=== PATIENT | female | born 1975 | race Caucasian/White ===

== ENCOUNTER 2017-08-09 08:04 | Emergency (ER) | payer BC ==
[~2017-08-09] VITALS: Ht 170.2 cm; Wt 88.3 kg
[~2017-08-09 08:04] MED LIST: CYCL-36 PO; IBUP800 PO; POTA10TA48 PO; PRED50 PO
[2017-08-09 08:05] VITALS: BP 120/60; PULSE 100; RESP 16; TEMP 101.3; O2SAT 95
[2017-08-09] MEDS ORDERED: ACETAMINOPHEN 325 MG TAB PO ONE (08:30)
[2017-08-09] MEDS ORDERED: ZOFR4TAB3 SL (08:34)
--- NOTE | 2017-08-09 08:35 | PD ---
HPI Chief Complaint: Cold / Flu Symptoms Time Seen by Provider: 08:20 Travel History International Travel<30 days: No Contact w/Intl Traveler<30days: No Traveled to known affect area: No History of Present Illness HPI This 42-year-old female has been sick for over a week. She had a upper respiratory symptoms for about a week with sore throat congestion. 2 days ago she started having fever headache. She had some vomiting at that time which has resolved. This continues to have fever sore throat. She has had a mild cough. She has generally healthy. She is not on any medication. 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 She is having diffuse myalgias PFSH Past Medical History Autoimmune Disease: No Cancer: No Cardiovascular Problems: No Diabetes: No Diminished Hearing: No Endocrine: No Gastrointestinal Disorders: Yes (CROHN'S) GERD: Yes Genitourinary: No Hiatal Hernia: No Immune Disorder: No Musculoskeletal: No Neurologic: No Psychiatric: No Reproductive: No Respiratory: No Immunizations Current: Yes Thyroid Disease: No Ulcer: No Tetanus Vaccination: Unknown Influenza Vaccination: No ?: Not LMP: 1 WEEK AGO Past Surgical History Abdominal Surgery: Yes (CHOLEYSYSTECTOMY, APPENDECTOMY,) Appendectomy: Yes Cardiac Surgery: No Cholecystectomy: Yes Ear Surgery: No Endocrine Surgery: No Eye Surgery: No Gynecologic Surgery: No Oral Surgery: No Thoracic Surgery: No Other Surgery: Yes (BOWEL RESECTION FROM CHRON'S) Social History Alcohol Use: No Tobacco Use: Yes (07/25 PPD) Substance Use: No Allergies-Medications (Allergen,Severity, Reaction): Coded Allergies: No Known Allergies (Unverified Adverse Reaction, Unknown, 08/09/17) Reported Meds & Prescriptions Reported Meds & Active Scripts Active No Active Prescriptions or Reported Medications Review of Systems General / Constitutional: Positive: Fever, Chills Eyes: Positive: Photophobia, No: Diploplia HENT: Positive: Headaches, Sore Throat Cardiovascular: No: Chest Pain or Discomfort Respiratory: Positive: Cough, No: Shortness of Breath, Wheezing Gastrointestinal: Positive: Nausea, Vomiting Genitourinary: No: Urgency, Frequency Musculoskeletal: Positive: Myalgias Endocrine: No: Heat Intolerance, Cold Intolerance Hematologic/Lymphatic: No: Easy Bruising Physical Exam Narrative GENERAL: Well-developed female. Temperature 101.3 SKIN: Focused skin assessment warm/dry. HEAD: Atraumatic. Normocephalic. EYES: Pupils equal and round. No scleral icterus. No injection or drainage. ENT: No nasal bleeding or discharge. Mucous membranes pink and moist. Posterior pharynx erythematous without exudate NECK: Trachea midline. No JVD. Some shotty anterior cervical adenopathy CARDIOVASCULAR: Regular rate and rhythm. No murmur appreciated. RESPIRATORY: No accessory muscle use. Clear to auscultation. Breath sounds equal bilaterally. GASTROINTESTINAL: Abdomen soft, non-tender, nondistended. Hepatic and splenic margins not palpable. MUSCULOSKELETAL: No obvious deformities. No clubbing. No cyanosis. No edema. NEUROLOGICAL: Awake and alert. No obvious cranial nerve deficits. Motor grossly within normal limits. Normal speech. PSYCHIATRIC: Appropriate mood and affect; insight and judgment normal. Data Data Last Documented VS Vital Signs Date Time Temp Pulse Resp B/P (MAP) Pulse Ox O2 Delivery O2 Flow Rate FiO2 08/09/17 08:25 Room Air 08/09/17 08:05 101.3 100 16 120/60 (80) 95 Orders Orders Acetaminophen (Tylenol) (08/09/17 08:30) MDM Medical Decision Making Medical Screen Exam Complete: Yes Emergency Medical Condition: Yes Medical Record Reviewed: Yes Differential Diagnosis Differential includes viral syndrome, influenza, Narrative Course Symptoms are most consistent with influenza. She is not a candidate for Tamiflu as she has been sick for over 2 day days. I will recommend rest, Tylenol or Advil for fever Diagnosis Primary Impression: Influenza Departure Forms: Tests/Procedures, Work Release Enter return to work date: Aug 13, 2017 Scripts Ondansetron Odt (Zofran Odt) 4 Mg Tab 4 MG SL Q6HR Y for Nausea/Vomiting, #10 TAB 0 Refills Prov: Gil Wu MD 08/09/17 Disposition: DISCHARGE HOME Condition: Stable Gil Wu MD Aug 09, 2017 08:35
== END 2017-08-09 08:56 | disposition home or self-care (01) ==
LOC: PHED 08:04
DX: J11.1 Influenza due to unidentified influenza virus with other respiratory manifestations (principal); R50.9 Fever, unspecified; R07.0 Pain in throat; R05 Cough; M79.1 Myalgia; F17.200 Nicotine dependence, unspecified, uncomplicated; Z87.19 Personal history of other diseases of the digestive system
CPT/HCPCS: 99283

== ENCOUNTER 2017-12-19 22:08 | Inpatient (IN) | payer BC ==
[~2017-12-19] VITALS: Ht 170.2 cm; Wt 86.2 kg
[~2017-12-19 22:08] MED LIST changes: -CYCL-36 PO; -IBUP800 PO; -POTA10TA48 PO; -PRED50 PO; +ZOFR4TAB3 SL
[2017-12-19 22:12] VITALS: BP 121/74; PULSE 95; RESP 16; TEMP 98.3; O2SAT 96
[2017-12-19] MEDS ORDERED: SODIUM CHLOR 0.9% 1000 ML INJ 1,000 ML IV SCH (22:22)
[2017-12-19] MEDS ORDERED: SODIUM CHLORIDE 0.9% FLUSH 10 ML FLUSH IV FLUSH PRN (22:30)
[2017-12-19] MEDS ORDERED: MORPHINE SULFATE 4 MG/ML INJ IV ONE (22:45)
[2017-12-19] MEDS ORDERED: methylPREDNISolone SOD SUCC 125 MG/2 ML VIAL IV PUSH ONE (22:45)
--- NOTE | 2017-12-19 22:49 | PD ---
HPI . Abdominal pain Chief Complaint: GI Complaint Time Seen by Provider: 22:19 Travel History International Travel<30 days: No Contact w/Intl Traveler<30days: No Traveled to known affect area: No History of Present Illness HPI This patient presents with a 10 day history of right-sided abdominal pain. She believes that she is having an exacerbation of her Crohn's disease. Her symptoms have been persistent and getting progressively worse. Pain is currently rated 6/10. She really does not have much in the way of associated symptoms. She always has loose stools. She has had no fever, vomiting or urinary tract symptoms. She is currently taking no medications for her Crohn's disease. She states that she is not able to afford them. She has had a previous resection of both her small and large bowel as well as a cholecystectomy and appendectomy. She has had at least 2 previous small bowel obstructions. PFSH Past Medical History Autoimmune Disease: No Cancer: No Cardiovascular Problems: No Diabetes: No Diminished Hearing: No Endocrine: No Gastrointestinal Disorders: Yes (CROHN'S) GERD: Yes Genitourinary: No Hiatal Hernia: No Immune Disorder: No Implanted Vascular Access Dvce: No Musculoskeletal: No Neurologic: No Psychiatric: No Reproductive: No Respiratory: No Immunizations Current: Yes Thyroid Disease: No Ulcer: No Tetanus Vaccination: > 5 Years Influenza Vaccination: No ?: Not LMP: 12/05/17 Past Surgical History Abdominal Surgery: Yes (CHOLEYSYSTECTOMY, APPENDECTOMY,) Appendectomy: Yes Cardiac Surgery: No Cholecystectomy: Yes Ear Surgery: No Endocrine Surgery: No Eye Surgery: No Gynecologic Surgery: No Neurologic Surgery: No Oral Surgery: No Thoracic Surgery: No Other Surgery: Yes (BOWEL RESECTION FROM CHRON'S) Social History Alcohol Use: No Tobacco Use: Yes (07/25 PPD) Substance Use: Yes (Marijuana OCC) Allergies-Medications (Allergen,Severity, Reaction): Coded Allergies: No Known Allergies (Unverified Adverse Reaction, Unknown, 12/19/17) Reported Meds & Prescriptions Reported Meds & Active Scripts Active Zofran Odt (Ondansetron Odt) 4 Mg Tab 4 Mg SL Q6HR PRN Review of Systems Except as stated in HPI: all other systems reviewed are Neg General / Constitutional: No: Fever, Chills Gastrointestinal: Positive: Diarrhea, Abdominal Pain, No: Nausea, Vomiting Genitourinary: No: Urgency, Frequency, Dysuria Physical Exam Narrative GENERAL: Awake and alert and in no acute distress. SKIN: warm/dry. HEAD: Normocephalic. Atraumatic. EYES: Pupils equal and round. No scleral icterus. No injection or drainage. ENT: No nasal bleeding or discharge. Mucous membranes pink and moist. NECK: Trachea midline. Full range of motion without pain.. CARDIOVASCULAR: Regular rate and rhythm. Heart sounds normal. RESPIRATORY: No accessory muscle use. Clear to auscultation. Breath sounds equal bilaterally. GASTROINTESTINAL: Abdomen soft. Diffuse tenderness on the right side. Bowel sounds present. Nondistended. MUSCULOSKELETAL: No obvious deformities. NEUROLOGICAL: Awake and alert. No obvious cranial nerve deficits. Motor grossly within normal limits. Normal speech. PSYCHIATRIC: Appropriate mood and affect; insight and judgment normal. Data Data Last Documented VS Vital Signs Date Time Temp Pulse Resp B/P (MAP) Pulse Ox O2 Delivery O2 Flow Rate FiO2 12/19/17 22:30 16 12/19/17 22:12 98.3 95 121/74 (90) 96 Orders Orders Complete Blood Count With Diff (12/19/17 22:22) Comprehensive Metabolic Panel (12/19/17 22:22) Lipase (12/19/17 22:22) Lactic Acid (12/19/17 22:22) Iv Access Insert/Monitor (12/19/17 22:22) Sodium Chlor 0.9% 1000 Ml Inj (Ns 1000 M (12/19/17 22:22) Sodium Chloride 0.9% Flush (Ns Flush) (12/19/17 22:30) Ed Urine Pregnancytest Poc (12/19/17 22:22) Ct Abd/Pel W Iv Contrast(Rout) (12/19/17 22:28) Morphine Inj (Morphine Inj) (12/19/17 22:45) Methylprednisolone So Succ Inj (Solumedr (12/19/17 22:45) Magnesium (Mg) (12/19/17 22:40) Potassium Chloride (Kcl) (12/19/17 23:15) Iohexol 350 Inj (Omnipaque 350 Inj) (12/19/17 23:39) Piperacil-Tazo 4.5 Gm Premix (Zosyn 4.5 (12/20/17 00:15) Consult General Surgery (12/20/17 ) Admit To Inpatient (12/20/17 ) Vital Signs (Adult) Q4H (12/20/17 00:30) Activity Oob With Assistance (12/20/17 00:30) [facility] / Telemetry .CONTINUOUS (12/20/17 00:30) Diet Npo (12/20/17 Breakfast) D5-1/2 Ns + Kcl 20 Meq Inj (D5-1/2 Ns + (12/20/17 00:30) Sodium Chloride 0.9% Flush (Ns Flush) (12/20/17 00:30) Sodium Chloride 0.9% Flush (Ns Flush) (12/20/17 09:00) Basic Metabolic Panel (Bmp) (12/20/17 06:00) Complete Blood Count With Diff (12/20/17 06:00) Scd Bilateral/Knee High HILDA.BID (12/20/17 00:30) Angel Bilateral/Knee High HILDA.QSHIFT (12/20/17 00:30) Naloxone Inj (Narcan Inj) (12/20/17 00:30) Inpatient Certification (12/20/17 ) Piperacil-Tazo 3.375 Gm Premix (Zosyn 3. (12/20/17 06:00) Prochlorperazine Inj (Compazine Inj) (12/20/17 00:45) Morphine Inj (Morphine Inj) (12/20/17 00:30) Admit Order (Ed Use Only) (12/20/17 ) Vital Signs (Adult) Q4H (12/20/17 00:44) Activity Oob With Assistance (12/20/17 00:44) Notify Dr: Other (12/20/17 00:44) Labs Laboratory Tests Test 12/19/17 22:40 White Blood Count 15.2 TH/MM3 Red Blood Count 4.08 MIL/MM3 Hemoglobin 10.9 GM/DL Hematocrit 32.7 % Mean Corpuscular Volume 80.2 FL Mean Corpuscular Hemoglobin 26.9 PG Mean Corpuscular Hemoglobin Concent 33.5 % Red Cell Distribution Width 13.4 % Platelet Count 474 TH/MM3 Mean Platelet Volume 7.9 FL Neutrophils (%) (Auto) 69.2 % Lymphocytes (%) (Auto) 20.6 % Monocytes (%) (Auto) 4.8 % Eosinophils (%) (Auto) 0.7 % Basophils (%) (Auto) 4.7 % Neutrophils # (Auto) 10.6 TH/MM3 Lymphocytes # (Auto) 3.1 TH/MM3 Monocytes # (Auto) 0.7 TH/MM3 Eosinophils # (Auto) 0.1 TH/MM3 Basophils # (Auto) 0.7 TH/MM3 CBC Comment DIFF FINAL Differential Comment Blood Urea Nitrogen 5 MG/DL Creatinine 0.93 MG/DL Random Glucose 105 MG/DL Total Protein 7.6 GM/DL Albumin 3.0 GM/DL Calcium Level 8.8 MG/DL Magnesium Level 1.8 MG/DL Alkaline Phosphatase 99 U/L Aspartate Amino Transf (AST/SGOT) 17 U/L Alanine Aminotransferase (ALT/SGPT) 27 U/L Total Bilirubin 0.3 MG/DL Sodium Level 140 MEQ/L Potassium Level 2.8 MEQ/L Chloride Level 105 MEQ/L Carbon Dioxide Level 30.4 MEQ/L Anion Gap 5 MEQ/L Estimat Glomerular Filtration Rate 66 ML/MIN Lactic Acid Level 1.1 mmol/L Lipase 98 U/L [facility] Medical Decision Making Medical Screen Exam Complete: Yes Emergency Medical Condition: Yes Medical Record Reviewed: Yes (The patient was admitted here in 2016 with an exacerbation of her Crohn's disease. She was treated with Solu-Medrol followed by prednisone, Flagyl and Protonix. No operative procedure was required at that time. Her CT scan did show an SBO.) Differential Diagnosis Differential diagnosis of abdominal pain includes but is not limited to gastritis, pancreatitis, hepatitis, gastroenteritis, constipation, urinary retention, peptic ulcer disease, diverticulitis or appendicitis Narrative Course This patient presents with right-sided abdominal pain for the last week and a half. She has a history of Crohn's disease. She has had a previous cholecystectomy and appendectomy. She has also had previous partial resection of her small and large bowels. An IV has been started. She will be given IV morphine for pain. Solu-Medrol has been ordered for presumed inflammation. Routine abdominal pain labs are pending along with a lactic acid level. CT of the abdomen and pelvis have also been ordered. I have queried [facility]. She has not had any recent scheduled prescriptions filled in [place]. CBC & BMP Diagram 12/19/17 22:40 Total Protein 7.6, Albumin 3.0 L, Calcium Level 8.8, Magnesium Level 1.8, Alkaline Phosphatase 99, Aspartate Amino Transf (AST/SGOT) 17, Alanine Aminotransferase (ALT/SGPT) 27, Total Bilirubin 0.3 LA 1.1 Potassium has been replaced orally. Last Impressions Abdomen/Pelvis CT 12/19/179 Signed Impressions: CONCLUSION: Focal abscess is almost 3.1 cm in size adjacent to loops of bowel r ight lower quadrant with haziness of the adjacent mesenteric fat not present on the prior exam from 2016 and appears to be outside of the loops of bowel. I have ordered Zosyn. I will consult the hospitalist for admission with surgical consultation. IR may also be able to assist with the abscess. Diagnosis Primary Impression: Abdominal pain Qualified Codes: R10.11 - Right upper quadrant pain Additional Impressions: Hypokalemia Leukocytosis Qualified Codes: D72.829 - Elevated white blood cell count, unspecified Intra-abdominal abscess Admitting Information Admitting Physician Requests: Admit Condition: Stable Krystle Urbnia MD December 19, 2017 22:49
[2017-12-19 22:54] LABS: AUTOMATED NEUTROPHIL # 10.6 TH/MM3 (1.8-7.7); BASOPHIL # 0.7 TH/MM3 (0-0.2); BASOPHIL % 4.7 % (0.0-2.0); EOSINOPHIL # 0.1 TH/MM3 (0-0.4); EOSINOPHIL % 0.7 % (0.0-4.0); HEMATOCRIT 32.7 % (35.0-46.0); HEMOGLOBIN 10.9 GM/DL (11.6-15.3); LYMPH % 20.6 % (9.0-44.0); LYMPHOCYTE # 3.1 TH/MM3 (1.0-4.8); MEAN CELL VOLUME 80.2 FL (80.0-100.0); MEAN CORPUSCULAR HEMOGLOBIN 26.9 PG (27.0-34.0); MEAN CORPUSCULAR HGB CONC 33.5 % (32.0-36.0); MEAN PLATELET VOLUME 7.9 FL (7.0-11.0); MONO % 4.8 % (0.0-8.0); MONOCYTE # 0.7 TH/MM3 (0-0.9); NEUT % 69.2 % (16.0-70.0); PLATELET COUNT 474 TH/MM3 (150-450); RED BLOOD COUNT 4.08 MIL/MM3 (4.00-5.30); RED CELL DISTRIBUTION WIDTH 13.4 % (11.6-17.2); WHITE BLOOD COUNT 15.2 TH/MM3 (4.0-11.0)
[2017-12-19 23:06] LABS: ALKALINE PHOSPHATASE 99 U/L (45-117); ALT (GPT) 27 U/L (10-53); AST (GOT) 17 U/L (15-37); BICARBONATE 30.4 MEQ/L (21.0-32.0); BLOOD UREA NITROGEN 5 MG/DL (7-18); CALCIUM 8.8 MG/DL (8.5-10.1); CHLORIDE 105 MEQ/L (98-107); CREATININE 0.93 MG/DL (0.50-1.00); GLOMERULAR FILTRATION RATE 66 ML/MIN (>89); GLUCOSE,RANDOM 105 MG/DL (74-106); MAGNESIUM 1.8 MG/DL (1.5-2.5); SODIUM (NA) 140 MEQ/L (136-145); TOTAL BILIRUBIN ADULT 0.3 MG/DL (0.2-1.0); TOTAL PROTEIN 7.6 GM/DL (6.4-8.2)
[2017-12-19] MEDS ORDERED: POTASSIUM CHLORIDE 20 MEQ CONTROLLED RELEASE TAB PO ONE (23:15)
[2017-12-19] MEDS ORDERED: IOHEXOL 350 MG/ML 10 ML VIAL (for RAD DIAG) IVCONTRAST ONE (23:39)
--- NOTE | 2017-12-20 00:09 | RADRPT ---
EXAM DATE: 12/19/2017 11:50 PM EDT AGE/SEX: 42 years / Female INDICATIONS: Right abdominal pain. CLINICAL DATA: This is the patient's initial encounter. Patient reports that signs and symptoms have been present for 1 day and indicates a pain score of 6/10. MEDICAL/SURGICAL HISTORY: Crohn's disease. Colon resection. Cholecystectomy. Appendectomy. ORAL CONTRAST: No oral contrast ingested. RADIATION DOSE: 17.41 CTDI (mGy) COMPARISON: [facility], CT ABDOMEN & PELVIS W CONTRAST, 08/07/2015. . TECHNIQUE: Multiple contiguous axial images were obtained through the abdomen and pelvis following b olus infusion of 95 ml Omnipaque 350 (iohexol) nonionic water-soluble contrast as a single exam dos e. No oral contrast ingested. Using automated exposure control and adjustment of the mA and/or kV ac cording to patient size, the radiation dose was kept as low as reasonably achievable to obtain optima l diagnostic quality images. FINDINGS: Abdomen CT: The liver, spleen, pancreas, kidneys, adrenals are unremarkable. There is no evidence for any appreci able pathological adenopathy, free fluid. There is slight dependent atelectasis in both lung bases. There are postsurgical changes in the right lower quadrant from prior colon resection and appendectom y with haziness of the mesenteric fat plane at this site and there are a few loops of small bowel sli ghtly dilated maximum diameter of almost 3.6 cm. The rest of the small bowel loops and colon appear d ecompressed. Adjacent to these loops of bowel are slightly prominent there is fluid and gas collectio n appears to be outside of the loops of bowel measures almost 3.1 cm in size highly suspicious for an abscess outside of the loops of bowel. Pelvic CT: There is no evidence for mass, abscess formation, or any significant adenopathy within the pelvis. T here are multiple tiny bone islands within the pelvic bones including bilateral proximal femurs, righ t ischium, bilateral pubic rami and iliac bones. Approximate 2.8 cm cyst is present in the right ovar y. CONCLUSION: Focal abscess is almost 3.1 cm in size adjacent to loops of bowel right lower quadrant wi th haziness of the adjacent mesenteric fat not present on the prior exam from 2015 and appears to be outside of the loops of bowel. Electronically signed by: iNa Jhaveri MD 12/20/2017 12:08 AM EDT
[2017-12-20] MEDS ORDERED: PIPERACIL-TAZO 4.5 GM PREMIX 100 ML IV ONE (00:15)
[2017-12-20] MEDS ORDERED: SODIUM CHLORIDE 0.9% FLUSH 10 ML FLUSH IV FLUSH PRN (00:30)
[2017-12-20] MEDS ORDERED: NALOXONE HCL 0.4 MG/ML AMP IV PUSH PRN (00:30)
[2017-12-20] MEDS ORDERED: PROCHLORPERAZINE INJ 10 MG/2 ML VIAL IM PRN (00:45)
[2017-12-20] MEDS: MORPHINE SULFATE 4 MG/ML INJ IV PUSH PRN ×5 (00:58→23:54)
[2017-12-20] MEDS: D5-1/2 NS + KCL 20 MEQ INJ 1,000 ML IV SCH ×3 (00:58→19:13)
[2017-12-20 01:00] VITALS: BP 126/78; PULSE 80; RESP 16; O2SAT 98
[2017-12-20 01:48] VITALS: BP 122/77; PULSE 81; RESP 20; TEMP 97.8; O2SAT 95
[2017-12-20] MEDS: PIPERACIL-TAZO 3.375 GM PREMIX 50 ML IV SCH ×3 (05:00→23:47)
[2017-12-20 06:39] LABS: AUTOMATED NEUTROPHIL # 14.4 TH/MM3 (1.8-7.7); BASOPHIL % 0.2 % (0.0-2.0); EOSINOPHIL # 0.1 TH/MM3 (0-0.4); EOSINOPHIL % 0.6 % (0.0-4.0); HEMATOCRIT 32.2 % (35.0-46.0); HEMOGLOBIN 10.8 GM/DL (11.6-15.3); LYMPH % 5.5 % (9.0-44.0); LYMPHOCYTE # 0.8 TH/MM3 (1.0-4.8); MEAN CELL VOLUME 80.8 FL (80.0-100.0); MEAN CORPUSCULAR HGB CONC 33.4 % (32.0-36.0); MEAN PLATELET VOLUME 8.4 FL (7.0-11.0); MONO % 0.6 % (0.0-8.0); MONOCYTE # 0.1 TH/MM3 (0-0.9); NEUT % 93.1 % (16.0-70.0); PLATELET COUNT 419 TH/MM3 (150-450); RED BLOOD COUNT 3.98 MIL/MM3 (4.00-5.30); RED CELL DISTRIBUTION WIDTH 13.3 % (11.6-17.2); WHITE BLOOD COUNT 15.4 TH/MM3 (4.0-11.0)
[2017-12-20 07:04] LABS: BICARBONATE 24.4 MEQ/L (21.0-32.0); CALCIUM 8.1 MG/DL (8.5-10.1); CREATININE 0.78 MG/DL (0.50-1.00)
[2017-12-20 07:50] VITALS: BP 99/58; PULSE 66; RESP 20; TEMP 96; O2SAT 96
[2017-12-20] MEDS: metroNIDAZOLE 500 MG INJ 100 ML IV SCH ×2 (08:06→16:03)
[2017-12-20] MEDS: SODIUM CHLORIDE 0.9% FLUSH 10 ML FLUSH IV FLUSH SCH ×2 (08:08→21:00)
--- NOTE | 2017-12-20 10:41 | HHI.HP ---
[facility] No Primary Care Physician Admission Diagnosis intra-abdominal abscess, Crohn's Diagnoses: (1) Abdominal pain (2) Intra-abdominal abscess (3) Hypokalemia (4) Exacerbation of Crohn's disease Chief Complaint: Abdominal pain Travel History International Travel<30 Days: No Contact w/Intl Traveler <30 Da: No Traveled to Known Affected Are: No History of Present Illness Written by Lanie Laughlin, acting as scribe for Dr. Obando on 12/20/17 at 10:41. This is a pleasant 42-year-old female patient with a known medical history of Crohn's disease and GERD and history of bowel resection who presented to the ED with complaints of abdominal pain. Patient states her symptoms started 7 days ago shortly after taking the first couple doses of a Z-Troy prescribed for an URI. Patient complaints of mid-epigastric abdominal pain that has progressively gotten worse over the past week. The abdominal pain is characteristically "pressure-like" and sharp in nature, worsens with movement and any activity, is intermittent and radiates to her right upper and lower quadrant as well as down to her groin area. She states that the IV morphine has been effective for her pain since presentation. The patient rated her pain a 6 out of 10 at its worst on pain scale. Denies any associated nausea, vomiting. She does have a history of Crohn's disease, states she has diarrhea and loose stools frequently. Also admits to black stools and recently more fatigued than normal. Denies any history of anemia. Denies any recent fever, chills, dysuria. She does state that her upper respiratory complaints have since improved after the Z -troy. Follows with a PCP at [facility]. Does not have a aging box hand. Patient recently just obtained health insurance after lack of insurance for many years. Patient denies taking her Crohn's medications due to inability to afford them. Now that she has insurance she is following with her PCP. Last colonoscopy was 7 years ago and unaware of findings. Review of Systems Constitutional: COMPLAINS OF: Fatigue, DENIES: Diaphoretic episodes, Fever, Chills Eyes: DENIES: Diplopia Respiratory: DENIES: Cough, Sputum production, Shortness of breath Cardiovascular: DENIES: Chest pain, Palpitations Gastrointestinal: COMPLAINS OF: Abdominal pain, Black stools, Diarrhea, DENIES : Bloody stools, Constipation, Nausea, Vomiting Musculoskeletal: DENIES: Joint pain Hematologic/lymphatic: DENIES: Bruising Immunologic/allergic: DENIES: Eczema Neurologic: DENIES: Abnormal gait Psychiatric: DENIES: Anxiety Except as stated in HPI: all other systems reviewed are Neg Past Family Social History Past Medical History Crohn's disease GERD Tobacco abuse Past Surgical History History of bowel resection secondary to Crohn's, 11 years ago. Cholecystectomy Appendectomy Port placement for long-term antibiotics, history of blood clot. Has since been removed. Reported Medications Denies any medications. Allergies: Coded Allergies: No Known Allergies (Unverified Adverse Reaction, Unknown, 12/19/17) Active Ordered Medications Current Medications Medications (Trade) Dose Ordered Sig/Kindra Route Start Time Stop Time Status Last Admin Potassium Chloride/Dextrose/ Sod Cl 1,000 ml @ 100 mls/hr Q10H IV 12/20/17 00:30 12/20/17 00:58 (NS Flush) 2 ml UNSCH PRN IV FLUSH 12/20/17 00:30 (NS Flush) 2 ml BID IV FLUSH 12/20/17 09:00 12/20/17 08:08 (Narcan Inj) 0.4 mg UNSCH PRN IV PUSH 12/20/17 00:30 (Morphine Inj) 2 mg Q4H PRN IV PUSH 12/20/17 00:30 12/20/17 09:54 Piperacillin Sod/ Tazobactam Sod 50 ml @ 100 mls/hr Q6H IV 12/20/17 06:00 12/20/17 05:00 (Compazine Inj) 5 mg Q4H PRN IM 12/20/17 00:45 Metronidazole 100 ml @ 100 mls/hr Q8H IV 12/20/17 08:00 12/20/17 08:06 Family History Paternal medical history significant for diabetes. Mother had a history of IBS. Social History Patient admits to smoking half pack per day of cigarettes since her teen years. Admits to occasional marijuana use. Denies any alcohol use. Physical Exam Vital Signs Vital Signs Date Time Temp Pulse Resp B/P (MAP) Pulse Ox O2 Delivery O2 Flow Rate FiO2 12/20/17 07:50 96.0 66 20 99/58 (72) 96 12/20/17 05:02 18 12/20/17 01:48 97.8 81 20 122/77 (92) 95 12/20/17 01:24 12/20/17 01:00 80 16 126/78 (94) 98 Room Air 12/19/17 22:30 16 12/19/17 22:12 98.3 95 16 121/74 (90) 96 Physical Exam GENERAL: Well-developed, well-nourished patient in NAD. SKIN: Warm and dry. No rash. HEAD: Normocephalic. Atraumatic. EYES: Pupils equal and round. No scleral icterus. No injection or drainage. ENT: No nasal bleeding or discharge. Mucous membranes pink and moist. NECK: Supple. Trachea midline. CARDIOVASCULAR: Regular rate and rhythm. S1, S2 noted. No murmur appreciated. RESPIRATORY: No accessory muscle use. Clear to auscultation. Breath sounds equal bilaterally. GASTROINTESTINAL: Abdomen soft, non-tender, nondistended. Normoactive bowel sounds x4. MUSCULOSKELETAL: No obvious deformities. Extremities without clubbing, cyanosis , or edema. NEUROLOGICAL: Awake and alert. No obvious cranial nerve deficits. Motor grossly within normal limits. 5/5 muscle strength in bilateral upper and lower extremities. Normal speech. PSYCHIATRIC: Appropriate mood and affect; insight and judgment normal. Laboratory Laboratory Tests Test 12/19/17 22:40 12/20/17 05:40 White Blood Count 15.2 15.4 Red Blood Count 4.08 3.98 Hemoglobin 10.9 10.8 Hematocrit 32.7 32.2 Mean Corpuscular Volume 80.2 80.8 Mean Corpuscular Hemoglobin 26.9 27.0 Mean Corpuscular Hemoglobin Concent 33.5 33.4 Red Cell Distribution Width 13.4 13.3 Platelet Count 474 419 Mean Platelet Volume 7.9 8.4 Neutrophils (%) (Auto) 69.2 93.1 Lymphocytes (%) (Auto) 20.6 5.5 Monocytes (%) (Auto) 4.8 0.6 Eosinophils (%) (Auto) 0.7 0.6 Basophils (%) (Auto) 4.7 0.2 Neutrophils # (Auto) 10.6 14.4 Lymphocytes # (Auto) 3.1 0.8 Monocytes # (Auto) 0.7 0.1 Eosinophils # (Auto) 0.1 0.1 Basophils # (Auto) 0.7 0.0 CBC Comment DIFF FINAL DIFF FINAL Differential Comment Blood Urea Nitrogen 5 5 Creatinine 0.93 0.78 Random Glucose 105 150 Total Protein 7.6 Albumin 3.0 Calcium Level 8.8 8.1 Magnesium Level 1.8 Alkaline Phosphatase 99 Aspartate Amino Transf (AST/SGOT) 17 Alanine Aminotransferase (ALT/SGPT) 27 Total Bilirubin 0.3 Sodium Level 140 140 Potassium Level 2.8 3.6 Chloride Level 105 107 Carbon Dioxide Level 30.4 24.4 Anion Gap 5 9 Estimat Glomerular Filtration Rate 66 81 Lactic Acid Level 1.1 Lipase 98 Result Diagram: 12/20/17 0540 12/20/17 0540 Imaging Last Impressions Abdomen/Pelvis CT 12/19/17 3560 Signed Impressions: CONCLUSION: Focal abscess is almost 3.1 cm in size adjacent to loops of bowel r ight lower quadrant with haziness of the adjacent mesenteric fat not present on the prior exam from 2015 and appears to be outside of the loops of bowel. Septic Shock Reassessment Septic shock perfusion: reassessment completed Caprini VTE Risk Assessment Caprini VTE Risk Assessment: No/Low Risk (score <= 1) Caprini Risk Assessment Model Point Value = 1 Point Value = 2 Point Value = 3 Point Value = 5 Age 41-60 Minor surgery BMI > 25 kg/m2 Swollen legs Varicose veins or History of unexplained or recurrent spontaneous Oral contraceptives or hormone replacement Sepsis (< 1 month) Serious lung disease, including pneumonia (< 1 month) Abnormal pulmonary function Acute myocardial infarction Congestive heart failure (< 1 month) History of inflammatory bowel disease Medical patient at bed rest Age 61-74 Arthroscopic surgery Major open surgery (> 45 min) Laparoscopic surgery (> 45 min) Malignancy Confined to bed (> 72 hours) Immobilizing plaster cast Central venous access Age >= 75 History of VTE Family history of VTE Factor V Leiden Prothrombin [id number] Lupus anticoagulant Anticardiolipin antibodies Elevated serum homocysteine Heparin-induced thrombocytopenia Other congenital or acquired thrombophilia Stroke (< 1 month) Elective arthroplasty Hip, pelvis, or leg fracture Acute spinal cord injury (< 1 month) Prophylaxis Regimen Total Risk Factor Score Risk Level Prophylaxis Regimen 0-1 Low Early ambulation 2 Moderate Order ONE of the following: *Sequential Compression Device (SCD) *Heparin 5000 units SQ BID 3-4 Higher Order ONE of the following medications: *Heparin 5000 units SQ TID *Enoxaparin/Lovenox 40 mg SQ daily (WT < 150 kg, CrCl > 30 mL/min) *Enoxaparin/Lovenox 30 mg SQ daily (WT < 150 kg, CrCl > 10-29 mL/min) *Enoxaparin/Lovenox 30 mg SQ BID (WT < 150 kg, CrCl > 30 mL/min) AND/OR *Sequential Compression Device (SCD) 5 or more Highest Order ONE of the following medications: *Heparin 5000 units SQ TID (Preferred with Epidurals) *Enoxaparin/Lovenox 40 mg SQ daily (WT < 150 kg, CrCl > 30 mL/min) *Enoxaparin/Lovenox 30 mg SQ daily (WT < 150 kg, CrCl > 10-29 mL/min) *Enoxaparin/Lovenox 30 mg SQ BID (WT < 150 kg, CrCl > 30 mL/min) AND *Sequential Compression Device (SCD) Assessment and Plan Assessment and Plan This is a pleasant 42-year-old female patient with a known medical history of Crohn's disease and GERD and history of bowel resection who presented to the ED with complaints of abdominal pain. Abdominal focal abscess with associated abdominal pain History of Crohn's disease, untreated History of GERD - CT abdomen showing focal mass 3.1 cm in the right upper quadrant adjacent to loops of bowel. - Consult placed to colorectal surgeon as well as gastroenterology, input and recommendations pending. Colorectal surgeon will be ground control approach technician tomorrow, consult will be placed then. - Will transfer to [facility] for possible percutaneous drainage by IR vs need for surgical intervention. - Patient with leukocytosis, white blood cell 15.4 with mild left band shift. Placed on IV Zosyn and IV Flagyl. Will continue. Continue to monitor CBC. Patient has been afebrile. - Was given IV Solu-Medrol in ED. Will place on scheduled steroids for now. Await GI further recs. - Was also given 1 L NS bolus in ED. Ensure hydration, continue IV fluids. Ice chips for now. Await colorectal surgical consult input. - Control pain, morphine IV available as needed. - Compazine available for nausea as needed. - Supportive care. Normochromic normocytic anemia - Hemoglobin 10.8/hematocrit 32.2 on presentation. No signs of active bleeding. Denies any history of anemia. - Patient complains of black stools. Will obtain Hemoccult. - Iron studies ordered, pending. - Follow CBC. Hypokalemia: Potassium 2.8 on presentation. Patient was given replacement. Potassium has resolved to 3.6. Magnesium normal. Continue to follow BMP. DVT prophylaxis: SCDs. Ambulation. This note was transcribed by oli Laughlin. I, Dr. Erick Obando personally performed the history, physical exam, and medical decision making; and confirmed the accuracy of the information in the transcribed note. Authenticated by Dr. Erick Obando on 12/20/17 at 10:41. Code Status Full code Discussed Condition With Patient Physician Certification 2 Midnight Certification Type: Admission for Inpatient Services Order for Inpatient Services The services are ordered in accordance with Medicare regulations or non- Medicare payer requirements, as applicable. In the case of services not specified as inpatient-only, they are appropriately provided as inpatient services in accordance with the 2-midnight benchmark. Estimated LOS (days): 3 3 days is the estimated time the patient will need to remain in the hospital, assuming treatment plan goals are met and no additional complications. Post-Hospital Plan: Home Problem Qualifiers (1) Abdominal pain: Qualified Codes: R10.11 - Right upper quadrant pain Lanie Laughlin December 20, 2017 10:41 Erick Obando MD December 20, 2017 10:42
[2017-12-20 11:50] VITALS: BP 104/61; PULSE 69; RESP 20; TEMP 98.7; O2SAT 97
[2017-12-20] MEDS: predniSONE 20 MG TAB PO SCH (13:20)
[2017-12-20 13:53] LABS: % SATURATION IRON PROFILE 5.5 % (20-50); IRON (FE) 20 MCG/DL (50-170); TOTAL IRON BINDING CAPACITY 365 MCG/DL (250-450)
--- NOTE | 2017-12-20 14:03 | PD.CONS ---
HPI History of Present Illness This is a 42 year old obese female was admitted to the hospital on 12/20/2017 with symptoms of right upper quadrant and right lower quadrant abdominal pain. Onset of patient's symptoms has been approximately 1 week and progressively got worse. Patient has a significant history of Crohn's disease for approximately 14 years and while she had insurance was on Humira in fairly well-controlled but lost insurance and has had no treatment over the past 3 years except for Flagyl, Cipro, prednisone. Patient states she has anywhere from 4-10+ loose dark diarrheal stools which sometimes have a bile color and consistency. She does not note any obvious rectal blood. Patient does have associated nausea and some vomiting with her Crohn's abdominal pain but denies any dysphasia or any heartburn. Patient denies any constipation but does note a change in her abdominal pain and number of diarrhea stools which in the past have meant a possible stricture. Currently she has had some pressure-like abdominal pain which is sharp that waxes and wanes. Patient denies any family history of colon cancer, she denies any alcohol intake but does have tobacco dependence approximately half a pack a day for 20 years. Patient does note a previous small bowel colon resection approximately 11 years ago and did fairly well with her symptoms up until she was off Humira. CT scan shows focal abscess approximately 3.1 cm in size adjacent to loops of bowel. Adjacent mesenteric fat not present on the prior exam and appears to be outside of the loops of bowel. PFSH Past Medical History Crohn's disease GERD Tobacco abuse Chronic abdominal pain with diarrhea Past Surgical History Per the record and patient history of bowel resection secondary to Crohn's, 11 years ago. Cholecystectomy Appendectomy Port placement for long-term antibiotics, history of blood clot. Has since been removed. Coded Allergies: No Known Allergies (Unverified Adverse Reaction, Unknown, 12/19/17) Medications Last Impressions Abdomen/Pelvis CT 12/19/17 0490 Signed Impressions: CONCLUSION: Focal abscess is almost 3.1 cm in size adjacent to loops of bowel r ight lower quadrant with haziness of the adjacent mesenteric fat not present on the prior exam from 2015 and appears to be outside of the loops of bowel. Family History Paternal medical history significant for diabetes. Mother had a history of IBS. Social History Patient admits to smoking half pack per day of cigarettes since her teen years. Admits to occasional marijuana use. Denies any alcohol use. Review of Systems Gastrointestinal: COMPLAINS OF: Abdominal pain, Black stools, Diarrhea, Nausea , Vomiting GI Exam Vitals I&O Vital Signs Date Time Temp Pulse Resp B/P (MAP) Pulse Ox O2 Delivery O2 Flow Rate FiO2 12/20/17 07:50 96.0 66 20 99/58 (72) 96 12/20/17 05:02 18 12/20/17 01:48 97.8 81 20 122/77 (92) 95 12/20/17 01:24 12/20/17 01:00 80 16 126/78 (94) 98 Room Air 12/19/17 22:30 16 12/19/17 22:12 98.3 95 16 121/74 (90) 96 I/O 12/19/17 12/19/17 12/19/17 12/20/17 12/20/17 12/20/17 07:00 15:00 23:00 07:00 15:00 23:00 Intake Total 1100 ml Balance 1100 ml Intake IV Total 1100 ml Imaging Last Impressions Abdomen/Pelvis CT 12/19/174 Signed Impressions: CONCLUSION: Focal abscess is almost 3.1 cm in size adjacent to loops of bowel r ight lower quadrant with haziness of the adjacent mesenteric fat not present on the prior exam from 2016 and appears to be outside of the loops of bowel. Laboratory Test 12/19/17 22:40 12/20/17 05:40 White Blood Count 15.2 TH/MM3 15.4 TH/MM3 Red Blood Count 4.08 MIL/MM3 3.98 MIL/MM3 Hemoglobin 10.9 GM/DL 10.8 GM/DL Hematocrit 32.7 % 32.2 % Mean Corpuscular Volume 80.2 FL 80.8 FL Mean Corpuscular Hemoglobin 26.9 PG 27.0 PG Mean Corpuscular Hemoglobin Concent 33.5 % 33.4 % Red Cell Distribution Width 13.4 % 13.3 % Platelet Count 474 TH/MM3 419 TH/MM3 Mean Platelet Volume 7.9 FL 8.4 FL Neutrophils (%) (Auto) 69.2 % 93.1 % Lymphocytes (%) (Auto) 20.6 % 5.5 % Monocytes (%) (Auto) 4.8 % 0.6 % Eosinophils (%) (Auto) 0.7 % 0.6 % Basophils (%) (Auto) 4.7 % 0.2 % Neutrophils # (Auto) 10.6 TH/MM3 14.4 TH/MM3 Lymphocytes # (Auto) 3.1 TH/MM3 0.8 TH/MM3 Monocytes # (Auto) 0.7 TH/MM3 0.1 TH/MM3 Eosinophils # (Auto) 0.1 TH/MM3 0.1 TH/MM3 Basophils # (Auto) 0.7 TH/MM3 0.0 TH/MM3 CBC Comment DIFF FINAL DIFF FINAL Differential Comment Blood Urea Nitrogen 5 MG/DL 5 MG/DL Creatinine 0.93 MG/DL 0.78 MG/DL Random Glucose 105 MG/DL 150 MG/DL Total Protein 7.6 GM/DL Albumin 3.0 GM/DL Calcium Level 8.8 MG/DL 8.1 MG/DL Magnesium Level 1.8 MG/DL Alkaline Phosphatase 99 U/L Aspartate Amino Transf (AST/SGOT) 17 U/L Alanine Aminotransferase (ALT/SGPT) 27 U/L Total Bilirubin 0.3 MG/DL Sodium Level 140 MEQ/L 140 MEQ/L Potassium Level 2.8 MEQ/L 3.6 MEQ/L Chloride Level 105 MEQ/L 107 MEQ/L Carbon Dioxide Level 30.4 MEQ/L 24.4 MEQ/L Anion Gap 5 MEQ/L 9 MEQ/L Estimat Glomerular Filtration Rate 66 ML/MIN 81 ML/MIN Lactic Acid Level 1.1 mmol/L Lipase 98 U/L Physical Examination HEENT: Obese, normocephalic, atraumatic, speech understandable, no obvious nasal discharge. NECK: Neck is supple, no JVD, no lymphadenopathy. CHEST: Chest is clear to auscultation and percussion., No shortness of breath at rest CARDIAC: Regular rate and rhythm ABDOMEN: Round, obese, soft, nondistended, tenderness in the right upper and right lower quadrant dull pain with sharp pains off and on bowel sounds are present in all four quadrants. EXTREMITIES: No clubbing, cyanosis, or edema. SKIN: Pale; no rash; no jaundice. HORSE SHOW MANAGER: No focal deficits; alert and oriented times three., Good historian Assessment and Plan Plan 42-year-old obese female with a history of Crohn's disease for approximately 14 years comes into the hospital on 12/20/2017 with symptoms of right-sided abdominal pain with some nausea vomiting. Stools uncontrolled 10+ a day for the past week and symptoms continue to worsen. Patient has been on Humira in the past but lost her insurance approximately 3 years ago and generalized Crohn' s symptoms have worsened over that period of time she has been on Flagyl, Cipro , and prednisone at different intervals. She does note some nausea and vomiting associated with her Crohn's and abdominal pain. No family history of colon cancer. Positive for tobacco use and occasional marijuana but no alcohol. Currently patient is waiting on transfer to [facility], gastroenterology will continue to follow and we appreciate consult. Colorectal has been consulted and will see the patient at some point tomorrow for further recommendations. Plan Small bowel series with Gastrografin If needed consider IR consult for possible drainage of her abscess, but will wait on recommendations from colorectal Annettesyn IV Diet clear liquids for now, monitor symptoms of nausea and vomiting Prednisone Antiemetics Supportive care Further recommendations to follow Patient was seen per myself and Dr. Bailey, note was written on her behalf Porsha Clemens December 20, 2017 14:03
[2017-12-20 17:43] VITALS: BP 111/58; PULSE 77; RESP 18; TEMP 98.1; O2SAT 95
[2017-12-20 20:00] VITALS: BP 105/57; PULSE 68; RESP 16; TEMP 97.5; O2SAT 92
[2017-12-21] VITALS: BP 90/55; PULSE 76; RESP 18; TEMP 98.1; O2SAT 96
[2017-12-21] MEDS: metroNIDAZOLE 500 MG INJ 100 ML IV SCH ×3 (00:55→17:00)
[2017-12-21 04:00] VITALS: BP 98/56; PULSE 64; RESP 18; TEMP 98; O2SAT 96
[2017-12-21] MEDS: D5-1/2 NS + KCL 20 MEQ INJ 1,000 ML IV SCH ×2 (06:05→16:30)
[2017-12-21] MEDS: PIPERACIL-TAZO 3.375 GM PREMIX 50 ML IV SCH ×3 (06:05→18:15)
[2017-12-21] MEDS: SODIUM CHLORIDE 0.9% FLUSH 10 ML FLUSH IV FLUSH SCH ×2 (07:21→19:50)
[2017-12-21 08:00] VITALS: BP 98/56; PULSE 60; RESP 17; TEMP 97.6; O2SAT 96
[2017-12-21] MEDS: predniSONE 20 MG TAB PO SCH (08:55)
--- NOTE | 2017-12-21 08:57 | HHI.PR ---
Subjective Remarks Has pain her belly right upper quadrant. No nausea or vomiting. No diarrhea or constipation. Said however she is n.p.o. at this time. No fever or chills overnight Objective Vitals Vital Signs Date Time Temp Pulse Resp B/P (MAP) Pulse Ox O2 Delivery O2 Flow Rate FiO2 12/21/17 08:00 97.6 60 17 98/56 (70) 96 12/21/17 04:00 98.0 64 18 98/56 (70) 96 12/21/17 00:00 98.1 76 18 90/55 (67) 96 12/20/17 20:00 97.5 68 16 105/57 (73) 92 12/20/17 17:43 98.1 77 18 111/58 (75) 95 12/20/17 11:50 98.7 69 20 104/61 (75) 97 I/O 12/20/17 12/20/17 12/20/17 12/21/17 12/21/17 12/21/17 07:00 15:00 23:00 07:00 15:00 23:00 Intake Total 1100 ml 150 ml Balance 1100 ml 150 ml Intake IV Total 1100 ml 150 ml # Voids 1 # Bowel Movements 1 Result Diagram: 12/20/17 0540 12/20/17 0540 Imaging Last Impressions Abdomen/Pelvis CT 12/19/172227 Signed Impressions: CONCLUSION: Focal abscess is almost 3.1 cm in size adjacent to loops of bowel r ight lower quadrant with haziness of the adjacent mesenteric fat not present on the prior exam from 2016 and appears to be outside of the loops of bowel. Objective Remarks GENERAL: Well-developed, well-nourished patient in [facility]. CARDIOVASCULAR: Regular rate and rhythm. S1, S2 noted. No murmur appreciated. RESPIRATORY: No accessory muscle use. Clear to auscultation. Breath sounds equal bilaterally. GASTROINTESTINAL: Abdomen soft, non-tender, nondistended. Normoactive bowel sounds x4. MUSCULOSKELETAL: No obvious deformities. Extremities without clubbing, cyanosis , or edema. NEUROLOGICAL: Awake and alert. No obvious cranial nerve deficits. Motor grossly within normal limits. 5/5 muscle strength in bilateral upper and lower extremities. Normal speech. PSYCHIATRIC: Appropriate mood and affect; insight and judgment normal. A/P Problem List: (1) Abdominal pain ICD Code: R10.9 - Unspecified abdominal pain Status: Acute (2) Intra-abdominal abscess ICD Code: K65.1 - Peritoneal abscess Status: Acute (3) Hypokalemia ICD Code: E87.6 - Hypokalemia Status: Acute (4) Exacerbation of Crohn's disease ICD Code: K50.90 - Crohn's disease, unspecified, without complications Status: Acute Assessment and Plan Consult colorectal surgery this is a pleasant 42-year-old female patient with a known medical history of Crohn's disease and GERD and history of bowel resection who presented to the ED with complaints of abdominal pain. Abdominal focal abscess with associated abdominal pain History of Crohn's disease, untreated History of GERD CT abdomen showing focal mass 3.1 cm in the right upper quadrant adjacent to loops of bowel. Consult placed to colorectal surgeon as well as gastroenterology, input and recommendations pending. Colorectal surgeon will be playground monitor tomorrow, consult will be placed then. Will transfer to [facility] for possible percutaneous drainage by IR vs need for surgical intervention. Patient with leukocytosis, white blood cell 15.4 with mild left band shift. Placed on IV Zosyn and IV Flagyl. Will continue. Continue to monitor CBC. Patient has been afebrile. Was given IV Solu-Medrol in ED. Will place on scheduled steroids for now. Await GI further recs. Was also given 1 L NS bolus in ED. Ensure hydration, continue IV fluids. Ice chips for now. Await colorectal surgical consult input. Control pain, morphine IV available as needed. Compazine available for nausea as needed. Supportive care. GI consulted IR consulted for poss drainage of abscess Consult colorectal surgery Normochromic normocytic anemia Hemoglobin 10.8/hematocrit 32.2 on presentation. No signs of active bleeding. Denies any history of anemia. Patient complains of black stools. Will obtain Hemoccult. Iron studies ordered, pending. Follow CBC. Hypokalemia: Potassium 2.8 on presentation. Patient was given replacement. Potassium has resolved to 3.6. Magnesium normal. Continue to follow BMP. DVT prophylaxis: SCDs. Ambulation. Code Status Full code Discussed Condition With Patient, nurse Problem Qualifiers (1) Abdominal pain: Qualified Codes: R10.11 - Right upper quadrant pain Marisol Gabriel MD December 21, 2017 08:57
[2017-12-21] MEDS ORDERED: DIATRIZOATE MEGLUM/DIATRIZOATE SOD 120 ML BTL (for RAD DIAG) PO ONE ×2 (10:48→10:54)
--- NOTE | 2017-12-21 11:58 | RADRPT ---
EXAM DATE: 12/21/2017 10:42 AM EDT AGE/SEX: 42 years / Female INDICATIONS: Patient with Crohn's disease who presents with right lower quadrant pain. Right pelvic abscess seen on CT. Patient has a history of colonic and small bowel resection area. CLINICAL DATA: This is the patient's subsequent encounter. Patient reports that signs and symptoms h ave been present for 2 days and indicates a pain score of 5/10. MEDICAL/SURGICAL HISTORY: . Crohn's disease. Blood clot in chest many years ago. . Cholecystec aditi. Appendectomy. Colon resection and small bowel resection. COMPARISON: [facility], CT ABDOMEN & PELVIS W CONTRAST, 12/19/2017. . FLUORO TIME: 0.7 IMAGE COUNT: 17 CONTRAST: 2 cups of Gastroview. FINDINGS: The preliminary single wire saw operator films demonstrate surgical clips in the right upper quadrant consistent with pr ior cholecystectomy. There are anastomotic nadeem in the right lower abdomen. Gas and stool is noted segmentally: Area. The stomach is grossly unremarkable. The proximal small bowel is unremarkable. The patient is status post partial small bowel resection with anastomosis with the colon in the right lower quadrant. There is no evidence of obstruction contrast passes into the colon after approximately 15 minutes. No alexandr s extravasation is identified. CONCLUSION: Status post small bowel and colonic resection with no gross extravasation identified. If further eval uation is clinically indicated then a repeat pelvic CT with oral contrast would be the most sensitive detection method. Electronically signed by: Robin Gomez MD 12/21/2017 11:57 AM EDT
[2017-12-21 12:00] VITALS: BP 110/68; PULSE 61; RESP 17; TEMP 97.2; O2SAT 99
--- NOTE | 2017-12-21 13:19 | HHI.GIFU ---
Subjective Remarks This is a 42 yo F with PMH significant for Crohns disease, pt reports first diagnosed when she was approximately 25 years old. She was feeling ill for a long period of time, was admitted to the hospital and found to have a gangrenous gallbladder S/P cholecystectomy, continued to feel ill and underwent an appendectomy. Shortly after that patient was also found to have Crohns, states had a portion of her small intestine and colon resected when she was 27 years old. She states over the years she has been on a few different medications including Pentasa but found it difficult to comply with taking multiple pills a day. Her GI doctor started her on Humira approximately 7 years ago and she states good relief of symptoms but unfortunately lost her insurance after 7 months of treatment and was unable to continue. Her last colonoscopy was approximately 7 years ago and revealed inflammation at previous anastomosis site. She has recently not been on any medication for the Crohns, states she has been trying to manage her flares at home by not eating. Reports her last time taking steroids for a flare was approximately 3 years ago. Pt presented to the [facility] ER two days ago with complaints of right sided abdominal pain, states constant, described as sharp, worse with movement and walking. Reports pain began after she started a Z-pack for symptoms of an URI. Also complaining of diarrhea with fecal urgency. Has had fecal incontinence but none recently. Unsure of any blood in her stool because she states she does not check. Denies fever, chills. 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 Complaints of weight loss, unsure of how much, but states has been losing weight for quite some time and feels very fatigued. Unsure of family history significant for any GI issues. (Tania Layton) Objective Vitals I&O Vital Signs Date Time Temp Pulse Resp B/P (MAP) Pulse Ox O2 Delivery O2 Flow Rate FiO2 12/21/17 12:00 97.2 61 17 110/68 (82) 99 12/21/17 08:00 97.6 60 17 98/56 (70) 96 12/21/17 04:00 98.0 64 18 98/56 (70) 96 12/21/17 00:00 98.1 76 18 90/55 (67) 96 12/20/17 20:00 97.5 68 16 105/57 (73) 92 12/20/17 17:43 98.1 77 18 111/58 (75) 95 I/O 12/20/17 12/20/17 12/20/17 12/21/17 12/21/17 12/21/17 07:00 15:00 23:00 07:00 15:00 23:00 Intake Total 1100 ml 150 ml Balance 1100 ml 150 ml Intake IV Total 1100 ml 150 ml # Voids 1 # Bowel Movements 1 Imaging Last Impressions Small Bowel X-Ray 12/21/17 0000 Signed Impressions: CONCLUSION: Status post small bowel and colonic resection with no gross extravasation ident ified. If further evaluation is clinically indicated then a repeat pelvic CT wi th oral contrast would be the most sensitive detection method. Abdomen/Pelvis CT 12/19/178 Signed Impressions: CONCLUSION: Focal abscess is almost 3.1 cm in size adjacent to loops of bowel r ight lower quadrant with haziness of the adjacent mesenteric fat not present on the prior exam from 2015 and appears to be outside of the loops of bowel. Physical Exam HEENT: Normocephalic; atraumatic CHEST: Even/unlabored CARDIAC: RRR ABDOMEN: Soft, nondistended, right sided abdominal tenderness, bowel sounds active EXTREMITIES: No clubbing, cyanosis, or edema. SKIN: Normal; no rash; no jaundice. SITE PLANNER: Alert and oriented times three. (Tania Layton [facility]) Assessment and Plan Plan Assessment: - Crohns disease- Diagnosed at 25 years old, S/P partial small bowel and partial colon resection at 27 years old. Has been on multiple medications for Crohns over the years specifically mentioned Pentasa, found it difficult to comply with taking multiple pills a day. On Humira 6-7 years ago for 7 months with good relief of symptoms, unfortunately lost her insurance and was unable to continue treatment Last colonoscopy 7 years ago, states inflammation at the anastomosis site. CT abdomen and pelvis W IV contrast (12/19) Focal abscess is almost 3.1 cm in size adjacent to loops of bowel right lower quadrant with haziness of the adjacent mesenteric fat not present on the prior exam from 2015 and appears to be outside of the loops of bowel. Small bowel follow through --> Status post small bowel and colonic resection with no gross extravasation identified. If further evaluation is clinically indicated then a repeat pelvic CT with oral contrast would be the most sensitive detection method. - Diarrhea with fecal urgency and sometimes incontinence- states worse recently. Denies fever, chills. Unsure of any blood in her stool. 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 - Abdominal pain, right sided- began after taking a Z-pack for symptoms of a URI Plan: Colorectal consult C Diff stool Prednisone Flagyl and Zosyn Hep B and TB Further recommendations based on findings of above Pt has been seen and examined by myself and Dr. Concepcion and this note is written on his behalf (Tania Layton) Physician Comments Seen and examined with LEXY, agree with above. Does not want percutaneous drainage of abscess, wants it surgically removed. CRS consulted. Needs colonoscopy, timing to be determined. Discussed with Dr Moralez. Dr Mcgregor will follow. Santi wiggins (Maura Concepcion MD) Tania Layton December 21, 2017 13:19 Maura Concepcion MD December 21, 2017 14:03
[2017-12-21 16:00] VITALS: BP 117/57; PULSE 62; RESP 19; TEMP 98; O2SAT 97
--- NOTE | 2017-12-21 19:00 | MB ---
cc: Anju Martinez MD, Kathleen MD DATE: 12/21/2017 CHIEF COMPLAINT: Crohn's disease with possible intra-abdominal abscess. HISTORY OF PRESENT ILLNESS: The patient is a 42-year-old female who was diagnosed with Crohn's about 20 years ago or so. At that time, she had fairly severe disease and underwent a bowel resection with resection of the end of her small intestine and the beginning of her colon. She is not perfectly clear how much bowel they took out. She then had a fairly complicated postoperative course it sounds like with infections and the need for long-term antibiotics and then she had what looked like a clot at her port site, but eventually it got better and her care since then has not been good as she did not have insurance. She said it has been at least a 7-8 years since she has had any treatment for her Crohn's. She comes in today with problems with a couple week history of crampy abdominal pain, right greater than left, and continued diarrhea. She states that she has had diarrhea since she was diagnosed with Crohn's, approximately 8-10 loose stools daily with liquid stool, mucus and some dark stool but no definitive blood. She also feels that she has been more fatigued lately. She denies any fevers, chills, dysuria. She denies any nausea or vomiting. She did have a recent upper respiratory tract infection. PAST MEDICAL HISTORY: Crohn's disease, gastroesophageal reflux disease. The patient does report no history of diagnosed anal Crohn's or drainage in the anal area, but she does have an area that comes up every now and then drains and goes away. PAST SURGICAL HISTORY: 1. Bowel resection. 2. Cholecystectomy. 3. Appendectomy. 4. Port placement. ALLERGIES: NONE. MEDICATIONS: None on admission. REVIEW OF SYSTEMS: Negative for headache, chest pain, palpitations, difficulty breathing, shortness of breath, difficulty with mood or mentation, difficulty with ambulation. She is positive for fatigue and the above noted pertinent positives and negatives. PHYSICAL EXAMINATION: GENERAL: Reveals an alert female who appears comfortable. NEUROLOGIC: Grossly intact. SKIN: Warm and dry. CARDIOVASCULAR: Regular rate CHEST: Breathing is symmetric bilaterally, nonlabored. ABDOMEN: Soft, nondistended. She is mildly tender to deep palpation in the right mid abdomen just to the right of the umbilicus. There is no guarding or rebound. EXTREMITIES: Reveal no edema. RECTAL: External anal exam is essentially negative. LABORATORY DATA: Reveals a white count of 15.4, hemoglobin 10.8, platelets of 419. Chemistry from yesterday: Sodium of 140, potassium 3.6, chloride 107, bicarbonate is 24.4, BUN is 5, creatinine is 0.78 and glucose is 150. IMAGING STUDIES: CT scan reveals really no significant thickening of the bowel, although there is one small area of small bowel that is dilated and some possible haziness in the right lower quadrant. In addition, there is a 3.1 cm area of possible abscess collection. IMPRESSION AND PLAN: 1. History of Crohn's disease. 2. Possible intra-abdominal abscess. I will talk to the radiologist in the morning to see whether that can be drained. Obviously, we would like to avoid any further surgery in this patient who has already had a significant portion of her bowel removed to avoid short gut syndrome. I will leave management of her Crohn's disease up to the industrial eng. Thank you very much for your kind referral. MD JH Maurice/ , 06:29 PM , 06:59 PM
[2017-12-21 20:00] VITALS: BP 134/62; PULSE 60; RESP 16; TEMP 98.6; O2SAT 91
[2017-12-22] VITALS: BP 135/67; PULSE 62; RESP 16; TEMP 98.6; O2SAT 92
[2017-12-22] MEDS: PIPERACIL-TAZO 3.375 GM PREMIX 50 ML IV SCH ×3 (00:19→11:56)
[2017-12-22] MEDS: D5-1/2 NS + KCL 20 MEQ INJ 1,000 ML IV SCH ×2 (01:09→11:57)
[2017-12-22] MEDS: metroNIDAZOLE 500 MG INJ 100 ML IV SCH ×2 (01:09→07:54)
[2017-12-22 06:51] LABS: AUTOMATED NEUTROPHIL # 12.4 TH/MM3 (1.8-7.7); BASOPHIL # 0.1 TH/MM3 (0-0.2); BASOPHIL % 0.6 % (0.0-2.0); EOSINOPHIL % 0.3 % (0.0-4.0); HEMATOCRIT 28.5 % (35.0-46.0); HEMOGLOBIN 9.7 GM/DL (11.6-15.3); LYMPH % 15.9 % (9.0-44.0); LYMPHOCYTE # 2.6 TH/MM3 (1.0-4.8); MEAN CELL VOLUME 79.4 FL (80.0-100.0); MEAN CORPUSCULAR HEMOGLOBIN 27.1 PG (27.0-34.0); MEAN CORPUSCULAR HGB CONC 34.1 % (32.0-36.0); MEAN PLATELET VOLUME 8.1 FL (7.0-11.0); NEUT % 77.2 % (16.0-70.0); PLATELET COUNT 414 TH/MM3 (150-450); RED BLOOD COUNT 3.58 MIL/MM3 (4.00-5.30); RED CELL DISTRIBUTION WIDTH 14.6 % (11.6-17.2); WHITE BLOOD COUNT 16.1 TH/MM3 (4.0-11.0)
[2017-12-22] MEDS: SODIUM CHLORIDE 0.9% FLUSH 10 ML FLUSH IV FLUSH SCH (07:02)
[2017-12-22 07:36] LABS: BICARBONATE 25.9 MEQ/L (21.0-32.0); CALCIUM 7.5 MG/DL (8.5-10.1); CREATININE 0.86 MG/DL (0.50-1.00); MAGNESIUM 1.7 MG/DL (1.5-2.5)
[2017-12-22] MEDS: predniSONE 20 MG TAB PO SCH (07:53)
--- NOTE | 2017-12-22 07:53 | HHI.PR ---
Subjective Remarks Plan for evaluation by IR and colorectal surgeon for possible drainage of abscess. Patient has no pain at this time. No nausea vomiting. No diarrhea or constipation. No fever or chills. Feels improved.. Potassium is low replaced by IV as patient is nothing by mouth at this time. Objective Vitals Vital Signs Date Time Temp Pulse Resp B/P (MAP) Pulse Ox O2 Delivery O2 Flow Rate FiO2 12/22/17 00:00 98.6 62 16 135/67 (89) 92 12/21/17 20:00 98.6 60 16 134/62 (86) 91 12/21/17 16:00 98.0 62 19 117/57 (77) 97 12/21/17 12:00 97.2 61 17 110/68 (82) 99 12/21/17 08:00 97.6 60 17 98/56 (70) 96 I/O 12/21/17 12/21/17 12/21/17 12/22/17 12/22/17 12/22/17 07:00 15:00 23:00 07:00 15:00 23:00 Intake Total 150 ml 425 ml 1150 ml Balance 150 ml 425 ml 1150 ml Intake Oral 425 ml 0 ml IV Total 150 ml 1150 ml # Voids 1 4 3 # Bowel Movements 1 0 0 Result Diagram: 12/22/17 0553 12/20/17 0540 Imaging Last Impressions Small Bowel X-Ray 12/21/17 0000 Signed Impressions: CONCLUSION: Status post small bowel and colonic resection with no gross extravasation ident ified. If further evaluation is clinically indicated then a repeat pelvic CT wi th oral contrast would be the most sensitive detection method. Abdomen/Pelvis CT 12/19/17 2228 Signed Impressions: CONCLUSION: Focal abscess is almost 3.1 cm in size adjacent to loops of bowel r ight lower quadrant with haziness of the adjacent mesenteric fat not present on the prior exam from 2016 and appears to be outside of the loops of bowel. Objective Remarks GENERAL: Well-developed, well-nourished patient in NAD. CARDIOVASCULAR: Regular rate and rhythm. S1, S2 noted. No murmur appreciated. RESPIRATORY: No accessory muscle use. Clear to auscultation. Breath sounds equal bilaterally. GASTROINTESTINAL: Abdomen soft, non-tender, nondistended. Normoactive bowel sounds x4. MUSCULOSKELETAL: No obvious deformities. Extremities without clubbing, cyanosis , or edema. NEUROLOGICAL: Awake and alert. No obvious cranial nerve deficits. Motor grossly within normal limits. 5/5 muscle strength in bilateral upper and lower extremities. Normal speech. PSYCHIATRIC: Appropriate mood and affect; insight and judgment normal. A/P Problem List: (1) Abdominal pain ICD Code: R10.9 - Unspecified abdominal pain Status: Acute (2) Intra-abdominal abscess ICD Code: K65.1 - Peritoneal abscess Status: Acute (3) Hypokalemia ICD Code: E87.6 - Hypokalemia Status: Acute (4) Exacerbation of Crohn's disease ICD Code: K50.90 - Crohn's disease, unspecified, without complications Status: Acute Assessment and Plan This is a pleasant 42-year-old female patient with a known medical history of Crohn's disease and GERD and history of bowel resection who presented to the ED with complaints of abdominal pain. Abdominal pain with poss focal abscess with associated abdominal pain History of Crohn's disease, untreated History of GERD CT abdomen showing focal mass 3.1 cm in the right upper quadrant adjacent to loops of bowel. Consult placed to colorectal surgeon as well as gastroenterology, input and recommendations pending. Colorectal surgeon will be assistant manager airside operations tomorrow, consult will be placed then. Will transfer to [facility] for possible percutaneous drainage by IR vs need for surgical intervention. Patient with leukocytosis, white blood cell 15.4 with mild left band shift. Placed on IV Zosyn and IV Flagyl. Will continue. Continue to monitor CBC. Patient has been afebrile. Was given IV Solu-Medrol in ED. Will place on scheduled steroids for now. Await GI further recs. Was also given 1 L NS bolus in ED. Ensure hydration, continue IV fluids. Ice chips for now. Await colorectal surgical consult input. Control pain, morphine IV available as needed. Compazine available for nausea as needed. Supportive care. GI consulted IR consulted for poss drainage of abscess. Plan for CT guided abscess drain however per IR and also per CRS patient withposs small abscess no amenable for drainage or surgery. change abx to PO at DC to follow up as OP Consult colorectal surgery. Seen by Dr Martinez . Will try to avoid surgery to prevent short gut sdr. Normochromic normocytic anemia Hemoglobin 10.8/hematocrit 32.2 on presentation. No signs of active bleeding. Denies any history of anemia. Patient complains of black stools. Will obtain Hemoccult. Iron studies ordered, pending. Follow CBC. Hypokalemia: KCL replacement. Magnesium normal. DVT prophylaxis: SCDs. Ambulation. Code Status Full code Discussed Condition With Patient, nurse Cleared for DC . no need for surgery or IR drainage. to follow up as OP with PCP and consultants. Problem Qualifiers (1) Abdominal pain: Qualified Codes: R10.11 - Right upper quadrant pain Marisol Gabriel MD Dec 22, 2017 07:53
[2017-12-22 08:00] VITALS: BP 87/52; PULSE 64; RESP 16; TEMP 98.3; O2SAT 96
[2017-12-22] MEDS: POTASSIUM BICARBONATE 25 MEQ EFFERVESCENT TAB PO ONE ×2 (08:45→10:43)
[2017-12-22] MEDS ORDERED: NYSTATIN 100,000 UNIT/GM CREAM 15 GM TOPICAL SCH (09:00)
--- NOTE | 2017-12-22 09:33 | HHI.GIFU ---
Subjective Remarks Pt resting in bed, in no apparent distress NPO for drainage of abscess today Pt reports some continued right sided abdominal pain Denies BM today (Tania Layton) Objective Vitals I&O Vital Signs Date Time Temp Pulse Resp B/P (MAP) Pulse Ox O2 Delivery O2 Flow Rate FiO2 12/22/17 00:00 98.6 62 16 135/67 (89) 92 12/21/17 20:00 98.6 60 16 134/62 (86) 91 12/21/17 16:00 98.0 62 19 117/57 (77) 97 12/21/17 12:00 97.2 61 17 110/68 (82) 99 I/O 12/21/17 12/21/17 12/21/17 12/22/17 12/22/17 12/22/17 07:00 15:00 23:00 07:00 15:00 23:00 Intake Total 150 ml 425 ml 1150 ml Balance 150 ml 425 ml 1150 ml Intake Oral 425 ml 0 ml IV Total 150 ml 1150 ml # Voids 1 4 3 # Bowel Movements 1 0 0 Laboratory Laboratory Tests Test 12/21/17 15:42 12/22/17 05:53 Hepatitis A IgM Antibody NONREACTIVE Hepatitis B Surface Antigen NONREACTIVE Hepatitis B Core IgM Antibody NONREACTIVE Hepatitis C IgG Antibody NONREACTIVE White Blood Count 16.1 Red Blood Count 3.58 Hemoglobin 9.7 Hematocrit 28.5 Mean Corpuscular Volume 79.4 Mean Corpuscular Hemoglobin 27.1 Mean Corpuscular Hemoglobin Concent 34.1 Red Cell Distribution Width 14.6 Platelet Count 414 Mean Platelet Volume 8.1 Neutrophils (%) (Auto) 77.2 Lymphocytes (%) (Auto) 15.9 Monocytes (%) (Auto) 6.0 Eosinophils (%) (Auto) 0.3 Basophils (%) (Auto) 0.6 Neutrophils # (Auto) 12.4 Lymphocytes # (Auto) 2.6 Monocytes # (Auto) 1.0 Eosinophils # (Auto) 0.0 Basophils # (Auto) 0.1 CBC Comment DIFF FINAL Differential Comment Blood Urea Nitrogen 8 Creatinine 0.86 Random Glucose 113 Calcium Level 7.5 Magnesium Level 1.7 Sodium Level 144 Potassium Level 2.9 Chloride Level 108 Carbon Dioxide Level 25.9 Anion Gap 10 Estimat Glomerular Filtration Rate 72 Imaging Last Impressions Small Bowel X-Ray 12/21/17 0000 Signed Impressions: CONCLUSION: Status post small bowel and colonic resection with no gross extravasation ident ified. If further evaluation is clinically indicated then a repeat pelvic CT wi th oral contrast would be the most sensitive detection method. Abdomen/Pelvis CT 12/19/17 2228 Signed Impressions: CONCLUSION: Focal abscess is almost 3.1 cm in size adjacent to loops of bowel r ight lower quadrant with haziness of the adjacent mesenteric fat not present on the prior exam from 2015 and appears to be outside of the loops of bowel. Physical Exam HEENT: Normocephalic; atraumatic CHEST: Even/unlabored CARDIAC: RRR ABDOMEN: Soft, nondistended, right sided abdominal tenderness, bowel sounds active EXTREMITIES: No clubbing, cyanosis, or edema. SKIN: Normal; no rash; no jaundice. BIOGEOGRAPHER: Alert and oriented times three. (Tania Layton) Assessment and Plan Plan Assessment: - Crohns disease- Diagnosed at 25 years old, S/P partial small bowel and partial colon resection at 27 years old. Has been on multiple medications for Crohns over the years specifically mentioned Pentasa, found it difficult to comply with taking multiple pills a day. On Humira 6-7 years ago for 7 months with good relief of symptoms, unfortunately lost her insurance and was unable to continue treatment Last colonoscopy 7 years ago, states inflammation at the anastomosis site. CT abdomen and pelvis W IV contrast (12/19) Focal abscess is almost 3.1 cm in size adjacent to loops of bowel right lower quadrant with haziness of the adjacent mesenteric fat not present on the prior exam from 2015 and appears to be outside of the loops of bowel. Small bowel follow through --> Status post small bowel and colonic resection with no gross extravasation identified. If further evaluation is clinically indicated then a repeat pelvic CT with oral contrast would be the most sensitive detection method. - Diarrhea with fecal urgency and sometimes incontinence- states worse recently. Denies fever, chills. Unsure of any blood in her stool. 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 - Abdominal pain, right sided- began after taking a Z-pack for symptoms of a URI (12/22) Pt seen by colorectal surgery who has her NPO for CT assisted drainage of abscess today. Per CRS notes, surgery not recommended due to possibility of short gut syndrome with further bowel resection. Hep B and TB pending so that patient can be started on biologics outpatient. Previously on Humira, ? antibodies. C Diff pending. Plan: CT guided abscess drainage C Diff stool pending Prednisone Flagyl and Zosyn Hep B and TB Further recommendations based on findings of above Pt has been seen and examined by myself and Dr. Mcgregor and this note is written on his behalf (Tania Layton) Physician Comments Seen with Taras, plan as above. Will need to restart biological agents as out patient after completion of antibiotics. Will check Adalimumab antibodies if available. Further recommendations to follow. (Elvia Mcgregor MD) Tania Layton Dec 22, 2017 09:33 Elvia Mcgregor MD Dec 22, 2017 10:48
--- NOTE | 2017-12-22 10:16 | RADRPT ---
EXAM DATE: 12/22/2017 9:30 AM EDT AGE/SEX: 42 years / Female INDICATIONS: Evaluate for possible abscess drainage. COMPARISON: [facility], CT ABDOMEN & PELVIS W CONTRAST, 12/19/2017. . FINDINGS: Patient has history of Crohn's disease. Minimal inflammatory changes are seen in the right lower quadrant with a very small fluid collection adjacent to the bowel. This is likely evaluation of the patient's Crohn's disease. This time and would not recommend an attempted percutaneous aspiration or drainage. This would have s ignificant risk of fistulization if Crohn's disease is active. Recommendation is to perform MR enterography of the radiology evaluation of extensive Crohn's disease . Thank you for this consultation. Electronically signed by: Raymond Huddleston MD 12/22/2017 10:14 AM EDT
[2017-12-22] MEDS: POTASSIUM CHLOR 20 MEQ PREMIX 100 ML IV SCH ×2 (11:56→13:42)
[2017-12-22] MEDS ORDERED: METR-1 PO (14:57)
[2017-12-22] MEDS ORDERED: MICO2CRE43 VAGINAL (14:57)
[2017-12-22] MEDS ORDERED: PRED20 PO (14:57)
[2017-12-22] MEDS ORDERED: LEVA750T9 PO (14:57)
--- NOTE | 2017-12-22 14:58 | HHI.DS ---
Discharge Summary Admission Date December 20, 2017 at 00:46 Discharge Date: Dec 22, 2017 Admitting Diagnosis intra-abdominal abscess, Crohn's (1) Abdominal pain ICD Code: R10.9 - Unspecified abdominal pain Status: Acute (2) Intra-abdominal abscess ICD Code: K65.1 - Peritoneal abscess Status: Acute (3) Hypokalemia ICD Code: E87.6 - Hypokalemia Status: Acute (4) Exacerbation of Crohn's disease ICD Code: K50.90 - Crohn's disease, unspecified, without complications Status: Acute Procedures none Brief History - From Admission Written by Lanie Laughlin, acting as scribe for Dr. Obando on 12/20/17 at 10:41. This is a pleasant 42-year-old female patient with a known medical history of Crohn's disease and GERD and history of bowel resection who presented to the ED with complaints of abdominal pain. Patient states her symptoms started 7 days ago shortly after taking the first couple doses of a Z-Troy prescribed for an URI. Patient complaints of mid-epigastric abdominal pain that has progressively gotten worse over the past week. The abdominal pain is characteristically "pressure-like" and sharp in nature, worsens with movement and any activity, is intermittent and radiates to her right upper and lower quadrant as well as down to her groin area. She states that the IV morphine has been effective for her pain since presentation. The patient rated her pain a 6 out of 10 at its worst on pain scale. Denies any associated nausea, vomiting. She does have a history of Crohn's disease, states she has diarrhea and loose stools frequently. Also admits to black stools and recently more fatigued than normal. Denies any history of anemia. Denies any recent fever, chills, dysuria. She does state that her upper respiratory complaints have since improved after the Z -troy. Follows with a PCP at [facility]. Does not have a school services officer. Patient recently just obtained health insurance after lack of insurance for many years. Patient denies taking her Crohn's medications due to inability to afford them. Now that she has insurance she is following with her PCP. Last colonoscopy was 7 years ago and unaware of findings. CBC/BMP: 12/22/17 0553 12/22/17 0553 Significant Findings Laboratory Tests Test 12/19/17 22:40 12/20/17 05:40 12/21/17 15:42 12/22/17 05:53 White Blood Count 15.2 TH/MM3 (4.0-11.0) 15.4 TH/MM3 (4.0-11.0) 16.1 TH/MM3 (4.0-11.0) Hemoglobin 10.9 GM/DL (11.6-15.3) 10.8 GM/DL (11.6-15.3) 9.7 GM/DL (11.6-15.3) Hematocrit 32.7 % (35.0-46.0) 32.2 % (35.0-46.0) 28.5 % (35.0-46.0) Mean Corpuscular Hemoglobin 26.9 PG (27.0-34.0) Platelet Count 474 TH/MM3 (150-450) Basophils (%) (Auto) 4.7 % (0.0-2.0) Neutrophils # (Auto) 10.6 TH/MM3 (1.8-7.7) 14.4 TH/MM3 (1.8-7.7) 12.4 TH/MM3 (1.8-7.7) Basophils # (Auto) 0.7 TH/MM3 (0-0.2) Blood Urea Nitrogen 5 MG/DL (7-18) 5 MG/DL (7-18) Albumin 3.0 GM/DL (3.4-5.0) Potassium Level 2.8 MEQ/L (3.5-5.1) 2.9 MEQ/L (3.5-5.1) Estimat Glomerular Filtration Rate 66 ML/MIN (>89) 81 ML/MIN (>89) 72 ML/MIN (>89) Red Blood Count 3.98 MIL/MM3 (4.00-5.30) 3.58 MIL/MM3 (4.00-5.30) Neutrophils (%) (Auto) 93.1 % (16.0-70.0) 77.2 % (16.0-70.0) Lymphocytes (%) (Auto) 5.5 % (9.0-44.0) Lymphocytes # (Auto) 0.8 TH/MM3 (1.0-4.8) Random Glucose 150 MG/DL (74-106) 113 MG/DL (74-106) Calcium Level 8.1 MG/DL (8.5-10.1) 7.5 MG/DL (8.5-10.1) Iron Level 20 MCG/DL (50-170) Percent Iron Saturation 5.5 % (20-50) Mean Corpuscular Volume 79.4 FL (80.0-100.0) Monocytes # (Auto) 1.0 TH/MM3 (0-0.9) Chloride Level 108 MEQ/L (98-107) Imaging Last Impressions Small Bowel X-Ray 12/21/17 0000 Signed Impressions: CONCLUSION: Status post small bowel and colonic resection with no gross extravasation ident ified. If further evaluation is clinically indicated then a repeat pelvic CT wi th oral contrast would be the most sensitive detection method. Abdomen/Pelvis CT 12/19/17 2228 Signed Impressions: CONCLUSION: Focal abscess is almost 3.1 cm in size adjacent to loops of bowel r ight lower quadrant with haziness of the adjacent mesenteric fat not present on the prior exam from 2016 and appears to be outside of the loops of bowel. PE at Discharge GENERAL: Well-developed, well-nourished patient in NAD. CARDIOVASCULAR: Regular rate and rhythm. S1, S2 noted. No murmur appreciated. RESPIRATORY: No accessory muscle use. Clear to auscultation. Breath sounds equal bilaterally. GASTROINTESTINAL: Abdomen soft, non-tender, nondistended. Normoactive bowel sounds x4. MUSCULOSKELETAL: No obvious deformities. Extremities without clubbing, cyanosis , or edema. NEUROLOGICAL: Awake and alert. No obvious cranial nerve deficits. Motor grossly within normal limits. 5/5 muscle strength in bilateral upper and lower extremities. Normal speech. PSYCHIATRIC: Appropriate mood and affect; insight and judgment normal. Hospital Course This is a pleasant 42-year-old female patient with a known medical history of Crohn's disease and GERD and history of bowel resection who presented to the ED with complaints of abdominal pain. Abdominal pain with poss focal abscess with associated abdominal pain History of Crohn's disease, untreated History of GERD CT abdomen showing focal mass 3.1 cm in the right upper quadrant adjacent to loops of bowel. Consult placed to colorectal surgeon as well as gastroenterology, input and recommendations pending. Colorectal surgeon will be caisson worker tomorrow, consult will be placed then. Will transfer to [facility] for possible percutaneous drainage by IR vs need for surgical intervention. Patient with leukocytosis, white blood cell 15.4 with mild left band shift. Placed on IV Zosyn and IV Flagyl. Will continue. Continue to monitor CBC. Patient has been afebrile. Was given IV Solu-Medrol in ED. Will place on scheduled steroids for now. Await GI further recs. Was also given 1 L NS bolus in ED. Ensure hydration, continue IV fluids. Ice chips for now. Await colorectal surgical consult input. Control pain, morphine IV available as needed. Compazine available for nausea as needed. Supportive care. GI consulted IR consulted for poss drainage of abscess. Plan for CT guided abscess drain however per IR and also per CRS patient withposs small abscess no amenable for drainage or surgery. change abx to PO at DC to follow up as OP Consult colorectal surgery. Seen by Dr Martinez . Will try to avoid surgery to prevent short gut sdr. Normochromic normocytic anemia Hemoglobin 10.8/hematocrit 32.2 on presentation. No signs of active bleeding. Denies any history of anemia. Patient complains of black stools. Will obtain Hemoccult. Iron studies ordered, pending. Follow CBC. Hypokalemia: KCL replacement. Magnesium normal. Cleared for DC . no need for surgery or IR to drain per IR and Dr Martinez CRS. to follow up as OP with PCP and consultants. Patient improved , tolerates food. No diarrhea or abd pain. Pt Condition on Discharge: Stable Discharge Disposition: Discharge Home Discharge Time: > 30 minutes Discharge Instructions DIET: Follow Instructions for: As Tolerated, No Restrictions Activities you can perform: Regular-No Restrictions Follow up Referrals: Colorectal Surgery - 1 Week with Anju Martinez MD Gastroenterology - 2 Weeks PCP Follow-up - 2-3 Days New Medications: Levofloxacin (Levaquin) 750 Mg Tablet 750 MG PO DAILY for Infection, #10 TAB 0 Refills Metronidazole (Flagyl) 500 Mg Tab 500 MG PO TID for Infection for 10 Days, TAB 0 Refills Miconazole Nitrate Vaginal (Eq Miconazole 7 Day Treat) 2 % Cre 1 APPL VAGINAL HS for infection , #6 TUBE Prednisone (Prednisone) 20 Mg Tab 40 MG PO DAILY for crohns , #6 TAB Continued Medications: Ondansetron Odt (Zofran Odt) 4 Mg Tab 4 MG SL Q6HR PRN for Nausea/Vomiting, #10 TAB 0 Refills Marisol Gabriel MD Dec 22, 2017 14:58
[2017-12-22] MEDS ORDERED: MICONAZOLE NITRATE 2% VAG CREAM 45 GM VAGINAL SCH (21:00)
[2017-12-24 14:57] LABS: MITOGEN MINUS NIL RESULT 0.84 IU/mL; NIL RESULT 0.03 IU/mL; QUANTIFERON TB GOLD + RESULT Negative (Negative)
== END 2017-12-22 18:10 | disposition home or self-care (01) | DRG 372 ==
LOC: PHED 22:08 → PHEDA 12-20 00:46 → PH3B 12-20 01:15 → N07A 12-20 17:30
PROVIDERS: ADMIT Hospitalist; ATTEND Hospitalist
DX: K65.1 Peritoneal abscess (principal); K50.90 Crohn's disease, unspecified, without complications; E87.6 Hypokalemia; K21.9 Gastro-esophageal reflux disease without esophagitis; D64.9 Anemia, unspecified; F17.210 Nicotine dependence, cigarettes, uncomplicated; F12.90 Cannabis use, unspecified, uncomplicated
CPT/HCPCS: 74177; 74250; 80048; 80053; 80074; 83540; 83550; 83605; 83690; 83735; 84703; 85025; 86480; 87517; 96361; 96365; 96375; J2270; J2543; J2930; J3480; J7030; J7512; Q9963; Q9967

== ENCOUNTER 2017-12-29 18:25 | Inpatient (IN) | payer BC ==
[~2017-12-29] VITALS: Ht 170.2 cm; Wt 94.6 kg
[~2017-12-29 18:25] MED LIST changes: +LEVA750T9 PO; +METR-1 PO; +MICO2CRE43 VAGINAL; +PRED20 PO
[2017-12-29 18:38] VITALS: BP 112/66; PULSE 97; RESP 16; TEMP 98.9; O2SAT 96
[2017-12-29] MEDS ORDERED: FAMOTIDINE 20 MG/2 ML VIAL IV PUSH ONE (19:30)
[2017-12-29] MEDS ORDERED: MORPHINE SULFATE 4 MG/ML INJ IV PUSH ONE (19:30)
[2017-12-29] MEDS ORDERED: SODIUM CHLORIDE 0.9% FLUSH 10 ML FLUSH IV FLUSH PRN ×2 (19:30→22:15)
[2017-12-29 19:57] VITALS: O2SAT 97
[2017-12-29 20:16] LABS: AUTOMATED NEUTROPHIL # 17.7 TH/MM3 (1.8-7.7); BASOPHIL # 0.1 TH/MM3 (0-0.2); BASOPHIL % 0.4 % (0.0-2.0); EOSINOPHIL # 0.1 TH/MM3 (0-0.4); EOSINOPHIL % 0.5 % (0.0-4.0); HEMATOCRIT 36.6 % (35.0-46.0); HEMOGLOBIN 12.1 GM/DL (11.6-15.3); LYMPHOCYTE # 2.1 TH/MM3 (1.0-4.8); MEAN CORPUSCULAR HEMOGLOBIN 26.4 PG (27.0-34.0); MONO % 5.4 % (0.0-8.0); MONOCYTE # 1.1 TH/MM3 (0-0.9); NEUT % 83.7 % (16.0-70.0); PLATELET COUNT 492 TH/MM3 (150-450); RED BLOOD COUNT 4.58 MIL/MM3 (4.00-5.30); RED CELL DISTRIBUTION WIDTH 15.2 % (11.6-17.2); WHITE BLOOD COUNT 21.2 TH/MM3 (4.0-11.0)
[2017-12-29 20:22] LABS: BILIRUBIN, URINE NEG (NEG); BLOOD, URINE TRACE (NEG); GLUCOSE,URINE NEG (NEG); KETONE, URINE NEG (NEG); NITRITE,URINE NEG (NEG); PH, URINE 6.5 (5.0-8.5); SQUAMOUS EPITHELIAL CELL URINE 1 /hpf (0-5); URINE COLOR YELLOW (YELLW/STRAW); URINE LEUKOCYTE ESTERASE NEG (NEG)
[2017-12-29] MEDS ORDERED: PIPERACIL-TAZO 3.375 GM PREMIX 50 ML IV ONE (20:45)
[2017-12-29 20:46] LABS: ALBUMIN 2.7 GM/DL (3.4-5.0); ALT (GPT) 18 U/L (10-53); AST (GOT) 17 U/L (15-37); BICARBONATE 28.7 MEQ/L (21.0-32.0); BLOOD UREA NITROGEN 4 MG/DL (7-18); CALCIUM 8.4 MG/DL (8.5-10.1); CHLORIDE 99 MEQ/L (98-107); GLOMERULAR FILTRATION RATE 68 ML/MIN (>89); GLUCOSE,RANDOM 89 MG/DL (74-106); SODIUM (NA) 138 MEQ/L (136-145)
--- NOTE | 2017-12-29 20:47 | PD ---
HPI . abdominal pain Chief Complaint: GI Complaint Time Seen by Provider: 19:09 Travel History International Travel<30 days: No Contact w/Intl Traveler<30days: No Traveled to known affect area: No History of Present Illness HPI Patient has a history of Crohn's disease and she was here in our ER on December 18 and had a CAT scan that showed a right lower quadrant abscess measuring 3.6 cm she was put on Levaquin and Flagyl . Now out patient follow up with Dr Young repeat CT shows an increased size in the abscess now is 5.73.3 . She is in worsening pain and she has is not getting relief from PO antibiotics nor PO narcotics, Need IV antibiotics possible IR drainage , failed Outpt attempt at conversative treatment She has no fever but is having diarrhea and worsening pain not responding to p.o. outpatient treatment. It has been worsening over last week , pain becoming more diffuse in all of abdo PFSH Past Medical History Autoimmune Disease: No Cancer: No Cardiovascular Problems: No Diabetes: No Diminished Hearing: No Endocrine: No Gastrointestinal Disorders: Yes (CROHN'S) GERD: Yes Genitourinary: No Hiatal Hernia: No Immune Disorder: No Implanted Vascular Access Dvce: No Musculoskeletal: No Neurologic: No Psychiatric: No Reproductive: No Respiratory: No Immunizations Current: Yes Thyroid Disease: No Ulcer: No Influenza Vaccination: Yes ?: Not Past Surgical History Abdominal Surgery: Yes (CHOLEYSYSTECTOMY, APPENDECTOMY,) Appendectomy: Yes Cardiac Surgery: No Cholecystectomy: Yes Ear Surgery: No Endocrine Surgery: No Eye Surgery: No Genitourinary Surgery: Yes ( 2 FT SM BOWEL REDCTION, COLON RESECTION) Gynecologic Surgery: No Neurologic Surgery: No Oral Surgery: No Thoracic Surgery: Yes (BIOPSY) Other Surgery: Yes (BOWEL RESECTION FROM CROHN'S) Social History Alcohol Use: No Tobacco Use: Yes (1/2 PPD) Substance Use: Yes (Marijuana OCC) Allergies-Medications (Allergen,Severity, Reaction): Coded Allergies: No Known Allergies (Verified Adverse Reaction, Unknown, 12/29/17) Reported Meds & Prescriptions Reported Meds & Active Scripts Active Levaquin (Levofloxacin) 750 Mg Tablet 750 Mg PO DAILY Prednisone 20 Mg Tab 40 Mg PO DAILY Review of Systems Except as stated in HPI: all other systems reviewed are Neg Gastrointestinal: Positive: Diarrhea, Abdominal Pain Physical Exam Narrative GENERAL: pt is awake alert and non toxic non septic SKIN: Warm and dry. HEAD: Atraumatic. Normocephalic. EYES: Pupils equal and round. No scleral icterus. No injection or drainage. ENT: No nasal bleeding or discharge. Mucous membranes pink and moist. NECK: Trachea midline. No JVD. CARDIOVASCULAR: Regular rate and rhythm. RESPIRATORY: No accessory muscle use. Clear to auscultation. Breath sounds equal bilaterally. GASTROINTESTINAL: Abdomen severely tender to percussion . diffuse she stopped my hand exam after first palpation due to severe pain reaction. MUSCULOSKELETAL: Extremities without clubbing, cyanosis, or edema. No obvious deformities. NEUROLOGICAL: Awake and alert. No obvious cranial nerve deficits. Motor grossly within normal limits. Five out of 5 muscle strength in the arms and legs. Normal speech. PSYCHIATRIC: Appropriate mood and affect; insight and judgment normal. Data Data Last Documented VS Vital Signs Date Time Temp Pulse Resp B/P (MAP) Pulse Ox O2 Delivery O2 Flow Rate FiO2 12/29/17 19:57 97 Room Air 12/29/17 18:51 16 12/29/17 18:38 98.9 97 112/66 (81) Orders Orders Complete Blood Count With Diff (12/29/17 19:30) Comprehensive Metabolic Panel (12/29/17 19:30) Lipase (12/29/17 19:30) Lactic Acid (12/29/17 19:30) Urinalysis - C+S If Indicated (12/29/17 19:30) Iv Access Insert/Monitor (12/29/17 19:30) Ecg Monitoring (12/29/17 19:30) Oximetry (12/29/17 19:30) Morphine Inj (Morphine Inj) (12/29/17 19:30) Sodium Chloride 0.9% Flush (Ns Flush) (12/29/17 19:30) Famotidine Inj (Pepcid Inj) (12/29/17 19:30) Blood Culture (12/29/17 19:33) Oral Contrast - Adult (12/29/17 19:39) Piperacil-Tazo 3.375 Gm Premix (Zosyn 3. (12/29/17 20:45) Admit Order (Ed Use Only) (12/29/17 21:06) Labs Laboratory Tests Test 12/29/17 19:40 12/29/17 19:54 White Blood Count 21.2 TH/MM3 Red Blood Count 4.58 MIL/MM3 Hemoglobin 12.1 GM/DL Hematocrit 36.6 % Mean Corpuscular Volume 80.0 FL Mean Corpuscular Hemoglobin 26.4 PG Mean Corpuscular Hemoglobin Concent 33.0 % Red Cell Distribution Width 15.2 % Platelet Count 492 TH/MM3 Mean Platelet Volume 8.0 FL Neutrophils (%) (Auto) 83.7 % Lymphocytes (%) (Auto) 10.0 % Monocytes (%) (Auto) 5.4 % Eosinophils (%) (Auto) 0.5 % Basophils (%) (Auto) 0.4 % Neutrophils # (Auto) 17.7 TH/MM3 Lymphocytes # (Auto) 2.1 TH/MM3 Monocytes # (Auto) 1.1 TH/MM3 Eosinophils # (Auto) 0.1 TH/MM3 Basophils # (Auto) 0.1 TH/MM3 CBC Comment DIFF FINAL Differential Comment Erythrocyte Sedimentation Rate 68 mm/hr Blood Urea Nitrogen 4 MG/DL Creatinine 0.90 MG/DL Random Glucose 89 MG/DL Total Protein 7.3 GM/DL Albumin 2.7 GM/DL Calcium Level 8.4 MG/DL Alkaline Phosphatase 90 U/L Aspartate Amino Transf (AST/SGOT) 17 U/L Alanine Aminotransferase (ALT/SGPT) 18 U/L Total Bilirubin 0.3 MG/DL Sodium Level 138 MEQ/L Potassium Level 3.2 MEQ/L Chloride Level 99 MEQ/L Carbon Dioxide Level 28.7 MEQ/L Anion Gap 10 MEQ/L Estimat Glomerular Filtration Rate 68 ML/MIN Magnesium Level 1.7 MG/DL Lipase 79 U/L Urine Color YELLOW Urine Turbidity CLEAR Urine pH 6.5 Urine Specific [place] GREATER THAN 1.050 Urine Protein TRACE mg/dL Urine Glucose (UA) NEG mg/dL Urine Ketones NEG mg/dL Urine Occult Blood TRACE Urine Nitrite NEG Urine Bilirubin NEG Urine Urobilinogen LESS THAN 2.0 MG/DL Urine Leukocyte Esterase NEG Urine RBC 1 /hpf Urine WBC LESS THAN 1 /hpf Urine Squamous Epithelial Cells 1 /hpf Microscopic Urinalysis Comment CULT NOT INDICATED Lactic Acid Level 1.7 mmol/L MDM Medical Decision Making Medical Screen Exam Complete: Yes Emergency Medical Condition: Yes Medical Record Reviewed: Yes Differential Diagnosis crohns exacerbation , vs peritonitis vs abscess vs ruptured abscess with peritoneal signs vs colonic perforation vs gastroenteritis , Narrative Course CT done at our outpt facility I was able to access this old CT from earlier in the day which shows the abscess growing in size inspite of Levaquin PO and Flagyl PO pt has little pain relief from Hydrocodone , worsening diarrhea and pain . I give zosyn and call [facility] for admission and GI and IR consults Morphine given as well . Pt stable afebrile WBC very elevated 21 .. IV NS fluid NPO admission Diagnosis Primary Impression: Intra-abdominal abscess Admitting Information Admitting Physician Requests: Admit Anup Haney MD Dec 29, 2017 20:47
[2017-12-29 20:49] LABS: ALKALINE PHOSPHATASE 90 U/L (45-117); TOTAL BILIRUBIN ADULT 0.3 MG/DL (0.2-1.0); TOTAL PROTEIN 7.3 GM/DL (6.4-8.2)
[2017-12-29 21:41] VITALS: O2SAT 97
--- NOTE | 2017-12-29 21:42 | HHI.HP ---
HPI Service Family Medicine Primary Care Physician Unknown Admission Diagnosis ABDOMINAL ABSCESS Diagnoses: International Travel<30 Days: No Contact w/Intl Traveler<30days: No Known Affected Area: No History of Present Illness 42year-old female with known medical history of Crohn's disease and hx of bowel resection presents to the ED with worsening intraabdominal abscess. Patient was recently discharged on 12/22/17 for intraabdominal abscess measuring 3.[address] abdomen. Patient was treated with IV Zosyn and Flagyl during hospital stay. GI , IR, and colorectal surgery were consulted at that time. Per IR and CRS, small abscess was not amenable drainage or surgery. Patient was discharged with Levaquin and Flagyl and was to follow-up with GI. She was also discharged with a prescription for prednisone, but reports that she has not taken in the past 2 days due to problems getting refills. she states that she had a CT scan at [facility] ordered by her trading assistant, , today. CT scan of the abdomen demonstrates abscess increasing in size to 5.73.3 per ED report. Patient was then told to report to the ED for treatment. Patient states that she has had constant, sharp, right lower quadrant pain radiating to her groin. She states that her abdominal pain has worsened by 85%. She also states that she has had subjective fevers and diaphoresis. She endorses poor appetite and has been only able to eat oatmeal and jello. She is able to hold down liquids. She endorses nausea but no vomiting. She also endorses chronic diarrhea that is intermittently black, tarry vs mucosy and yellow. She denies dysuria, SOB, and CP. Last colonoscopy was 7 years ago per chart review, unaware of findings. PCP at [facility]. (Adrianna Nieto MD R1) Review of Systems Constitutional: COMPLAINS OF: Weight loss, DENIES: Fever, Chills, Change in appetite Ears, nose, mouth, throat: DENIES: Running Nose Respiratory: DENIES: Cough, Shortness of breath Cardiovascular: DENIES: Chest pain Gastrointestinal: COMPLAINS OF: Abdominal pain, Diarrhea, Nausea, DENIES: Vomiting Genitourinary: DENIES: Dysuria Musculoskeletal: DENIES: Muscle aches Integumentary: DENIES: Rash Neurologic: COMPLAINS OF: Headache (Adrianna Nieto MD R1) Past Family Social History Past Medical History Crohn's disease GERD Ovarian cyst Past Surgical History History of bowel resection secondary to Crohn's, 11 years ago. Cholecystectomy Appendectomy Cyst in center of chest removed Port placement for long-term antibiotics, history of blood clot in port Reported Medications Reported Meds & Active Scripts Active Levaquin (Levofloxacin) 750 Mg Tablet 750 Mg PO DAILY Prednisone 20 Mg Tab 40 Mg PO DAILY (Adrianna Nieto MD R1) Allergies: Coded Allergies: No Known Allergies (Verified Adverse Reaction, Unknown, 12/29/17) Family History Paternal medical history significant for diabetes. Mother had a history of IBS. Social History Lives with mom. 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 Admits to occasional marijuana use-twice/day for appetite stimulation Denies any alcohol use. (Adrianna Nieto MD R1) Physical Exam Vital Signs Vital Signs Date Time Temp Pulse Resp B/P (MAP) Pulse Ox O2 Delivery O2 Flow Rate FiO2 12/29/17 21:41 97 12/29/17 19:57 97 Room Air 12/29/17 18:51 16 12/29/17 18:38 98.9 97 16 112/66 (81) 96 Physical Exam GENERAL: This is a well-nourished, well-developed patient, in no apparent distress. SKIN: No rashes, ecchymoses or lesions. Cool and dry. HEAD: Atraumatic. Normocephalic. No temporal or scalp tenderness. EYES: Pupils equal round and reactive. Extraocular motions intact. No scleral icterus. No injection or drainage. ENT: Nose without bleeding, purulent drainage or septal hematoma. Throat without erythema, tonsillar hypertrophy or exudate. Uvula midline. Airway patent. NECK: Trachea midline. No JVD or lymphadenopathy. Supple, nontender, no meningeal signs. CARDIOVASCULAR: Regular rate and rhythm without murmurs, gallops, or rubs. RESPIRATORY: Clear to auscultation. Breath sounds equal bilaterally. No wheezes , rales, or rhonchi. GASTROINTESTINAL: Abdomen soft, non-distended, moderately tender to palpation, especially RUQ near the umbilicus, mild guarding, positive bowel sounds, no masses noted MUSCULOSKELETAL: Extremities without clubbing, cyanosis, or edema. No joint tenderness, effusion, or edema noted. No calf tenderness. Negative Homans sign bilaterally. NEUROLOGICAL: Awake and alert. Oriented x3 Laboratory Laboratory Tests Test 12/29/17 19:40 12/29/17 19:54 White Blood Count 21.2 Red Blood Count 4.58 Hemoglobin 12.1 Hematocrit 36.6 Mean Corpuscular Volume 80.0 Mean Corpuscular Hemoglobin 26.4 Mean Corpuscular Hemoglobin Concent 33.0 Red Cell Distribution Width 15.2 Platelet Count 492 Mean Platelet Volume 8.0 Neutrophils (%) (Auto) 83.7 Lymphocytes (%) (Auto) 10.0 Monocytes (%) (Auto) 5.4 Eosinophils (%) (Auto) 0.5 Basophils (%) (Auto) 0.4 Neutrophils # (Auto) 17.7 Lymphocytes # (Auto) 2.1 Monocytes # (Auto) 1.1 Eosinophils # (Auto) 0.1 Basophils # (Auto) 0.1 CBC Comment DIFF FINAL Differential Comment Blood Urea Nitrogen 4 Creatinine 0.90 Random Glucose 89 Total Protein 7.3 Albumin 2.7 Calcium Level 8.4 Alkaline Phosphatase 90 Aspartate Amino Transf (AST/SGOT) 17 Alanine Aminotransferase (ALT/SGPT) 18 Total Bilirubin 0.3 Sodium Level 138 Potassium Level 3.2 Chloride Level 99 Carbon Dioxide Level 28.7 Anion Gap 10 Estimat Glomerular Filtration Rate 68 Lipase 79 Urine Color YELLOW Urine Turbidity CLEAR Urine pH 6.5 Urine Specific [place] GREATER THAN 1.050 Urine Protein TRACE Urine Glucose (UA) NEG Urine Ketones NEG Urine Occult Blood TRACE Urine Nitrite NEG Urine Bilirubin NEG Urine Urobilinogen LESS THAN 2.0 Urine Leukocyte Esterase NEG Urine RBC 1 Urine WBC LESS THAN 1 Urine Squamous Epithelial Cells 1 Microscopic Urinalysis Comment CULT NOT INDICATED Lactic Acid Level 1.7 Date/Time Source Procedure Growth Status 12/29/17 19:55 Blood Peripheral Aerobic Blood Culture Pending Received 12/29/17 19:55 Blood Peripheral Anaerobic Blood Culture Pending Received (Adrianna Nieto MD R1) Result Diagram: 12/29/17193912/29/171939 Septic Shock Reassessment Septic shock perfusion: reassessment completed (Adrianna Nieto MD R1) Caprini VTE Risk Assessment Caprini VTE Risk Assessment: No/Low Risk (score <= 1) Caprini Risk Assessment Model Point Value = 1 Point Value = 2 Point Value = 3 Point Value = 5 Age 41-60 Minor surgery BMI > 25 kg/m2 Swollen legs Varicose veins or History of unexplained or recurrent spontaneous Oral contraceptives or hormone replacement Sepsis (< 1 month) Serious lung disease, including pneumonia (< 1 month) Abnormal pulmonary function Acute myocardial infarction Congestive heart failure (< 1 month) History of inflammatory bowel disease Medical patient at bed rest Age 61-74 Arthroscopic surgery Major open surgery (> 45 min) Laparoscopic surgery (> 45 min) Malignancy Confined to bed (> 72 hours) Immobilizing plaster cast Central venous access Age >= 75 History of VTE Family history of VTE Factor V Leiden Prothrombin [id number] Lupus anticoagulant Anticardiolipin antibodies Elevated serum homocysteine Heparin-induced thrombocytopenia Other congenital or acquired thrombophilia Stroke (< 1 month) Elective arthroplasty Hip, pelvis, or leg fracture Acute spinal cord injury (< 1 month) Prophylaxis Regimen Total Risk Factor Score Risk Level Prophylaxis Regimen 0-1 Low Early ambulation 2 Moderate Order ONE of the following: *Sequential Compression Device (SCD) *Heparin 5000 units SQ BID 3-4 Higher Order ONE of the following medications: *Heparin 5000 units SQ TID *Enoxaparin/Lovenox 40 mg SQ daily (WT < 150 kg, CrCl > 30 mL/min) *Enoxaparin/Lovenox 30 mg SQ daily (WT < 150 kg, CrCl > 10-29 mL/min) *Enoxaparin/Lovenox 30 mg SQ BID (WT < 150 kg, CrCl > 30 mL/min) AND/OR *Sequential Compression Device (SCD) 5 or more Highest Order ONE of the following medications: *Heparin 5000 units SQ TID (Preferred with Epidurals) *Enoxaparin/Lovenox 40 mg SQ daily (WT < 150 kg, CrCl > 30 mL/min) *Enoxaparin/Lovenox 30 mg SQ daily (WT < 150 kg, CrCl > 10-29 mL/min) *Enoxaparin/Lovenox 30 mg SQ BID (WT < 150 kg, CrCl > 30 mL/min) AND *Sequential Compression Device (SCD) (Adrianna Nieto MD R1) Assessment and Plan Assessment and Plan 42 yr old F with hx of Crohn's Disease admitted for sepsis secondary to worsening intraabdominal abscess. Code Status Full Code Discussed Condition With Dr. Arita (Adrianna Nieto MD R1) Problem List: (1) Sepsis ICD Codes: A41.9 - Sepsis, unspecified organism Status: Resolved Plan: Patient meets sepsis criteria due to tachycardia and leukocytosis with known source of infection. See plan below (2) Intra-abdominal abscess ICD Codes: K65.1 - Peritoneal abscess Plan: Per ED report, CT scan port [place] [facility] showing an increase in size of abdominal abscess measuring 5.73.3. CT scan on 12-18-17 demonstrates right lower quadrant abscess measuring 3.6 cm. Per IR and CRS, small abscess was not amenable drainage or surgery. Leukocytosis of 21.2 Lactic acid 1.7 Blood cultures x2 collected and pending Patient received 1x dose of Zosyn in the ED Continue Zosyn 4.5 g IV every 6 hours Continue lactic acid protocol N.p.o. after midnight NS + 20meq KCl 190mls/hr-maintenance rate GI and colorectal consulted, appreciate recommendations Pain Control: [place] 5mg 1 tab PRN pain 3-5 [place] 7.5 mg 1 tab PRN pain 6-10 Morphine 4mg IV q3h for breakthrough pain (3) Crohns disease ICD Codes: K50.90 - Crohn's disease, unspecified, without complications Plan: Continue prednisone 40 mg p.o. daily Continue famotidine 20 mg IV push every 12h Hemoccult pending Baseline EKG pending GI consulted, appreciate recommendations (4) Hypokalemia ICD Codes: E87.6 - Hypokalemia Status: Resolved Plan: Potassium of 3.2 on admission Replace with KCL eff Mg pending 20 mEq potassium added to fluids Continue to trend (5) Nutrition, metabolism, and development symptoms ICD Codes: R63.8 - Other symptoms and signs concerning food and fluid intake Plan: Diet: N.p.o. after midnight Fluids: NS + KCl 190mls/hr Vitals every 4 hours Monitor I's and O's DVT ppx: SCDs, will start on Subcutaneous heparin once Hemoccult negative Case Management and PT consulted (Adrianna Nieto MD R1) Problem List: (1) Sepsis ICD Codes: A41.9 - Sepsis, unspecified organism Status: Resolved Plan: Patient meets sepsis criteria due to tachycardia and leukocytosis with known source of infection. See plan below (2) Intra-abdominal abscess ICD Codes: K65.1 - Peritoneal abscess Plan: Per ED report, CT scan [facility] [place] [facility] showing an increase in size of abdominal abscess measuring 5.73.3. CT scan on 12-18-17 demonstrates right lower quadrant abscess measuring 3.6 cm. Per IR and CRS, small abscess was not amenable drainage or surgery. Leukocytosis of 21.2 Lactic acid 1.7 Blood cultures x2 collected and pending Patient received 1x dose of Zosyn in the ED Continue Zosyn 4.5 g IV every 6 hours Continue lactic acid protocol N.p.o. after midnight NS + 20meq KCl 190mls/hr-maintenance rate GI and colorectal consulted, appreciate recommendations Pain Control: [place] 5mg 1 tab PRN pain 3-5 [place] 7.5 mg 1 tab PRN pain 6-10 Morphine 4mg IV q3h for breakthrough pain (3) Crohns disease ICD Codes: K50.90 - Crohn's disease, unspecified, without complications Plan: Continue prednisone 40 mg p.o. daily Continue famotidine 20 mg IV push every 12h Hemoccult pending Baseline EKG pending GI consulted, appreciate recommendations (4) Hypokalemia ICD Codes: E87.6 - Hypokalemia Status: Resolved Plan: Potassium of 3.2 on admission Replace with KCL eff Mg pending 20 mEq potassium added to fluids Continue to trend (5) Nutrition, metabolism, and development symptoms ICD Codes: R63.8 - Other symptoms and signs concerning food and fluid intake Plan: Diet: N.p.o. after midnight Fluids: NS + KCl 190mls/hr Vitals every 4 hours Monitor I's and O's DVT ppx: SCDs, will start on Subcutaneous heparin once Hemoccult negative Case Management and PT consulted See the residents documentation for details. I saw and evaluated the patient regarding the alba portions of this evaluation and agree with the residents findings and plans as written. Parts of this note were created using [employer] voice recognition software program. While efforts were made to correct any mistakes made by this software, some mistakes, errors, and omissions may remain in the final note that were not caught when the note was originally created. Plan of care was discussed and agreed upon with the patient as specifically documented in the above note. An opportunity to ask questions with explanation was provided. Patient voiced understanding on all information reviewed and discussed. (Jarod Plascencia MD) Physician Certification 2 Midnight Certification Type: Admission for Inpatient Services Order for Inpatient Services The services are ordered in accordance with Medicare regulations or non- Medicare payer requirements, as applicable. In the case of services not specified as inpatient-only, they are appropriately provided as inpatient services in accordance with the 2-midnight benchmark. Estimated LOS (days): 2 2 days is the estimated time the patient will need to remain in the hospital, assuming treatment plan goals are met and no additional complications. Post-Hospital Plan: Home (Adrianna Nieto MD R1) Adrianna Nieto MD R1 Dec 29, 2017 21:42 Jarod Plascencia MD Jan 01, 2018 11:18
[2017-12-29] MEDS ORDERED: SODIUM CHLOR 0.9% 1000 ML INJ 1,000 ML IV SCH (22:13)
[2017-12-29] MEDS ORDERED: POTASSIUM CHLORIDE 20 MEQ CONTROLLED RELEASE TAB PO ONE (22:15)
[2017-12-29] MEDS ORDERED: NALOXONE HCL 0.4 MG/ML AMP IV PUSH PRN ×2 (22:15→23:00)
[2017-12-29] MEDS ORDERED: ONDANSETRON ODT 4 MG TAB PO PRN (22:15)
[2017-12-29] MEDS ORDERED: ACETAMINOPHEN/HYDROcodone 325 MG/5 MG TAB PO PRN (23:00)
[2017-12-29] MEDS ORDERED: CIPROFLOXACIN 400 MG PREMIX 200 ML IV SCH (23:00)
[2017-12-29] MEDS ORDERED: POTASSIUM CHLORIDE 25 MEQ EFFERVESCENT TAB PO ONE (23:15)
[2017-12-29] MEDS: SODIUM CHLORIDE 0.9% FLUSH 10 ML FLUSH IV FLUSH SCH (23:35)
[2017-12-29] MEDS: NS + KCL 20 MEQ INJ 1,000 ML IV SCH (23:37)
[2017-12-29] MEDS: predniSONE 20 MG TAB PO SCH (23:38)
[2017-12-29] MEDS: ACETAMINOPHEN/HYDROcodone 325 MG/7.5 MG TAB PO PRN (23:38)
[2017-12-30] VITALS: BP 94/56; PULSE 82; RESP 20; TEMP 98.6; O2SAT 95
[2017-12-30] MEDS ORDERED: metroNIDAZOLE 500 MG INJ 100 ML IV SCH
[2017-12-30 00:38] LABS: INTERNATIONAL NORMALIZED RATIO 1.1 RATIO; PROTHROMBIN TIME - PATIENT 10.8 SEC (9.8-11.6)
[2017-12-30 00:44] LABS: LACTIC ACID SEPSIS PROTOCOL 2.7 mmol/L (0.4-2.0)
[2017-12-30] MEDS: PIPERACIL-TAZO 4.5 GM PREMIX 100 ML IV SCH ×4 (02:18→20:22)
[2017-12-30] MEDS: MORPHINE SULFATE 4 MG/ML INJ IV PUSH PRN (02:18)
[2017-12-30] MEDS ORDERED: PIPERACIL-TAZO 3.375 GM PREMIX 50 ML IV SCH (03:00)
[2017-12-30 04:01] LABS: AUTOMATED NEUTROPHIL # 17.5 TH/MM3 (1.8-7.7); BASOPHIL # 0.1 TH/MM3 (0-0.2); BASOPHIL % 0.3 % (0.0-2.0); EOSINOPHIL % 0.1 % (0.0-4.0); HEMATOCRIT 33.5 % (35.0-46.0); HEMOGLOBIN 11.4 GM/DL (11.6-15.3); LYMPH % 4.8 % (9.0-44.0); LYMPHOCYTE # 0.9 TH/MM3 (1.0-4.8); MEAN CORPUSCULAR HEMOGLOBIN 27.1 PG (27.0-34.0); MEAN CORPUSCULAR HGB CONC 33.9 % (32.0-36.0); MEAN PLATELET VOLUME 7.6 FL (7.0-11.0); MONO % 1.6 % (0.0-8.0); MONOCYTE # 0.3 TH/MM3 (0-0.9); NEUT % 93.2 % (16.0-70.0); PLATELET COUNT 409 TH/MM3 (150-450); RED BLOOD COUNT 4.19 MIL/MM3 (4.00-5.30); RED CELL DISTRIBUTION WIDTH 15.2 % (11.6-17.2); WHITE BLOOD COUNT 18.8 TH/MM3 (4.0-11.0)
[2017-12-30 04:28] LABS: BICARBONATE 28.1 MEQ/L (21.0-32.0); CREATININE 0.81 MG/DL (0.50-1.00)
[2017-12-30] MEDS: NS + KCL 20 MEQ INJ 1,000 ML IV SCH ×4 (05:01→20:22)
[2017-12-30 08:00] VITALS: BP 102/59; PULSE 64; RESP 16; TEMP 97.3; O2SAT 97
[2017-12-30] MEDS ORDERED: SODIUM CHLORIDE 0.9% FLUSH 10 ML FLUSH IV FLUSH SCH (09:00)
[2017-12-30] MEDS: predniSONE 20 MG TAB PO SCH (09:37)
[2017-12-30] MEDS: FAMOTIDINE 20 MG/2 ML VIAL IV PUSH SCH ×2 (09:37→20:22)
[2017-12-30] MEDS: SODIUM CHLORIDE 0.9% FLUSH 10 ML FLUSH IV FLUSH SCH ×2 (09:38→20:22)
--- NOTE | 2017-12-30 11:58 | HHI.FPPN ---
Subjective Remarks Patient was seen and evaluated this morning. She feels better overall, which she attributes to passing gas. She reports hot flashes but denies fever. She continues to experience abdominal pain, unchanged from day of admission. Patient denies chest pain, heart palpitations, shortness of breath, nausea/ vomiting, diarrhea and constipation. All questions were answered. (Delmy Benson MD R1) Objective Vitals Vital Signs Date Time Temp Pulse Resp B/P (MAP) Pulse Ox O2 Delivery O2 Flow Rate FiO2 12/30/17 08:00 97.3 64 16 102/59 (73) 97 12/30/17 00:00 98.6 82 20 94/56 (69) 95 12/29/17 21:41 97 12/29/17 19:57 97 Room Air 12/29/17 18:51 16 12/29/17 18:38 98.9 97 16 112/66 (81) 96 I/O 12/29/17 12/29/17 12/29/17 12/30/17 12/30/17 12/30/17 07:00 15:00 23:00 07:00 15:00 23:00 Intake Total 50 ml 1100 ml Balance 50 ml 1100 ml Intake IV Total 50 ml 1100 ml (Delmy Benson MD R1) Result Diagram: 12/30/17 0352 12/30/17 0352 Objective Remarks GENERAL: This is a well-nourished, well-developed patient, in no apparent distress. SKIN: No rashes, ecchymoses or lesions. Cool and dry. HEAD: Atraumatic. Normocephalic. No temporal or scalp tenderness. EYES: Pupils equal round and reactive. Extraocular motions intact. No scleral icterus. No injection or drainage. ENT: Nose without bleeding, purulent drainage or septal hematoma. Airway patent. NECK: Trachea midline. No JVD or lymphadenopathy. Supple, nontender, no meningeal signs. CARDIOVASCULAR: Regular rate and rhythm without murmurs, gallops, or rubs. RESPIRATORY: Clear to auscultation. Breath sounds equal bilaterally. No wheezes , rales, or rhonchi. GASTROINTESTINAL: Abdomen soft, non-distended, moderately tender to palpation, especially RUQ near the umbilicus, mild guarding, positive bowel sounds, no masses noted MUSCULOSKELETAL: Extremities without clubbing, cyanosis, or edema. No calf tenderness. NEUROLOGICAL: Awake and alert. Oriented x3 Medications and IVs Current Medications Medications (Trade) Dose Ordered Sig/Kindra Route Start Time Stop Time Status Last Admin (NS Flush) 2 ml UNSCH PRN IV FLUSH 12/29/17 22:15 (NS Flush) 2 ml BID IV FLUSH 12/29/17 22:15 12/30/17 09:38 (Zofran Odt) 4 mg Q6H PRN PO 12/29/17 22:15 (Narcan Inj) 0.4 mg UNSCH PRN IV PUSH 12/29/17 22:15 (Pepcid Inj) 20 mg Q12H IV PUSH 12/30/17 08:00 12/30/17 09:37 (Deltasone) 40 mg DAILY PO 12/29/17 22:45 12/30/17 09:37 (Madison 5-325 Mg) 1 tab Q4H PRN PO 12/29/17 23:00 (Mad[place] 7.5-325 Mg) 1 tab Q4H PRN PO 12/29/17 23:00 12/29/17 23:38 (Morphine Inj) 4 mg Q3H PRN IV PUSH 12/29/17 23:00 12/30/17 02:18 Piperacillin Sod/ Tazobactam Sod 100 ml @ 200 mls/hr Q6H IV 12/30/17 02:50 12/30/17 09:37 Potassium Chloride/Sodium Chloride 1,000 ml @ 190 mls/hr Q5H16M IV 12/29/17 23:15 12/30/17 09:38 (Delmy Benson MD R1) Urinary Catheter: No (Delmy Benson MD R1) Vascular Central Line Catheter: No (Delmy Benson MD R1) A/P Assessment and Plan Patient is a 42 year old female with a past medical history significant of Crohn 's Disease, admitted for sepsis secondary to worsening intraabdominal abscess. Discharge Planning Pending clinical improvement. (Delmy Benson MD R1) Problem List: (1) Sepsis ICD Codes: A41.9 - Sepsis, unspecified organism Status: Resolved Plan: On admission, patient met sepsis criteria due to tachycardia and leukocytosis with known source of infection. * See Plan below. (2) Intra-abdominal abscess ICD Codes: K65.1 - Peritoneal abscess Plan: Per ED report, patient had CT scan done at [facility] showing a growing abdominal abscess measuring 5.73.3. CT scan on 12-18-17 demonstrated right lower quadrant abscess, measuring 3.1 cm. Per IR and CRS, small abscess was not amenable to drainage or surgery. Labs on admission: * WBC 21.2. * Lactic acid 1.7 -> 2.7 -> 1.2. Labs 12/30: * WBC 18.8. Microbiology: * Blood cultures x2: no growth to date. Medications: * Patient received 1x dose of Zosyn in the ED. * Continue Zosyn 4.5 g IV q6hr. * Tylenol 650mg PO PRN pain 1-2. * [place] 5mg PO q4hr PRN pain 3-5. * [place] 7.5 mg PO q4hr PRN pain 6-10. * Morphine 4mg IV q3h PRN for breakthrough pain. Consults: * Colorectal surgery - not available until 01/01. * General surgery. Awaiting recommendations. * ID. Awaiting recommendations. (3) Crohns disease ICD Codes: K50.90 - Crohn's disease, unspecified, without complications Plan: Patient with history of Crohn's disease. She is currently not on maintenance medication. Microbiology: * Hemoccult negative. Medications: * Continue prednisone 40 mg PO daily. * Continue famotidine 20 mg IV push q12h. Consults: * GI. Awaiting recommendations. (4) Hypokalemia ICD Codes: E87.6 - Hypokalemia Status: Resolved Plan: On admission, Potassium of 3.2. Medications: * NS + KCl 20mew at 190ml/hr. * K-Lyte Cl Eff 25mew PO ONCE. (5) Nutrition, metabolism, and development symptoms ICD Codes: R63.8 - Other symptoms and signs concerning food and fluid intake Plan: Diet: * NPO after midnight in case of procedure today. Fluids: * NS + 20meq KCl 190mls/hr Electrolytes: * Monitor and replete as necessary. DVT prophylaxis: * Heparin 5,000 units SQ q8hr. (Delmy Benson MD R1) Problem List: (1) Sepsis ICD Codes: A41.9 - Sepsis, unspecified organism Status: Resolved Plan: On admission, patient met sepsis criteria due to tachycardia and leukocytosis with known source of infection. * See Plan below. (2) Intra-abdominal abscess ICD Codes: K65.1 - Peritoneal abscess Plan: Per ED report, patient had CT scan done at [facility] showing a growing abdominal abscess measuring 5.73.3. CT scan on 12-18-17 demonstrated right lower quadrant abscess, measuring 3.1 cm. Per IR and CRS, small abscess was not amenable to drainage or surgery. Labs on admission: * WBC 21.2. * Lactic acid 1.7 -> 2.7 -> 1.2. Labs 12/30: * WBC 18.8. Microbiology: * Blood cultures x2: no growth to date. Medications: * Patient received 1x dose of Zosyn in the ED. * Continue Zosyn 4.5 g IV q6hr. * Tylenol 650mg PO PRN pain 1-2. * [place] 5mg PO q4hr PRN pain 3-5. * [place] 7.5 mg PO q4hr PRN pain 6-10. * Morphine 4mg IV q3h PRN for breakthrough pain. Consults: * Colorectal surgery - not available until 01/01. * General surgery. Awaiting recommendations. * ID. Awaiting recommendations. (3) Crohns disease ICD Codes: K50.90 - Crohn's disease, unspecified, without complications Plan: Patient with history of Crohn's disease. She is currently not on maintenance medication. Microbiology: * Hemoccult negative. Medications: * Continue prednisone 40 mg PO daily. * Continue famotidine 20 mg IV push q12h. Consults: * GI. Awaiting recommendations. (4) Hypokalemia ICD Codes: E87.6 - Hypokalemia Status: Resolved Plan: On admission, Potassium of 3.2. Medications: * NS + KCl 20mew at 190ml/hr. * K-Lyte Cl Eff 25mew PO ONCE. (5) Nutrition, metabolism, and development symptoms ICD Codes: R63.8 - Other symptoms and signs concerning food and fluid intake Plan: Diet: * NPO after midnight in case of procedure today. Fluids: * NS + 20meq KCl 190mls/hr Electrolytes: * Monitor and replete as necessary. DVT prophylaxis: * Heparin 5,000 units SQ q8hr. * See the residents documentation for details. I saw and evaluated the patient regarding the alba portions of this evaluation and agree with the residents findings and plans as written. Parts of this note were created using [email or web address] voice recognition software program. While efforts were made to correct any mistakes made by this software, some mistakes, errors, and omissions may remain in the final note that were not caught when the note was originally created. Plan of care was discussed and agreed upon with the patient as specifically documented in the above note. An opportunity to ask questions with explanation was provided. Patient voiced understanding on all information reviewed and discussed. (Jarod Plascencia MD) Delmy Benson MD R1 Dec 30, 2017 11:58 Jarod Plascencia MD Jan 01, 2018 11:31
[2017-12-30 12:00] VITALS: BP 102/58; PULSE 75; RESP 18; TEMP 97.3; O2SAT 96
--- NOTE | 2017-12-30 12:29 | PD.CONS ---
HPI History of Present Illness This is a 42 year old Overweight female who was admitted to the hospital on [address] scan done at [place]. Patient has had multiple hospital stays and evaluations over the past few weeks for a intra-abdominal abscess. Per the record on 12/22/2017 the abscess measured 3.1 cm and was evaluated per IR and CR ES and GI. It was felt that it was not ready for any type of drainage and patient was placed on IV Zosyn and Flagyl. Patient was set up to follow up with GI but states that the right upper quadrant and right mid quadrant abdominal pain is intolerable with sharp stabbing pains and a constant dull ache. She states the pain is sometimes a 10 out of 10 which is followed with nausea, poor appetite. Patient states a 15 pound weight loss over the past 3 months due to eating minimal amounts of food. Patient has a significant history of Crohn's disease and has been on Humira approximately 3 years ago. Patient is hoping to go back on Humira in the future now that she has insurance again. Patient has chronic dark mucousy diarrhea but states that it is more controlled now since she has been on medications. Patient is awake fairly good historian, but is hoping that she can get some relief from this abdominal pain and abscess. Last colonoscopy approximately 7 years ago. (Porsha Clemens) PFSH Past Medical History Crohn's disease intra-abdominal abscess Chronic diarrhea GERD Ovarian cyst Past Surgical History Bowel resection 11 years ago Cholecystectomy Appendectomy Cyst on the chest removal, port placement, history of blood clot in the port Humira treatment (Porsha Clemens) Coded Allergies: No Known Allergies (Verified Adverse Reaction, Unknown, 12/29/17) Medications Administered Medications Medications (Trade) Dose Ordered Sig/Kindra Route PRN Reason Start Time Stop Time Status Last Admin Dose Admin Sodium Chloride (NS Flush) 2 ml BID IV FLUSH 12/29/17 22:15 12/30/17 09:38 Famotidine (Pepcid Inj) 20 mg Q12H IV PUSH 12/30/17 08:00 12/30/17 09:37 Prednisone (Deltasone) 40 mg DAILY PO 12/29/17 22:45 12/30/17 09:37 Acetaminophen/ Hydrocodone Bitart ([place] 7.5-325 Mg) 1 tab Q4H PRN PO PAIN SCALE 6 TO 10 12/29/17 23:00 12/29/17 23:38 Morphine Sulfate (Morphine Inj) 4 mg Q3H PRN IV PUSH BREAKTHROUGH PAIN 12/29/17 23:00 12/30/17 02:18 Piperacillin Sod/ Tazobactam Sod 100 ml @ 200 mls/hr Q6H IV 12/30/17 02:50 12/30/17 09:37 Potassium Chloride/Sodium Chloride 1,000 ml @ 190 mls/hr Q5H16M IV 12/29/17 23:15 12/30/17 09:38 Family History Mom IBS Social History Smoker half pack a day occasional marijuana use, denies any alcohol (Porsha Clemens) Review of Systems Constitutional: COMPLAINS OF: Change in appetite Gastrointestinal: COMPLAINS OF: Abdominal pain, Diarrhea, Nausea (Porsha Clemens) GI Exam Vitals I&O Vital Signs Date Time Temp Pulse Resp B/P (MAP) Pulse Ox O2 Delivery O2 Flow Rate FiO2 12/30/17 12:00 97.3 75 18 102/58 (73) 96 12/30/17 08:00 97.3 64 16 102/59 (73) 97 12/30/17 00:00 98.6 82 20 94/56 (69) 95 12/29/17 21:41 97 12/29/17 19:57 97 Room Air 12/29/17 18:51 16 12/29/17 18:38 98.9 97 16 112/66 (81) 96 I/O 12/29/17 12/29/17 12/29/17 12/30/17 12/30/17 12/30/17 07:00 15:00 23:00 07:00 15:00 23:00 Intake Total 50 ml 1100 ml Balance 50 ml 1100 ml Intake IV Total 50 ml 1100 ml Laboratory Test 12/29/17 19:40 12/29/17 19:54 12/30/17 00:06 12/30/17 03:52 White Blood Count 21.2 TH/MM3 18.8 TH/MM3 Red Blood Count 4.58 MIL/MM3 4.19 MIL/MM3 Hemoglobin 12.1 GM/DL 11.4 GM/DL Hematocrit 36.6 % 33.5 % Mean Corpuscular Volume 80.0 FL 80.0 FL Mean Corpuscular Hemoglobin 26.4 PG 27.1 PG Mean Corpuscular Hemoglobin Concent 33.0 % 33.9 % Red Cell Distribution Width 15.2 % 15.2 % Platelet Count 492 TH/MM3 409 TH/MM3 Mean Platelet Volume 8.0 FL 7.6 FL Neutrophils (%) (Auto) 83.7 % 93.2 % Lymphocytes (%) (Auto) 10.0 % 4.8 % Monocytes (%) (Auto) 5.4 % 1.6 % Eosinophils (%) (Auto) 0.5 % 0.1 % Basophils (%) (Auto) 0.4 % 0.3 % Neutrophils # (Auto) 17.7 TH/MM3 17.5 TH/MM3 Lymphocytes # (Auto) 2.1 TH/MM3 0.9 TH/MM3 Monocytes # (Auto) 1.1 TH/MM3 0.3 TH/MM3 Eosinophils # (Auto) 0.1 TH/MM3 0.0 TH/MM3 Basophils # (Auto) 0.1 TH/MM3 0.1 TH/MM3 CBC Comment DIFF FINAL DIFF FINAL Differential Comment Erythrocyte Sedimentation Rate 68 mm/hr Blood Urea Nitrogen 4 MG/DL 5 MG/DL Creatinine 0.90 MG/DL 0.81 MG/DL Random Glucose 89 MG/DL 122 MG/DL Total Protein 7.3 GM/DL Albumin 2.7 GM/DL Calcium Level 8.4 MG/DL 8.0 MG/DL Alkaline Phosphatase 90 U/L Aspartate Amino Transf (AST/SGOT) 17 U/L Alanine Aminotransferase (ALT/SGPT) 18 U/L Total Bilirubin 0.3 MG/DL Sodium Level 138 MEQ/L 139 MEQ/L Potassium Level 3.2 MEQ/L 3.8 MEQ/L Chloride Level 99 MEQ/L 102 MEQ/L Carbon Dioxide Level 28.7 MEQ/L 28.1 MEQ/L Anion Gap 10 MEQ/L 9 MEQ/L Estimat Glomerular Filtration Rate 68 ML/MIN 77 ML/MIN Magnesium Level 1.7 MG/DL Lipase 79 U/L Urine Color YELLOW Urine Turbidity CLEAR Urine pH 6.5 Urine Specific [place] GREATER THAN 1.050 Urine Protein TRACE mg/dL Urine Glucose (UA) NEG mg/dL Urine Ketones NEG mg/dL Urine Occult Blood TRACE Urine Nitrite NEG Urine Bilirubin NEG Urine Urobilinogen LESS THAN 2.0 MG/DL Urine Leukocyte Esterase NEG Urine RBC 1 /hpf Urine WBC LESS THAN 1 /hpf Urine Squamous Epithelial Cells 1 /hpf Microscopic Urinalysis Comment CULT NOT INDICATED Lactic Acid Level 1.7 mmol/L 2.7 mmol/L 1.2 mmol/L Prothrombin Time 10.8 SEC Prothromb Time International Ratio 1.1 RATIO Activated Partial Thromboplast Time 21.1 SEC Date/Time Source Procedure Growth Status 12/29/17 19:55 Blood Peripheral Aerobic Blood Culture - Preliminary NO GROWTH IN 1 DAY Resulted 12/29/17 19:55 Blood Peripheral Anaerobic Blood Culture - Preliminary NO GROWTH IN 1 DAY Resulted 12/30/17 08:06 Stool Stool Stool Occult Blood (ÁLVARO) - Final HEMOCCULT NEGATIVE Complete Physical Examination HEENT: Overweight, normocephalic; atraumatic; no jaundice. NECK: Neck is supple, no JVD, no lymphadenopathy. CHEST: Chest is clear to auscultation and percussion. CARDIAC: Regular rate and rhythm. ABDOMEN: Round, obese, soft, nondistended, tenderness to light palpation in the mid and upper right quadrant no hepatosplenomegaly; bowel sounds are present in all four quadrants. EXTREMITIES: No clubbing, cyanosis, or edema. SKIN: Normal; no rash; no jaundice. QUALITY LEAD: No focal deficits; alert and oriented times three. Increased anxiety (Porsha Clemens) Assessment and Plan Plan Intra-abdominal abscess increased in size from 3.[address] on 12/22/2017 to 5.73.3 cm per ED report CT done at [place] Abdominal pain right mid and upper quadrant, dull ache with sharp pains wax and wane Decreased appetite secondary to #1 and 2 Crohn's disease with chronic diarrhea, appears to be more controlled at this point due to steroids Flagyl, antibiotics Nausea secondary to 1 into 42-year-old overweight female with a history of Crohn's disease comes to the hospital status post CT scan done today at [place] showing worsening of size of her intra-abdominal abscess. Patient was told here to come and be evaluated, GI consult to assist in her care related to her Crohn's disease and her intra-abdominal abscess. Last colonoscopy per the records 7 years ago. Patient is hoping to go back on her Humira medication when she is out of the hospital now that she has her insurance again. Patient will need to follow-up with GI as an outpatient once she is stabilized and DC'd from hospital. Plan N.p.o. for now IR consult for possible drainage of intra-abdominal abscess. CT scan done today [place] Pepd Steroids Pain meds per attending Anti-medics Zosyn Supportive care Further recommendations to follow Patient was seen per myself and Dr. Mcgregor, note was written on his behalf (Porsha Clemens) Physician Comments Seen and examined, plan as above. Known to our service from recent admission. Will consult IR for possible percutaneous drainage vs surgical resection. Will follow up with you. Thank you. (Elvia Mcgregor MD) Porsha Clemens Dec 30, 2017 12:29 Elvia Mcgregor MD Dec 30, 2017 14:38
[2017-12-30] MEDS ORDERED: ACETAMINOPHEN 325 MG TAB PO PRN (13:15)
--- NOTE | 2017-12-30 13:48 | PD.CAR.PN ---
CVT Progress Note Subjective/Hospital Course: 42-year-old female with known Crohn's disease comes with abdominal pain and elevated white count and is admitted to our institution yesterday. Consult placed for colorectal surgery according to the charge nurse. I was consulted to his general surgeon unified communications architect to see the patient. In the review of the chart I realized that patient has been seen only a few days ago i.e. last week by Dr. Anju Martinez when patient was admitted to the hospital. Patient was supposed to follow-up with Dr. Martinez and gastroenterology Therefore I believe it is appropriate for colorectal service to continue to see the patient. On the other hand if it is okay with colorectal surgery I would be happy to take over the care but I believe it is incumbent upon me to give the choice to the colorectal specialist. Thanks J Objective: Vital Signs Date Time Temp Pulse Resp B/P (MAP) Pulse Ox O2 Delivery O2 Flow Rate FiO2 12/30/17 12:00 97.3 75 18 102/58 (73) 96 12/30/17 08:00 97.3 64 16 102/59 (73) 97 12/30/17 00:00 98.6 82 20 94/56 (69) 95 12/29/17 21:41 97 12/29/17 19:57 97 Room Air 12/29/17 18:51 16 12/29/17 18:38 98.9 97 16 112/66 (81) 96 Labs: Laboratory Tests Test 12/30/17 03:52 White Blood Count 18.8 TH/MM3 (4.0-11.0) Red Blood Count 4.19 MIL/MM3 (4.00-5.30) Hemoglobin 11.4 GM/DL (11.6-15.3) Hematocrit 33.5 % (35.0-46.0) Mean Corpuscular Volume 80.0 FL (80.0-100.0) Mean Corpuscular Hemoglobin 27.1 PG (27.0-34.0) Mean Corpuscular Hemoglobin Concent 33.9 % (32.0-36.0) Red Cell Distribution Width 15.2 % (11.6-17.2) Platelet Count 409 TH/MM3 (150-450) Mean Platelet Volume 7.6 FL (7.0-11.0) Neutrophils (%) (Auto) 93.2 % (16.0-70.0) Lymphocytes (%) (Auto) 4.8 % (9.0-44.0) Monocytes (%) (Auto) 1.6 % (0.0-8.0) Eosinophils (%) (Auto) 0.1 % (0.0-4.0) Basophils (%) (Auto) 0.3 % (0.0-2.0) Neutrophils # (Auto) 17.5 TH/MM3 (1.8-7.7) Lymphocytes # (Auto) 0.9 TH/MM3 (1.0-4.8) Monocytes # (Auto) 0.3 TH/MM3 (0-0.9) Eosinophils # (Auto) 0.0 TH/MM3 (0-0.4) Basophils # (Auto) 0.1 TH/MM3 (0-0.2) CBC Comment DIFF FINAL Differential Comment Blood Urea Nitrogen 5 MG/DL (7-18) Creatinine 0.81 MG/DL (0.50-1.00) Random Glucose 122 MG/DL (74-106) Calcium Level 8.0 MG/DL (8.5-10.1) Sodium Level 139 MEQ/L (136-145) Potassium Level 3.8 MEQ/L (3.5-5.1) Chloride Level 102 MEQ/L (98-107) Carbon Dioxide Level 28.1 MEQ/L (21.0-32.0) Anion Gap 9 MEQ/L (5-15) Estimat Glomerular Filtration Rate 77 ML/MIN (>89) Lactic Acid Level 1.2 mmol/L (0.4-2.0) Result Diagram: 12/30/17 0352 12/30/17 0352 Ivana Martin MD Dec 30, 2017 13:48
[2017-12-30] MEDS: HEPARIN SODIUM - SQ 10,000 UNITS/ML VIAL SQ SCH ×2 (14:24→20:23)
[2017-12-30 16:00] VITALS: BP 99/58; PULSE 70; RESP 16; TEMP 97.1; O2SAT 94
[2017-12-30 20:00] VITALS: BP 111/65; PULSE 78; RESP 20; TEMP 98; O2SAT 96
--- NOTE | 2017-12-30 21:51 | PD.ID.CON ---
History of Present Illness Service ID Consult Requested By Dr Haley Reason for Consult intraabd abscess Primary Care Physician Unknown Diagnoses: History of Present Illness 42 yo F with Chrohn disaeas, multiple resections, chronic diarrhea developped worsening abd pain, chills about 2-3 weeks ago. She was diagnosed with intraabdominal abscess and dscharged on oral abx, but they avtar not help her symptoms and she was reademitted Her CT from 10 day ago showed 10 cm abscess in RLQ Readmitted yday after CT done as o/p in [facility] [place] On presentation afebrile, WBC 21 K started on zosyn Review of Systems Constitutional: COMPLAINS OF: Weight loss (15 lbs) Gastrointestinal: COMPLAINS OF: Abdominal pain, Diarrhea Except as stated in HPI: all other systems reviewed are Neg Past Family Social History Allergies: Coded Allergies: No Known Allergies (Verified Adverse Reaction, Unknown, 12/29/17) Past Medical History Crohn's disease intra-abdominal abscess Chronic diarrhea GERD Ovarian cyst Past Surgical History Bowel resection 11 years ago Cholecystectomy Appendectomy Cyst on the chest removal, port placement, history of blood clot in the port Humira treatment Active Ordered Medications Medications where reviewed in EMR Antibiotics Include: zosyn Family History IBS - mother Social History No ETOH + tobacco 1/2 ppd occ MJ Physical Exam Vital Signs Vital Signs Date Time Temp Pulse Resp B/P (MAP) Pulse Ox O2 Delivery O2 Flow Rate FiO2 12/30/17 20:00 98.0 78 20 111/65 (80) 96 12/30/17 16:00 97.1 70 16 99/58 (72) 94 12/30/17 12:00 97.3 75 18 102/58 (73) 96 12/30/17 08:00 97.3 64 16 102/59 (73) 97 12/30/17 00:00 98.6 82 20 94/56 (69) 95 Physical Exam CONSTITUTIONAL/GENERAL: This is an adequately nourished patient, in no apparent distress. TUBES/LINES/DRAINS: SKIN: No jaundice, rashes, or lesions. Ecchymoses on upper extremities. No wounds seen anteriorly. Skin temperature appropriate. Not diaphoretic. HEAD: Atraumatic. Normocephalic. EYES: Pupils equal and round and reactive. Extraocular motions intact. No scleral icterus. No injection or drainage. Fundi not examined. ENT: Hearing grossly normal. Nose without bleeding or purulent drainage. Throat without visible erythema, exudates, masses, or lesions. NECK: Trachea midline. Supple, nontender. No palpable thyroid enlargement or nodularity. CARDIOVASCULAR: Regular rate and rhythm without murmurs, gallops, or rubs. No JVD. Peripheral pulses symmetric. RESPIRATORY/CHEST: Symmetric, unlabored respirations. Clear to auscultation. Breath sounds equal bilaterally. No wheezes, rales, or rhonchi. GASTROINTESTINAL: Abdomen soft, quite tender in RLQ, nondistended. No hepato- splenomegaly, or palpable masses. No guarding. Bowel sounds present. GENITOURINARY: Without palpable bladder distension. MUSCULOSKELETAL: Extremities without clubbing, cyanosis, or edema. No joint tenderness or effusion noted. No calf tenderness. No mottling or clubbing. LYMPHATICS: No palpable cervical or supraclavicular adenopathy. NEUROLOGICAL: Awake and alert. Motor and sensory grossly within normal limits. Follows commands. Clear speech. Moves all extremities. PSYCHIATRIC: No obvious anxiety/depression. no apparent hallucinations or other psychotic thought process. Laboratory Laboratory Tests Test 12/30/17 00:06 12/30/17 03:52 12/30/17 16:42 Prothrombin Time 10.8 Prothromb Time International Ratio 1.1 Activated Partial Thromboplast Time 21.1 Lactic Acid Level 2.7 1.2 White Blood Count 18.8 Red Blood Count 4.19 Hemoglobin 11.4 Hematocrit 33.5 Mean Corpuscular Volume 80.0 Mean Corpuscular Hemoglobin 27.1 Mean Corpuscular Hemoglobin Concent 33.9 Red Cell Distribution Width 15.2 Platelet Count 409 Mean Platelet Volume 7.6 Neutrophils (%) (Auto) 93.2 Lymphocytes (%) (Auto) 4.8 Monocytes (%) (Auto) 1.6 Eosinophils (%) (Auto) 0.1 Basophils (%) (Auto) 0.3 Neutrophils # (Auto) 17.5 Lymphocytes # (Auto) 0.9 Monocytes # (Auto) 0.3 Eosinophils # (Auto) 0.0 Basophils # (Auto) 0.1 CBC Comment DIFF FINAL Differential Comment Blood Urea Nitrogen 5 Creatinine 0.81 Random Glucose 122 Calcium Level 8.0 Sodium Level 139 Potassium Level 3.8 3.9 Chloride Level 102 Carbon Dioxide Level 28.1 Anion Gap 9 Estimat Glomerular Filtration Rate 77 Date/Time Source Procedure Growth Status 12/29/17 19:55 Blood Peripheral Aerobic Blood Culture - Preliminary NO GROWTH IN 1 DAY Resulted 12/29/17 19:55 Blood Peripheral Anaerobic Blood Culture - Preliminary NO GROWTH IN 1 DAY Resulted 12/30/17 08:06 Stool Stool Stool Occult Blood (ÁLVARO) - Final HEMOCCULT NEGATIVE Complete Result Diagram: 12/30/17 0352 12/30/17 1642 Assessment and Plan Assessment and Plan Naomi roblero Intraabdominal abscess Leukocytosis cont zosyn fu WBC f/u clinically IR drainage is planned for tomorrow Terese Mitchell MD Dec 30, 2017 21:51
[2017-12-30] MEDS: ACETAMINOPHEN/HYDROcodone 325 MG/7.5 MG TAB PO PRN (23:06)
[2017-12-31] VITALS: BP 101/58; PULSE 82; RESP 20; TEMP 99; O2SAT 96
[2017-12-31] MEDS: NS + KCL 20 MEQ INJ 1,000 ML IV SCH ×4 (01:42→20:02)
[2017-12-31] MEDS: PIPERACIL-TAZO 4.5 GM PREMIX 100 ML IV SCH ×4 (01:42→20:02)
[2017-12-31] MEDS: MORPHINE SULFATE 4 MG/ML INJ IV PUSH PRN ×3 (01:42→11:58)
[2017-12-31] MEDS: HEPARIN SODIUM - SQ 10,000 UNITS/ML VIAL SQ SCH ×3 (05:56→20:03)
[2017-12-31 07:27] LABS: HEMATOCRIT 29.9 % (35.0-46.0); HEMOGLOBIN 9.9 GM/DL (11.6-15.3); MEAN CELL VOLUME 80.9 FL (80.0-100.0); MEAN CORPUSCULAR HEMOGLOBIN 26.9 PG (27.0-34.0); MEAN CORPUSCULAR HGB CONC 33.3 % (32.0-36.0); PLATELET COUNT 417 TH/MM3 (150-450); RED BLOOD COUNT 3.69 MIL/MM3 (4.00-5.30); RED CELL DISTRIBUTION WIDTH 15.3 % (11.6-17.2); WHITE BLOOD COUNT 19.9 TH/MM3 (4.0-11.0)
[2017-12-31 08:00] VITALS: BP 107/70; PULSE 76; RESP 17; TEMP 97.6; O2SAT 94
[2017-12-31 08:03] LABS: BICARBONATE 25.6 MEQ/L (21.0-32.0); CALCIUM 7.3 MG/DL (8.5-10.1); CREATININE 0.85 MG/DL (0.50-1.00)
[2017-12-31 08:21] LABS: CALCIUM-PROTEIN CORRECTED 8.2 MG/DL (8.5-10.1); TOTAL PROTEIN 5.5 GM/DL (6.4-8.2)
[2017-12-31] MEDS: SODIUM CHLORIDE 0.9% FLUSH 10 ML FLUSH IV FLUSH SCH ×2 (09:00→20:02)
[2017-12-31] MEDS: ACETAMINOPHEN/HYDROcodone 325 MG/7.5 MG TAB PO PRN ×3 (09:41→18:07)
[2017-12-31] MEDS: predniSONE 20 MG TAB PO SCH (09:41)
[2017-12-31] MEDS: FAMOTIDINE 20 MG/2 ML VIAL IV PUSH SCH ×2 (09:41→20:02)
--- NOTE | 2017-12-31 12:16 | HHI.FPPN ---
Subjective Remarks Patient was seen and evaluated this morning. She reports abdominal pain after PO intake. She associates the abdominal pain with the absence of flatulence and bowel movement. Patient denies chest pain, heart palpitations, shortness of breath, nausea/vomiting, and diarrhea. All questions were answered. (Delmy Benson MD R1) Objective Vitals Vital Signs Date Time Temp Pulse Resp B/P (MAP) Pulse Ox O2 Delivery O2 Flow Rate FiO2 12/31/17 08:00 97.6 76 17 107/70 (82) 94 12/31/17 00:00 99.0 82 20 101/58 (72) 96 12/30/17 20:56 21 12/30/17 20:00 98.0 78 20 111/65 (80) 96 12/30/17 16:00 97.1 70 16 99/58 (72) 94 I/O 12/30/17 12/30/17 12/30/17 12/31/17 12/31/17 12/31/17 07:00 15:00 23:00 07:00 15:00 23:00 Intake Total 1100 ml 1720 ml 1000 ml Balance 1100 ml 1720 ml 1000 ml Intake Oral 720 ml IV Total 1100 ml 1000 ml 1000 ml # Voids 3 # Bowel Movements 2 (Delmy Benson MD R1) Result Diagram: 12/31/17 0650 12/31/17 0656 Objective Remarks GENERAL: This is a well-nourished, well-developed patient, in no apparent distress. SKIN: No rashes, ecchymoses or lesions. Cool and dry. HEAD: Atraumatic. Normocephalic. EYES: Pupils equal round. Extraocular motions intact. No scleral icterus. No injection or drainage. ENT: Nose without bleeding, purulent drainage or septal hematoma. Airway patent. NECK: Trachea midline. No JVD or lymphadenopathy. Supple, nontender, no meningeal signs. CARDIOVASCULAR: Regular rate and rhythm without murmurs, gallops, or rubs. RESPIRATORY: Clear to auscultation. Breath sounds equal bilaterally. No wheezes , rales, or rhonchi. GASTROINTESTINAL: Positive bowel sounds. Abdomen soft, non-distended. Moderately tender to palpation, especially in RUQ near the umbilicus. Mass noted in same area. MUSCULOSKELETAL: Extremities without clubbing, cyanosis, or edema. No calf tenderness. NEUROLOGICAL: Awake and alert. Oriented x3 Medications and IVs Current Medications Medications (Trade) Dose Ordered Sig/Kindra Route Start Time Stop Time Status Last Admin (NS Flush) 2 ml UNSCH PRN IV FLUSH 12/29/17 22:15 (NS Flush) 2 ml BID IV FLUSH 12/29/17 22:15 12/30/17 09:38 (Zofran Odt) 4 mg Q6H PRN PO 12/29/17 22:15 (Narcan Inj) 0.4 mg UNSCH PRN IV PUSH 12/29/17 22:15 (Pepcid Inj) 20 mg Q12H IV PUSH 12/30/17 08:00 12/31/17 09:41 (Deltasone) 40 mg DAILY PO 12/29/17 22:45 12/31/17 09:41 (Conroe 5-325 Mg) 1 tab Q4H PRN PO 12/29/17 23:00 (Conroe 7.5-325 Mg) 1 tab Q4H PRN PO 12/29/17 23:00 12/31/17 09:41 (Morphine Inj) 4 mg Q3H PRN IV PUSH 12/29/17 23:00 12/31/17 11:58 Piperacillin Sod/ Tazobactam Sod 100 ml @ 200 mls/hr Q6H IV 12/30/17 02:50 12/31/17 09:41 Potassium Chloride/Sodium Chloride 1,000 ml @ 190 mls/hr Q5H16M IV 12/29/17 23:15 12/31/17 11:59 (Tylenol) 650 mg Q4H PRN PO 12/30/17 13:15 (Heparin Inj) 5,000 units Q8H SQ 12/30/17 13:30 12/31/17 05:56 (Delmy Benson MD R1) Urinary Catheter: No (Delmy Benson MD R1) Vascular Central Line Catheter: No (Delmy Benson MD R1) A/P Assessment and Plan Patient is a 42 year old female with a past medical history significant of Crohn 's Disease, admitted for sepsis secondary to worsening intraabdominal abscess. Discharge Planning Pending clinical improvement. (Delmy Benson MD R1) Problem List: (1) Sepsis ICD Codes: A41.9 - Sepsis, unspecified organism Status: Resolved Plan: Resolved as of 12/30. On admission, patient met sepsis criteria due to tachycardia and leukocytosis with known source of infection. * See Plan below. (2) Intra-abdominal abscess ICD Codes: K65.1 - Peritoneal abscess Plan: Per ED report, patient had CT scan done at [facility] showing a growing abdominal abscess measuring 5.73.3. CT scan on 12-18-17 demonstrated right lower quadrant abscess, measuring 3.1 cm. Per IR and CRS, small abscess was not amenable to drainage or surgery. 12/31: Reports abdominal pain. No flatulence since yesterday. No BM. IR drainage likely tomorrow. Labs on admission: * WBC 21.2. * Lactic acid 1.7 -> 2.7 -> 1.2. Labs 12/31: * WBC 19.9. Microbiology: * Hemoccult negative. * Blood cultures x2: no growth to date. Medications: * Patient received 1x dose of Zosyn in the ED. * Continue Zosyn 4.5 g IV q6hr. * Tylenol 650mg PO PRN pain 1-2. * Conroe 5mg PO q4hr PRN pain 3-5. * Conroe 7.5 mg PO q4hr PRN pain 6-10. * Morphine 4mg IV q3h PRN for breakthrough pain. Consults: * GI: IR consult for possible drainage of intra-abdominal abscess. CT scan done today [place]. Pepcid. Steroids. Pain meds per attending. Anti- medics. Zosyn. Supportive care. Further recommendations to follow. * Colorectal surgery - not available until 01/01. * General surgery: Deferred to colorectal surgery. * ID: cont zosyn. fu WBC. f/u clinically. IR drainage. (3) Crohns disease ICD Codes: K50.90 - Crohn's disease, unspecified, without complications Plan: Patient with history of Crohn's disease. She is currently not on maintenance medication. Microbiology: * Hemoccult negative. Medications: * Continue prednisone 40 mg PO daily. * Continue famotidine 20 mg IV push q12h. Consults: * GI: IR consult for possible drainage of intra-abdominal abscess. CT scan done today at [place]. Pepcid. Steroids. Pain meds per attending. Anti- medics. Zosyn. Supportive care. Further recommendations to follow. (4) Hypokalemia ICD Codes: E87.6 - Hypokalemia Status: Resolved Plan: Resolved as of 12/30. On admission, Potassium of 3.2. Medications: * NS + KCl 20mew at 190ml/hr. * K-Lyte Cl Eff 25mew PO ONCE. (5) Nutrition, metabolism, and development symptoms ICD Codes: R63.8 - Other symptoms and signs concerning food and fluid intake Plan: Diet: * Clear liquid diet. * NPO after midnight in case of procedure tomorrow. Fluids: * NS + 20meq KCl 190mls/hr Electrolytes: * Monitor and replete as necessary. DVT prophylaxis: * Heparin 5,000 units SQ q8hr. (Delmy Benson MD R1) Problem List: (1) Sepsis ICD Codes: A41.9 - Sepsis, unspecified organism Status: Resolved Plan: Resolved as of 12/30. On admission, patient met sepsis criteria due to tachycardia and leukocytosis with known source of infection. * See Plan below. (2) Intra-abdominal abscess ICD Codes: K65.1 - Peritoneal abscess Plan: Per ED report, patient had CT scan done at [facility] showing a growing abdominal abscess measuring 5.73.3. CT scan on 12-18-17 demonstrated right lower quadrant abscess, measuring 3.1 cm. Per IR and CRS, small abscess was not amenable to drainage or surgery. 12/31: Reports abdominal pain. No flatulence since yesterday. No BM. IR drainage likely tomorrow. Labs on admission: * WBC 21.2. * Lactic acid 1.7 -> 2.7 -> 1.2. Labs 12/31: * WBC 19.9. Microbiology: * Hemoccult negative. * Blood cultures x2: no growth to date. Medications: * Patient received 1x dose of Zosyn in the ED. * Continue Zosyn 4.5 g IV q6hr. * Tylenol 650mg PO PRN pain 1-2. * Conroe 5mg PO q4hr PRN pain 3-5. * Conroe 7.5 mg PO q4hr PRN pain 6-10. * Morphine 4mg IV q3h PRN for breakthrough pain. Consults: * GI: IR consult for possible drainage of intra-abdominal abscess. CT scan done today at [place]. Pepcid. Steroids. Pain meds per attending. Anti- medics. Zosyn. Supportive care. Further recommendations to follow. * Colorectal surgery - not available until 01/01. * General surgery: Deferred to colorectal surgery. * ID: cont zosyn. fu WBC. f/u clinically. IR drainage. (3) Crohns disease ICD Codes: K50.90 - Crohn's disease, unspecified, without complications Plan: Patient with history of Crohn's disease. She is currently not on maintenance medication. Microbiology: * Hemoccult negative. Medications: * Continue prednisone 40 mg PO daily. * Continue famotidine 20 mg IV push q12h. Consults: * GI: IR consult for possible drainage of intra-abdominal abscess. CT scan done today at [place]. Pepcid. Steroids. Pain meds per attending. Anti- medics. Zosyn. Supportive care. Further recommendations to follow. (4) Hypokalemia ICD Codes: E87.6 - Hypokalemia Status: Resolved Plan: Resolved as of 12/30. On admission, Potassium of 3.2. Medications: * NS + KCl 20mew at 190ml/hr. * K-Lyte Cl Eff 25mew PO ONCE. (5) Nutrition, metabolism, and development symptoms ICD Codes: R63.8 - Other symptoms and signs concerning food and fluid intake Plan: Diet: * Clear liquid diet. * NPO after midnight in case of procedure tomorrow. Fluids: * NS + 20meq KCl 190mls/hr Electrolytes: * Monitor and replete as necessary. DVT prophylaxis: * Heparin 5,000 units SQ q8hr. See the residents documentation for details. I saw and evaluated the patient regarding the alba portions of this evaluation and agree with the residents findings and plans as written. Parts of this note were created using eduFire voice recognition software program. While efforts were made to correct any mistakes made by this software, some mistakes, errors, and omissions may remain in the final note that were not caught when the note was originally created. Plan of care was discussed and agreed upon with the patient as specifically documented in the above note. An opportunity to ask questions with explanation was provided. Patient voiced understanding on all information reviewed and discussed. (Jarod Plascencia MD) Delmy Benson MD R1 Dec 31, 2017 12:16 Jarod Plascencia MD Jan 01, 2018 11:37
[2017-12-31 13:18] VITALS: BP 107/70; PULSE 76; RESP 17; TEMP 97.6; O2SAT 94
[2017-12-31] MEDS ORDERED: IOHEXOL 350 MG/ML 10 ML VIAL (for RAD DIAG) IVCONTRAST ONE (13:44)
--- NOTE | 2017-12-31 14:02 | RADRPT ---
EXAM DATE: 12/31/2017 1:48 PM EDT AGE/SEX: 42 years / Female INDICATIONS: Right lower abdomen pain. CLINICAL DATA: This is the patient's initial encounter. Patient reports that signs and symptoms have been present for 1 day and indicates a pain score of 7/10. MEDICAL/SURGICAL HISTORY: Gastroesophageal reflux disease. Colon resection. Appendectomy. Cho lecystectomy. ORAL CONTRAST: No oral contrast ingested. RADIATION DOSE: 13.99 CTDI (mGy) COMPARISON: [facility], CT ABDOMEN & PELVIS W CONTRAST, 12/19/2017. . TECHNIQUE: Multiple contiguous axial images were obtained through the abdomen and pelvis following b olus infusion of 92 ml Omnipaque 350 (iohexol) nonionic water-soluble contrast as a single exam dos e. No oral contrast ingested. Using automated exposure control and adjustment of the mA and/or kV ac cording to patient size, the radiation dose was kept as low as reasonably achievable to obtain optima l diagnostic quality images. FINDINGS: There is basilar and dependent consolidation in both lungs which is increased from December 19. Differenti al diagnosis includes aspiration and bronchopneumonia. No acute findings in the liver, spleen, adrenals, kidneys or pancreas. There are postoperative changes of prior partial colon resection. Again seen is an approximately 3 cm abscess adjacent to several loops of small bowel in the right lower quadrant with adjacent mural thi ckening of small bowel and terminal ileum. No free air is identified. No significant free intraperito lian fluid. No acute bony abnormalities. CONCLUSION: 1. Approximately 3 cm abscess in the right lower quadrant adjacent to several loops of thickened bow el is relatively stable in size since December 19. There is some surrounding inflammatory change. No free air or significant free fluid. 2. Increase in bibasilar lung consolidation could represent superimposed pneumonia. Electronically signed by: Ross Valdez MD 12/31/2017 2:01 PM EDT
[2017-12-31 20:28] VITALS: BP 117/57; PULSE 75; RESP 18; TEMP 97.8; O2SAT 97
[2018-01-01 00:33] VITALS: BP 124/73; PULSE 70; RESP 18; TEMP 97.8; O2SAT 96
[2018-01-01] MEDS: PIPERACIL-TAZO 4.5 GM PREMIX 100 ML IV SCH ×4 (01:22→21:34)
[2018-01-01] MEDS: NS + KCL 20 MEQ INJ 1,000 ML IV SCH ×3 (01:22→17:12)
[2018-01-01] MEDS: HEPARIN SODIUM - SQ 10,000 UNITS/ML VIAL SQ SCH ×3 (05:44→21:35)
--- NOTE | 2018-01-01 07:32 | MB ---
cc: Ivana Martin MD DATE: 12/31/2017 REASON FOR CONSULTATION: Flare-up of Crohn disease, abdominal pain, possible abscess. HISTORY OF PRESENT DISEASE: This 42-year-old female presents to the emergency room at [facility] with abdominal pain, which she states has been going on for several weeks. The patient was just recently admitted to the hospital for the same and a flare-up of Crohn disease. At the time, she was diagnosed with a 3 cm abscess of the pelvis, which was too small for aspiration. The patient was discharged on p.o. antibiotics and then comes back with more pain. At her last admissions, she was seen by Dr. Martinez, the colorectal surgeon, and was supposed to follow up with her, but patient now comes to hospital. I am covering general surgery and seeing patient for the same purpose, and in the future, will be happy to transfer surgical part of care to Dr. Martinez if she wishes to follow the patient again. PAST MEDICAL HISTORY: Complex. The patient has about a 20-year history of Crohn disease. About 15 years ago, apparently, she had some sort of colon resection, probably right colon, and small-bowel resection somewhere in [facility]. Since then, she had several bouts of small-bowel obstruction, which some of them resolved initially at home and some required hospitalization. None required surgery. Now, patient has the small abscess. It should also be noted that patient is noncompliant with care. She is off and on medications with Humira. She was doing well, but then lost insurance about 3 years ago and stopped taking it. PAST SURGICAL HISTORY: Cholecystectomy, appendectomy and some chest cyst removal. MEDICATIONS: Can be found in the record. SOCIAL HISTORY: The patient does not drink, smokes a pack a day of cigarettes and also pot. 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 PHYSICAL EXAMINATION: GENERAL: Reveals a 42-year-old female, somewhat obese. HEENT: Normocephalic. No trauma to head. Pupils equally reactive. Extraocular muscles intact. NECK: Bilateral carotid pulses. No bruits. CHEST: Bilateral breath sounds, decreased though to both lung palacios consistent with some mild COPD. HEART: Regular rhythm. ABDOMEN: Soft, obese. Active bowel sounds. Tender in all 4 quadrants, but especially suprapubic and right lower quadrant. The patient has some voluntary guarding and rebound, but no involuntary guarding. She states she had 2 bowel movements yesterday, does not have diarrhea. EXTREMITIES: Grossly within normal limits. Proximal and distal pulses. No signs of acute vascular deficit. BACK: Normal. NEUROLOGIC: The patient is intact. IMPRESSION AND RECOMMENDATIONS: This patient has longstanding Crohn disease, which required prior surgery, and has been off and on medication, sometimes noncompliant with medications, either due to insurance problems or other issues. The patient now had a flare-up of Crohn's with a small abscess in the right lower quadrant, at which time she was seen by Dr. Anju Martinez from colorectal surgery, which was only about 6 days ago, at [facility] and now patient comes to this emergency room with the same symptoms. The patient is now being seen. CT scan of the abdomen and pelvis will be repeated and if there is a large abscess, this will be drained. On the other hand, the small 3 cm abscess will be quite difficult to drain. As such, patient will also require medical therapy for Crohn disease as per GI specialist. It should be noted that surgery for Crohn disease is reserved for complications of the same including obstruction, fistulization or very rarely perforation. Crohn disease usually does not perforate due to transmural nature of the process. Again, every bout of small-bowel obstruction should be treated conservatively as much as possible because repeat surgeries clearly do not bring any good to these patients, unless absolutely necessary. At this point, I do not see any reason to resort to surgery. The patient should have a repeat CT scan of the abdomen and drainage of the abscess, if such exists. It should also be noted the patient is very anxious and unhappy with her general care and very demanding as far as things being done. I am not sure who was taking care of her, and I explained to her that this is all a process. She complained that "oh well, nobody is probably here over the weekend" and was quite sarcastic about the whole process. This may be a very difficult issue to manage, and patient clearly has no confidence in physicians taking care of her for the last 15 years, I guess. MD BELINDA Maxwell/HENRY , 01:00 PM , 01:46 PM
[2018-01-01 08:00] VITALS: BP 127/81; PULSE 59; RESP 16; TEMP 97.7; O2SAT 97
[2018-01-01] MEDS ORDERED: Vancomycin Consult Pharmacy 1 EA OTHER SCH (08:30)
[2018-01-01] MEDS ORDERED: VANCOMYCIN INJ 1,000 MG in SODIUM CHLOR 0.9% 250 ML INJ 250 ML IV SCH (08:30)
[2018-01-01 08:52] LABS: AUTOMATED NEUTROPHIL # 10.2 TH/MM3 (1.8-7.7); BASOPHIL # 0.1 TH/MM3 (0-0.2); BASOPHIL % 0.6 % (0.0-2.0); EOSINOPHIL # 0.1 TH/MM3 (0-0.4); EOSINOPHIL % 0.7 % (0.0-4.0); HEMATOCRIT 28.3 % (35.0-46.0); HEMOGLOBIN 9.4 GM/DL (11.6-15.3); LYMPH % 17.6 % (9.0-44.0); LYMPHOCYTE # 2.4 TH/MM3 (1.0-4.8); MEAN CELL VOLUME 80.5 FL (80.0-100.0); MEAN CORPUSCULAR HEMOGLOBIN 26.7 PG (27.0-34.0); MEAN CORPUSCULAR HGB CONC 33.1 % (32.0-36.0); MONO % 5.6 % (0.0-8.0); MONOCYTE # 0.8 TH/MM3 (0-0.9); NEUT % 75.5 % (16.0-70.0); PLATELET COUNT 380 TH/MM3 (150-450); RED BLOOD COUNT 3.51 MIL/MM3 (4.00-5.30); RED CELL DISTRIBUTION WIDTH 15.4 % (11.6-17.2); WHITE BLOOD COUNT 13.5 TH/MM3 (4.0-11.0)
[2018-01-01] MEDS: SODIUM CHLORIDE 0.9% FLUSH 10 ML FLUSH IV FLUSH SCH ×2 (09:00→21:00)
[2018-01-01] MEDS: predniSONE 20 MG TAB PO SCH (09:04)
[2018-01-01] MEDS: FAMOTIDINE 20 MG/2 ML VIAL IV PUSH SCH ×2 (09:04→21:34)
[2018-01-01 09:16] LABS: BICARBONATE 22.8 MEQ/L (21.0-32.0); CALCIUM 7.5 MG/DL (8.5-10.1); CREATININE 0.86 MG/DL (0.50-1.00)
--- NOTE | 2018-01-01 10:06 | HHI.FPPN ---
Subjective Remarks Patient was seen and evaluated this morning. She is frustrated that "nothing has been done this weekend." She insists that the abscess needs to be drained prior to discharge. She denies nausea and vomiting. She denies abdominal pain while resting. She reports passing gas but has not yet had a bowel movement. Patient denies chest pain, heart palpitations, and shortness of breath. She denies cough or other URI symptoms. All questions were answered. (Delmy Benson MD R1) Objective Vitals Vital Signs Date Time Temp Pulse Resp B/P (MAP) Pulse Ox O2 Delivery O2 Flow Rate FiO2 01/01/18 00:33 97.8 70 18 124/73 (90) 96 12/31/17 20:28 97.8 75 18 117/57 (77) 97 12/31/17 13:18 97.6 76 17 107/70 (82) 94 I/O 12/31/17 12/31/17 12/31/17 01/01/18 01/01/18 01/01/18 07:00 15:00 23:00 07:00 15:00 23:00 Intake Total 1000 ml 1500 ml 1000 ml Balance 1000 ml 1500 ml 1000 ml Intake Oral 600 ml IV Total 1000 ml 900 ml 1000 ml # Voids 4 4 # Bowel Movements 0 (Delmy Benson MD R1) Result Diagram: 01/01/18 0812 01/01/18 0812 Imaging Last Impressions Abdomen/Pelvis CT 12/31/17 0000 Signed Impressions: CONCLUSION: 1. Approximately 3 cm abscess in the right lower quadrant adjacent to several loops of thickened bowel is relatively stable in size since December 19. There is so me surrounding inflammatory change. No free air or significant free fluid. 2. Increase in bibasilar lung consolidation could represent superimposed pneum onia. Objective Remarks GENERAL: This is a well-nourished, well-developed patient, in no apparent distress. SKIN: No rashes, ecchymoses or lesions. Cool and dry. HEAD: Atraumatic. Normocephalic. EYES: Pupils equal round. Extraocular motions intact. No scleral icterus. No injection or drainage. ENT: Nose without bleeding, purulent drainage or septal hematoma. Airway patent. NECK: Trachea midline. No JVD or lymphadenopathy. Supple, nontender, no meningeal signs. CARDIOVASCULAR: Regular rate and rhythm without murmurs, gallops, or rubs. RESPIRATORY: Breath sounds equal bilaterally. Bibasilar crackles appreciated. No wheezes, rales, or rhonchi. GASTROINTESTINAL: Positive bowel sounds. Abdomen soft, non-distended. Moderately tender to palpation, especially in RUQ near the umbilicus. Mass noted in same area. MUSCULOSKELETAL: Extremities without clubbing, cyanosis, or edema. No calf tenderness. NEUROLOGICAL: Awake and alert. Oriented x3 Medications and IVs Current Medications Medications (Trade) Dose Ordered Sig/Kindra Route Start Time Stop Time Status Last Admin (NS Flush) 2 ml UNSCH PRN IV FLUSH 12/29/17 22:15 (NS Flush) 2 ml BID IV FLUSH 12/29/17 22:15 12/30/17 09:38 (Zofran Odt) 4 mg Q6H PRN PO 12/29/17 22:15 (Narcan Inj) 0.4 mg UNSCH PRN IV PUSH 12/29/17 22:15 (Pepcid Inj) 20 mg Q12H IV PUSH 12/30/17 08:00 01/01/18 09:04 (Deltasone) 40 mg DAILY PO 12/29/17 22:45 01/01/18 09:04 (Folk[place] 5-325 Mg) 1 tab Q4H PRN PO 12/29/17 23:00 ([place] 7.5-325 Mg) 1 tab Q4H PRN PO 12/29/17 23:00 12/31/17 18:07 (Morphine Inj) 4 mg Q3H PRN IV PUSH 12/29/17 23:00 12/31/17 11:58 Piperacillin Sod/ Tazobactam Sod 100 ml @ 200 mls/hr Q6H IV 12/30/17 02:50 01/01/18 09:04 Potassium Chloride/Sodium Chloride 1,000 ml @ 125 mls/hr Q8H IV 12/29/17 23:15 01/01/18 09:12 (Tylenol) 650 mg Q4H PRN PO 12/30/17 13:15 (Heparin Inj) 5,000 units Q8H SQ 12/30/17 13:30 01/01/18 05:44 Pharmacy Profile Note 0 ml @ 0 mls/hr UNSCH OTHER 01/01/18 08:30 Vancomycin HCl 1500 mg/Sodium Chloride 515 ml @ 257.5 mls/ hr Q12H IV 01/01/18 11:00 ([facility] Ordered Lab Info) SPECIFIC LAB TO BE .. ONCE ONCE .XX 01/02/18 22:45 01/02/18 22:46 (Delmy Benson MD R1) Urinary Catheter: No (Delmy Benson MD R1) Vascular Central Line Catheter: No (Delmy Benson MD R1) A/P Assessment and Plan Patient is a 42 year old female with a past medical history significant of Crohn 's Disease, admitted for sepsis secondary to worsening intraabdominal abscess. Discharge Planning Pending clinical improvement. (Delmy Benson MD R1) Problem List: (1) Sepsis ICD Codes: A41.9 - Sepsis, unspecified organism Status: Resolved Plan: Resolved as of 12/30. On admission, patient met sepsis criteria due to tachycardia and leukocytosis with known source of infection. * See Plan below. (2) Intra-abdominal abscess ICD Codes: K65.1 - Peritoneal abscess Plan: Per ED report, patient had CT scan done at [facility] showing a growing abdominal abscess measuring 5.73.3. CT scan on 12-18-17 demonstrated right lower quadrant abscess, measuring 3.1 cm. Per IR and CRS, small abscess was not amenable to drainage or surgery. 01/01: Patient reports feeling better today. Labs on admission: * WBC 21.2. * Lactic acid 1.7 -> 2.7 -> 1.2. Labs 01/01: * WBC 13.5. Microbiology: * Hemoccult negative. * Blood cultures x2: no growth to date. Imaging: * CT Abdomen/Pelvis 12/31: Approximately 3 cm abscess in the right lower quadrant adjacent to several loops of thickened bowel is relatively stable in size since December 19. There is some surrounding inflammatory change. No free air or significant free fluid. Increase in bibasilar lung consolidation could represent superimposed pneumonia. Medications: * Patient received 1x dose of Zosyn in the ED. * Continue Zosyn 4.5 g IV q6hr. * Tylenol 650mg PO PRN pain 1-2. * [place] 5mg PO q4hr PRN pain 3-5. * [place] 7.5 mg PO q4hr PRN pain 6-10. * Morphine 4mg IV q3h PRN for breakthrough pain. Consults: * GI: IR consult for possible drainage of intra-abdominal abscess. Steroids. Pain meds per attending. Anti-medics. Zosyn. Supportive care. Further recommendations to follow. * Colorectal surgery - not available until 01/01. * General surgery: No surgery at this time. Drainage unlikely due to size of abscess. * ID: cont zosyn. fu WBC. f/u clinically. IR drainage. (3) Crohns disease ICD Codes: K50.90 - Crohn's disease, unspecified, without complications Plan: Patient with history of Crohn's disease. She is currently not on maintenance medication. Microbiology: * Hemoccult negative. Medications: * Continue prednisone 40 mg PO daily. * Continue famotidine 20 mg IV push q12h. Consults: * GI: IR consult for possible drainage of intra-abdominal abscess. Pepcid. Steroids. Pain meds per attending. Anti-medics. Zosyn. Supportive care. Further recommendations to follow. (4) Pneumonia ICD Codes: J18.9 - Pneumonia, unspecified organism Status: Acute Plan: Patient denies chest pain, cough, URI symptoms. CT on 12/31 with suspicion for pneumonia. Labs 01/01: * WBC 13.5. Microbiology: * Sputum culture pending. Imaging: * CT Abdomen/Pelvis 12/31: Approximately 3 cm abscess in the right lower quadrant adjacent to several loops of thickened bowel is relatively stable in size since December 19. There is some surrounding inflammatory change. No free air or significant free fluid. Increase in bibasilar lung consolidation could represent superimposed pneumonia. * CXR 01/01: pending. Medications: * Zosyn 4.5 g IV q6hr. * Vancomycin 1,500mg IV q12hr. (5) Hypokalemia ICD Codes: E87.6 - Hypokalemia Status: Resolved Plan: Resolved as of 12/30. On admission, Potassium of 3.2. Medications: * NS + KCl 20mew at 190ml/hr. * K-Lyte Cl Eff 25mew PO ONCE. (6) Nutrition, metabolism, and development symptoms ICD Codes: R63.8 - Other symptoms and signs concerning food and fluid intake Plan: Diet: * NPO after midnight in case of drainage today. Drainage however unlikely. Fluids: * NS + 20meq KCl 125mls/hr. Electrolytes: * Monitor and replete as necessary. DVT prophylaxis: * Heparin 5,000 units SQ q8hr. (Delmy Benson MD R1) Problem List: (1) Sepsis ICD Codes: A41.9 - Sepsis, unspecified organism Status: Resolved Plan: Resolved as of 12/30. On admission, patient met sepsis criteria due to tachycardia and leukocytosis with known source of infection. * See Plan below. (2) Intra-abdominal abscess ICD Codes: K65.1 - Peritoneal abscess Plan: Per ED report, [facility] abdominal abscess measuring 5.73.3. CT scan on 12-18-17 demonstrated right lower quadrant abscess, measuring 3.1 cm. Per IR and CRS, small abscess was not amenable to drainage or surgery. 01/01: Patient reports feeling better today. Labs on admission: * WBC 21.2. * Lactic acid 1.7 -> 2.7 -> 1.2. Labs 01/01: * WBC 13.5. Microbiology: * Hemoccult negative. * Blood cultures x2: no growth to date. Imaging: * CT Abdomen/Pelvis 12/31: Approximately 3 cm abscess in the right lower quadrant adjacent to several loops of thickened bowel is relatively stable in size since December 19. There is some surrounding inflammatory change. No free air or significant free fluid. Increase in bibasilar lung consolidation could represent superimposed pneumonia. Medications: * Patient received 1x dose of Zosyn in the ED. * Continue Zosyn 4.5 g IV q6hr. * Tylenol 650mg PO PRN pain 1-2. * [place] 5mg PO q4hr PRN pain 3-5. * [place] 7.5 mg PO q4hr PRN pain 6-10. * Morphine 4mg IV q3h PRN for breakthrough pain. Consults: * GI: IR consult for possible drainage of intra-abdominal abscess. Steroids. Pain meds per attending. Anti-medics. Zosyn. Supportive care. Further recommendations to follow. * Colorectal surgery - not available until 01/01. * General surgery: No surgery at this time. Drainage unlikely due to size of abscess. * ID: cont zosyn. fu WBC. f/u clinically. IR drainage. (3) Crohns disease ICD Codes: K50.90 - Crohn's disease, unspecified, without complications Plan: Patient with history of Crohn's disease. She is currently not on maintenance medication. Microbiology: * Hemoccult negative. Medications: * Continue prednisone 40 mg PO daily. * Continue famotidine 20 mg IV push q12h. Consults: * GI: IR consult for possible drainage of intra-abdominal abscess. Pepcid. Steroids. Pain meds per attending. Anti-medics. Zosyn. Supportive care. Further recommendations to follow. (4) Pneumonia ICD Codes: J18.9 - Pneumonia, unspecified organism Status: Acute Plan: Patient denies chest pain, cough, URI symptoms. CT on 12/31 with suspicion for pneumonia. Labs 01/01: * WBC 13.5. Microbiology: * Sputum culture pending. Imaging: * CT Abdomen/Pelvis 12/31: Approximately 3 cm abscess in the right lower quadrant adjacent to several loops of thickened bowel is relatively stable in size since December 19. There is some surrounding inflammatory change. No free air or significant free fluid. Increase in bibasilar lung consolidation could represent superimposed pneumonia. * CXR 01/01: pending. Medications: * Zosyn 4.5 g IV q6hr. * Vancomycin 1,500mg IV q12hr. (5) Hypokalemia ICD Codes: E87.6 - Hypokalemia Status: Resolved Plan: Resolved as of 12/30. On admission, Potassium of 3.2. Medications: * NS + KCl 20mew at 190ml/hr. * K-Lyte Cl Eff 25mew PO ONCE. (6) Nutrition, metabolism, and development symptoms ICD Codes: R63.8 - Other symptoms and signs concerning food and fluid intake Plan: Diet: * NPO after midnight in case of drainage today. Drainage however unlikely. Fluids: * NS + 20meq KCl 125mls/hr. Electrolytes: * Monitor and replete as necessary. DVT prophylaxis: * Heparin 5,000 units SQ q8hr. See the residents documentation for details. I saw and evaluated the patient regarding the alba portions of this evaluation and agree with the residents findings and plans as written. Parts of this note were created using [employer] voice recognition software program. While efforts were made to correct any mistakes made by this software, some mistakes, errors, and omissions may remain in the final note that were not caught when the note was originally created. Plan of care was discussed and agreed upon with the patient as specifically documented in the above note. An opportunity to ask questions with explanation was provided. Patient voiced understanding on all information reviewed and discussed. (Jarod Plascencia MD) Delmy Benson MD R1 Jan 01, 2018 10:06 Jarod Plascencia MD Jan 01, 2018 11:45
--- NOTE | 2018-01-01 10:41 | RADRPT ---
EXAM DATE: 01/01/2018 10:37 AM EDT AGE/SEX: 42 years / Female INDICATIONS: Pneumonia. CLINICAL DATA: This is the patient's subsequent encounter. Patient reports that signs and symptoms h ave been present for 1 week and indicates a pain score of 0/10. MEDICAL/SURGICAL HISTORY: . Gastroesophageal reflux disease. Crohn's disease . Colon resection . Appendectomy. Cholecystectomy. COMPARISON: No prior exams available for comparison. FINDINGS: PA and lateral views of the chest demonstrate patchy areas of parenchymal consolidation scattered thr oughout both lower lobes. No effusions. Heart is normal in size. Bony structures are unremarkable. CONCLUSION: Patchy areas of parenchymal consolidation involving the lung bases bilaterally. Electronically signed by: Ian Salazar MD 01/01/2018 10:39 AM EDT
[2018-01-01] MEDS ORDERED: VANCOMYCIN INJ 1,500 MG in SODIUM CHLORID 0.9% 500 ML INJ 500 ML IV SCH (11:00)
[2018-01-01] MEDS ORDERED: MIDAZOLAM HCL 2 MG/2 ML VIAL ONE (12:11)
[2018-01-01 13:15] VITALS: BP 135/87; PULSE 60; RESP 17; TEMP 98.7; O2SAT 92
[2018-01-01] MEDS ORDERED: LIDOCAINE HCL 1% 10 ML VIAL SQ ONE (13:24)
[2018-01-01 13:45] VITALS: BP 138/74; PULSE 58; RESP 18; O2SAT 94
[2018-01-01] MEDS: ACETAMINOPHEN/HYDROcodone 325 MG/7.5 MG TAB PO PRN ×2 (13:51→23:59)
[2018-01-01] MEDS: SODIUM CHLORIDE 0.9% 10 ML VIAL IRRIGATION SCH ×2 (14:00→21:35)
[2018-01-01 16:00] VITALS: BP 110/67; PULSE 63; RESP 18; TEMP 97.8; O2SAT 96
--- NOTE | 2018-01-01 17:19 | PD.CAR.PN ---
CVT Progress Note Subjective/Hospital Course: 42-year-old female with known Crohn's disease comes with abdominal pain and elevated white count and is admitted to our institution yesterday. Consult placed for colorectal surgery according to the charge nurse. I was consulted to his general surgeon education manager to see the patient. In the review of the chart I realized that patient has been seen only a few days ago i.e. last week by Dr. Anju Martinez when patient was admitted to the hospital. Patient was supposed to follow-up with Dr. Martinez and gastroenterology Therefore I believe it is appropriate for colorectal service to continue to see the patient. On the other hand if it is okay with colorectal surgery I would be happy to take over the care but I believe it is incumbent upon me to give the choice to the colorectal specialist. Thanks J 01/01/2018 Abdomen soft active bowel sounds Tender in all 4 quadrants more so in the right lower quadrant and suprapubic No no guarding and some rebound CT scan of the abdomen again reveals about 3 cm collection right lower quadrant , successfully aspirated by interventional radiology In essence this patient does not need any surgery but needs adequate medical management of her Crohn's disease in order to prevent or minimize chance of complications Invasive therapy and surgery in Crohn's disease increases the chance of fistulization either as an entero-enteral fistula enterocutaneous fistula or such and increases the chance of bowel obstruction Therefore invasive procedure should be avoided as much as possible and be reserved only for complications of Crohn's requiring surgical approach Patient has been noncompliant with her medical therapy and still while discussing it with her she is very impatient as to the outcome and results. Crohn's disease is a chronic condition has been no incurable but manageable with patient's and find attention to detail. This patient has not had that for a long time and compliance to therapy is paramount I have nothing to add from surgical point to the management of the patient at this time We will sign off and please reconsult if any issues arise Objective: Vital Signs Date Time Temp Pulse Resp B/P (MAP) Pulse Ox O2 Delivery O2 Flow Rate FiO2 01/01/18 13:45 58 18 138/74 (95) 94 01/01/18 13:15 98.7 60 17 135/87 (103) 92 01/01/18 08:00 97.7 59 16 127/81 (96) 97 01/01/18 00:33 97.8 70 18 124/73 (90) 96 12/31/17 20:28 97.8 75 18 117/57 (77) 97 Labs: Laboratory Tests Test 01/01/18 08:12 White Blood Count 13.5 TH/MM3 (4.0-11.0) Red Blood Count 3.51 MIL/MM3 (4.00-5.30) Hemoglobin 9.4 GM/DL (11.6-15.3) Hematocrit 28.3 % (35.0-46.0) Mean Corpuscular Volume 80.5 FL (80.0-100.0) Mean Corpuscular Hemoglobin 26.7 PG (27.0-34.0) Mean Corpuscular Hemoglobin Concent 33.1 % (32.0-36.0) Red Cell Distribution Width 15.4 % (11.6-17.2) Platelet Count 380 TH/MM3 (150-450) Mean Platelet Volume 8.0 FL (7.0-11.0) Neutrophils (%) (Auto) 75.5 % (16.0-70.0) Lymphocytes (%) (Auto) 17.6 % (9.0-44.0) Monocytes (%) (Auto) 5.6 % (0.0-8.0) Eosinophils (%) (Auto) 0.7 % (0.0-4.0) Basophils (%) (Auto) 0.6 % (0.0-2.0) Neutrophils # (Auto) 10.2 TH/MM3 (1.8-7.7) Lymphocytes # (Auto) 2.4 TH/MM3 (1.0-4.8) Monocytes # (Auto) 0.8 TH/MM3 (0-0.9) Eosinophils # (Auto) 0.1 TH/MM3 (0-0.4) Basophils # (Auto) 0.1 TH/MM3 (0-0.2) CBC Comment DIFF FINAL Differential Comment Blood Urea Nitrogen 6 MG/DL (7-18) Creatinine 0.86 MG/DL (0.50-1.00) Random Glucose 76 MG/DL (74-106) Calcium Level 7.5 MG/DL (8.5-10.1) Sodium Level 144 MEQ/L (136-145) Potassium Level 3.8 MEQ/L (3.5-5.1) Chloride Level 111 MEQ/L (98-107) Carbon Dioxide Level 22.8 MEQ/L (21.0-32.0) Anion Gap 10 MEQ/L (5-15) Estimat Glomerular Filtration Rate 72 ML/MIN (>89) Result Diagram: 01/01/18 0812 01/01/18 0812 Ivana Martin MD Jan 01, 2018 17:19
--- NOTE | 2018-01-01 18:25 | HHI.GIFU ---
Subjective Remarks Pt back from CT with abscess drainage Some pain to drain site Accordion drain with small amount of BRB Denies nausea, vomiting Tolerating PO (Tania Layton) Objective Vitals I&O Vital Signs Date Time Temp Pulse Resp B/P (MAP) Pulse Ox O2 Delivery O2 Flow Rate FiO2 01/01/18 13:45 58 18 138/74 (95) 94 01/01/18 13:15 98.7 60 17 135/87 (103) 92 01/01/18 08:00 97.7 59 16 127/81 (96) 97 01/01/18 00:33 97.8 70 18 124/73 (90) 96 12/31/17 20:28 97.8 75 18 117/57 (77) 97 I/O 12/31/17 12/31/17 12/31/17 01/01/18 01/01/18 01/01/18 07:00 15:00 23:00 07:00 15:00 23:00 Intake Total 1000 ml 1500 ml 1000 ml 463 ml 200 ml Output Total 5 ml Balance 1000 ml 1500 ml 1000 ml 463 ml 195 ml Intake Oral 600 ml IV Total 1000 ml 900 ml 1000 ml 463 ml 200 ml Output Drainage Total 5 ml # Voids 4 4 # Bowel Movements 0 Laboratory Laboratory Tests Test 01/01/18 08:12 White Blood Count 13.5 Red Blood Count 3.51 Hemoglobin 9.4 Hematocrit 28.3 Mean Corpuscular Volume 80.5 Mean Corpuscular Hemoglobin 26.7 Mean Corpuscular Hemoglobin Concent 33.1 Red Cell Distribution Width 15.4 Platelet Count 380 Mean Platelet Volume 8.0 Neutrophils (%) (Auto) 75.5 Lymphocytes (%) (Auto) 17.6 Monocytes (%) (Auto) 5.6 Eosinophils (%) (Auto) 0.7 Basophils (%) (Auto) 0.6 Neutrophils # (Auto) 10.2 Lymphocytes # (Auto) 2.4 Monocytes # (Auto) 0.8 Eosinophils # (Auto) 0.1 Basophils # (Auto) 0.1 CBC Comment DIFF FINAL Differential Comment Blood Urea Nitrogen 6 Creatinine 0.86 Random Glucose 76 Calcium Level 7.5 Sodium Level 144 Potassium Level 3.8 Chloride Level 111 Carbon Dioxide Level 22.8 Anion Gap 10 Estimat Glomerular Filtration Rate 72 Date/Time Source Procedure Growth Status 12/29/17 19:55 Blood Peripheral Aerobic Blood Culture - Preliminary NO GROWTH IN 3 DAYS Resulted 12/29/17 19:55 Blood Peripheral Anaerobic Blood Culture - Preliminary NO GROWTH IN 3 DAYS Resulted 01/01/18 12:45 Fluid Peritoneal Fluid Gram Stain - Final Resulted 01/01/18 12:45 Fluid Peritoneal Fluid Body Fluid Culture Pending Resulted 12/30/17 08:06 Stool Stool Stool Occult Blood (ÁLVARO) - Final HEMOCCULT NEGATIVE Complete Imaging Last Impressions Chest X-Ray 01/01/18 0000 Signed Impressions: CONCLUSION: Patchy areas of parenchymal consolidation involving the lung bases bilateral ly. Abdomen/Pelvis CT 12/31/17 0000 Signed Impressions: CONCLUSION: 1. Approximately 3 cm abscess in the right lower quadrant adjacent to several loops of thickened bowel is relatively stable in size since December 19. There is so me surrounding inflammatory change. No free air or significant free fluid. 2. Increase in bibasilar lung consolidation could represent superimposed pneum onia. Physical Exam HEENT: Normocephalic; atraumatic CHEST: Even/unlabored CARDIAC: RRR ABDOMEN: Round, soft, deferred abdominal palpation due to recent drain placement and soreness, bowel sounds active EXTREMITIES: No clubbing, cyanosis, or edema. SKIN: Normal; no rash; no jaundice. [employer]: Alert and oriented times three. (Tania Layton [facility]) Assessment and Plan Plan Assessment: - Crohns disease- Diagnosed at 25 years old, S/P partial small bowel and partial colon resection at 27 years old. Has been on multiple medications for Crohns over the years specifically mentioned Pentasa, found it difficult to comply with taking multiple pills a day. On Humira 6-7 years ago for 7 months with good relief of symptoms, unfortunately lost her insurance and was unable to continue treatment Last colonoscopy 7 years ago, states inflammation at the anastomosis site. CT abdomen and pelvis W IV contrast (12/19) Focal abscess is almost 3.1 cm in size adjacent to loops of bowel right lower quadrant with haziness of the adjacent mesenteric fat not present on the prior exam from 2016 and appears to be outside of the loops of bowel. Small bowel follow through --> Status post small bowel and colonic resection with no gross extravasation identified. If further evaluation is clinically indicated then a repeat pelvic CT with oral contrast would be the most sensitive detection method. Pt reports the pain became unbearable in her abdomen and she was unable to walk so she was sent back to the ER. Repeat CT reveals abscess is 3 cm, stable in size since previous exam on December 19. IR did drain abscess and placed accordion drain. Pt was seen outpatient by our service after discharge, recommended biologics when acute infection resolved. Hepatitis B negative and TB negative done on 12/21/17 Pt was also seen by colorectal during previous admission, Dr. Martinez, last note stated no surgery recommended due to previous surgery and risk for short gut syndrome Plan: Monitor accordion drain output from abscess Continue Zosyn Supportive care Biologics to be started outpatient when infection resolves Further recommendations based on clinical course Pt has been seen and examined by myself and Dr. Mcgregor and this note is written on his behalf (Tania Layton) Physician Comments Continue treatment for abscess with drainage and antibiotics, Will follow up with you for maintainable treatment afterward. (Elvia Mcgregor MD) Tania Layton Jan 01, 2018 18:25 Elvia Mcgregor MD Jan 02, 2018 09:35
[2018-01-01 20:00] VITALS: BP 130/73; PULSE 55; RESP 16; TEMP 97.7; O2SAT 97
[2018-01-02] VITALS: BP 128/70; PULSE 50; RESP 16; TEMP 97.9; O2SAT 96
[2018-01-02] MEDS: NS + KCL 20 MEQ INJ 1,000 ML IV SCH ×3 (00:01→17:12)
[2018-01-02] MEDS: PIPERACIL-TAZO 4.5 GM PREMIX 100 ML IV SCH ×4 (02:50→21:26)
[2018-01-02] MEDS: ACETAMINOPHEN/HYDROcodone 325 MG/7.5 MG TAB PO PRN ×3 (04:35→21:33)
[2018-01-02] MEDS: HEPARIN SODIUM - SQ 10,000 UNITS/ML VIAL SQ SCH ×3 (04:37→21:26)
[2018-01-02] MEDS: SODIUM CHLORIDE 0.9% 10 ML VIAL IRRIGATION SCH ×3 (06:00→21:38)
[2018-01-02 07:14] LABS: HEMATOCRIT 28.2 % (35.0-46.0); HEMOGLOBIN 9.4 GM/DL (11.6-15.3); MEAN CELL VOLUME 80.1 FL (80.0-100.0); MEAN CORPUSCULAR HEMOGLOBIN 26.7 PG (27.0-34.0); MEAN CORPUSCULAR HGB CONC 33.4 % (32.0-36.0); MEAN PLATELET VOLUME 8.3 FL (7.0-11.0); PLATELET COUNT 360 TH/MM3 (150-450); RED BLOOD COUNT 3.52 MIL/MM3 (4.00-5.30); RED CELL DISTRIBUTION WIDTH 15.2 % (11.6-17.2); WHITE BLOOD COUNT 13.5 TH/MM3 (4.0-11.0)
[2018-01-02 07:40] LABS: CALCIUM 7.4 MG/DL (8.5-10.1); CREATININE 0.8 MG/DL (0.50-1.00)
[2018-01-02 08:00] VITALS: BP 126/64; PULSE 55; RESP 18; TEMP 98.1; O2SAT 93
[2018-01-02 08:12] LABS: CALCIUM-PROTEIN CORRECTED 8.2 MG/DL (8.5-10.1); TOTAL PROTEIN 5.7 GM/DL (6.4-8.2)
--- NOTE | 2018-01-02 08:14 | RADRPT ---
EXAM DATE: 01/01/2018 1:14 PM EDT AGE/SEX: 42 years / Female INDICATIONS: Right lower quadrant abdominal abscess. CLINICAL DATA: This is the patient's initial encounter. Patient reports that signs and symptoms have been present for 1 day and indicates a pain score of 0/10. MEDICAL/SURGICAL HISTORY: Crohn's disease. Appendectomy. Cholecystectomy. COMPARISON: No prior exams available for comparison. SEDATION TIME (min): 30 min BIOPSY SITE: right lower abdomen MEDICATION(S): 4mg midazolam (Versed) IV 200mcg fentanyl (Sublimaze) IV DEVICE(S): 8 Fr Skater FLUID: Total volume of 5 cc of pus was removed. Fluid was sent to lab for ordered studies.. . . PROCEDURE : CT guided drainage of the right lower quadrant abscess. The risks, benefits and alternatives to the procedure were explained and verbal and written consent w as obtained. Using automated exposure control and adjustment of the mA and/or kV according to patient size, radiation dose was kept as low as reasonably achievable to obtain optimal diagnostic quality i mages. The site was prepped in sterile fashion. Full sterile technique was used, including cap, ma sk, sterile gloves and gown and a large sterile sheet. Hand hygiene and 2% chlorhexidine and/or beta dine/alcohol prep was utilized per protocol for cutaneous antisepsis. The skin and subcutaneous tiss ues were infiltrated with local anesthetic solution. DICOM format image data is available electronic ally for review and comparison. Using CT guidance the prescribed site was localized. Drainage was performed using the prescribed cat heter. The patient tolerated the procedure well and there were no complications. The patient tolerated the procedure well and there were no complications. The patient was sent to post anesthesia recovery in s table condition. FINDINGS: Successful CT-guided placement of 8 Filipino locking pigtail drain in right lower quadrant abscess was performed as described above. Pus was sent for culture and sensitivity. CONCLUSION: 1. Uncomplicated CT guided drainage with placement of 8 Filipino locking pigtail drain. Electronically signed by: Rod Clancy MD 01/02/2018 8:12 AM EDT
[2018-01-02] MEDS: FAMOTIDINE 20 MG/2 ML VIAL IV PUSH SCH (08:49)
[2018-01-02] MEDS: SODIUM CHLORIDE 0.9% FLUSH 10 ML FLUSH IV FLUSH SCH ×2 (08:49→21:00)
[2018-01-02] MEDS: predniSONE 20 MG TAB PO SCH (08:50)
--- NOTE | 2018-01-02 09:42 | HHI.FPPN ---
Subjective Remarks Patient seen and examined this morning. No acute events overnight. Patient states she continues to be in moderate discomfort with the pain focally at her drain site. She otherwise has no complaints and denies any fevers, chills, SOB, chest pain, NVD, ABD pain, or calf tenderness. (Luiz Arita MD R2) Objective Vitals Vital Signs Date Time Temp Pulse Resp B/P (MAP) Pulse Ox O2 Delivery O2 Flow Rate FiO2 01/02/18 00:00 97.9 50 16 128/70 (89) 96 01/01/18 20:00 97.7 55 16 130/73 (92) 97 01/01/18 16:00 97.8 63 18 110/67 (81) 96 01/01/18 13:45 58 18 138/74 (95) 94 01/01/18 13:15 98.7 60 17 135/87 (103) 92 I/O 01/01/18 01/01/18 01/01/18 01/02/18 01/02/18 01/02/18 07:00 15:00 23:00 07:00 15:00 23:00 Intake Total 1000 ml 463 ml 300 ml 100 ml Output Total 5 ml Balance 1000 ml 463 ml 295 ml 100 ml IV Total 1000 ml 463 ml 300 ml 100 ml Output Drainage Total 5 ml # Voids 4 2 (Luiz Arita MD R2) Result Diagram: 01/02/1862601/02/18626 Objective Remarks GENERAL: Well-nourished, well-developed patient lying in bed in NAD. SKIN: Cool and dry. HEENT: AT, NC with EOMI. No rhinorrhea. No JVD or LAD appreciated. CARDIOVASCULAR: Regular rate and rhythm without murmurs, gallops, or rubs. RESPIRATORY: Clear to auscultation BL without CRW. No increased WOB, but shallow breathing secondary to pain. GASTROINTESTINAL: Positive bowel sounds. Abdomen soft, non-distended. Moderately tender to palpation, especially in RUQ near the umbilicus. Accordion drain in placed with site CDI. [place] with serosanguineous fluid <50cc without purulence. MUSCULOSKELETAL: Extremities without clubbing, cyanosis, or edema. No calf tenderness. NEUROLOGICAL: Awake, alert, oriented x3. Normal speech and judgement (Luiz Arita MD R2) A/P Assessment and Plan Patient is a 42 year old female with a past medical history significant of Crohn 's Disease, admitted for sepsis secondary to worsening intraabdominal abscess. Discharge Planning Pending clinical improvement. (Luiz Arita MD R2) Problem List: (1) Intra-abdominal abscess ICD Codes: K65.1 - Peritoneal abscess Status: Acute Plan: Per ED report, patient had CT scan done at [facility] showing a growing abdominal abscess measuring 5.73.3. CT scan on 12-18-17 demonstrated right lower quadrant abscess, measuring 3.1 cm. Per IR and CRS, small abscess was not amenable to drainage or surgery. 01/01: Patient reports feeling better today. Labs on admission: * WBC 21.2. * Lactic acid 1.7 -> 2.7 -> 1.2. Labs 01/02: * WBC 13.5. Microbiology: * Hemoccult negative. * Blood cultures x2: no growth to date. * Peritoneal Fluid: Pending Imaging: * CT Abdomen/Pelvis 12/31: Approximately 3 cm abscess in the right lower quadrant adjacent to several loops of thickened bowel is relatively stable in size since December 19. There is some surrounding inflammatory change. No free air or significant free fluid. Increase in bibasilar lung consolidation could represent superimposed pneumonia. Medications: * Patient received 1x dose of Zosyn in the ED. * Continue Zosyn 4.5 g IV q6hr. * Tylenol 650mg PO PRN pain 1-2. * Topanga 5mg PO q4hr PRN pain 3-5. * Topanga 7.5 mg PO q4hr PRN pain 6-10. * Morphine 4mg IV q3h PRN for breakthrough pain. Consults: * GI: Steroids. Pain meds per attending. Anti-medics. Zosyn. Supportive care. Further recommendations to follow. * Colorectal surgery - not available until 01/01. * General surgery: No surgery at this time. Drainage unlikely due to size of abscess. * ID: cont zosyn. fu WBC. f/u clinically. IR drainage. * IR: Drainage of abscess on 01/01/[address] with accord[address] drain in place. (2) Sepsis ICD Codes: A41.9 - Sepsis, unspecified organism Status: Resolved Plan: Resolved as of 12/30. On admission, patient met sepsis criteria due to tachycardia and leukocytosis with known source of infection. * See Plan below. (3) Crohns disease ICD Codes: K50.90 - Crohn's disease, unspecified, without complications Status: Chronic Plan: Patient with history of Crohn's disease. She is currently not on maintenance medication. Microbiology: * Hemoccult negative. Medications: * Continue prednisone 40 mg PO daily. * Continue famotidine 20 mg IV push q12h. Consults: * GI: IR consult for possible drainage of intra-abdominal abscess. Pepcid. Steroids. Pain meds per attending. Anti-medics. Zosyn. Supportive care. Further recommendations to follow. (4) Atelectasis ICD Codes: J98.11 - Atelectasis Status: Acute Plan: Patient denies chest pain, cough, URI symptoms. Likely atelectasis CT on 12/31 with suspicion for pneumonia. Encouraged incentive spirometry Imaging: * CT Abdomen/Pelvis 12/31: Approximately 3 cm abscess in the right lower quadrant adjacent to several loops of thickened bowel is relatively stable in size since December 19. There is some surrounding inflammatory change. No free air or significant free fluid. Increase in bibasilar lung consolidation could represent superimposed pneumonia. * CXR 01/01: Patchy consolidations bilaterally (5) Hypokalemia ICD Codes: E87.6 - Hypokalemia Status: Resolved Plan: Resolved as of 12/30. On admission, Potassium of 3.2. Medications: * NS + KCl 20mew at 190ml/hr. * K-Lyte Cl Eff 25mew PO ONCE. (6) Nutrition, metabolism, and development symptoms ICD Codes: R63.8 - Other symptoms and signs concerning food and fluid intake Plan: Diet: * Regular as tolerated Fluids: * NS + 20meq KCl 60 mls/hr. Electrolytes: * Monitor and replete as necessary. * Hypocalcemia - Started Calcium Carbonate 500mg BID DVT prophylaxis: * Heparin 5,000 units SQ q8hr. See the residents documentation for details. I saw and evaluated the patient regarding the alba portions of this evaluation and agree with the residents findings and plans as written. Parts of this note were created using Cloak voice recognition software program. While efforts were made to correct any mistakes made by this software, some mistakes, errors, and omissions may remain in the final note that were not caught when the note was originally created. Plan of care was discussed and agreed upon with the patient as specifically documented in the above note. An opportunity to ask questions with explanation was provided. Patient voiced understanding on all information reviewed and discussed. (Luiz Arita MD R2) Problem List: (1) Intra-abdominal abscess ICD Codes: K65.1 - Peritoneal abscess Status: Acute Plan: Per ED report, patient had CT scan done at [facility] showing a growing abdominal abscess measuring 5.73.3. CT scan on 12-18-17 demonstrated right lower quadrant abscess, measuring 3.1 cm. Per IR and CRS, small abscess was not amenable to drainage or surgery. 01/01: Patient reports feeling better today. Labs on admission: * WBC 21.2. * Lactic acid 1.7 -> 2.7 -> 1.2. Labs 01/02: * WBC 13.5. Microbiology: * Hemoccult negative. * Blood cultures x2: no growth to date. * Peritoneal Fluid: Pending Imaging: * CT Abdomen/Pelvis 12/31: Approximately 3 cm abscess in the right lower quadrant adjacent to several loops of thickened bowel is relatively stable in size since December 19. There is some surrounding inflammatory change. No free air or significant free fluid. Increase in bibasilar lung consolidation could represent superimposed pneumonia. Medications: * Patient received 1x dose of Zosyn in the ED. * Continue Zosyn 4.5 g IV q6hr. * Tylenol 650mg PO PRN pain 1-2. * Topanga 5mg PO q4hr PRN pain 3-5. * [place]anga 7.5 mg PO q4hr PRN pain 6-10. * Morphine 4mg IV q3h PRN for breakthrough pain. Consults: * GI: Steroids. Pain meds per attending. Anti-medics. Zosyn. Supportive care. Further recommendations to follow. * Colorectal surgery - not available until 01/01. * General surgery: No surgery at this time. Drainage unlikely due to size of abscess. * ID: cont zosyn. fu WBC. f/u clinically. IR drainage. * IR: Drainage of abscess on 01/01/[address] with accord[address] drain in place. (2) Sepsis ICD Codes: A41.9 - Sepsis, unspecified organism Status: Resolved Plan: Resolved as of 12/30. On admission, patient met sepsis criteria due to tachycardia and leukocytosis with known source of infection. * See Plan below. (3) Crohns disease ICD Codes: K50.90 - Crohn's disease, unspecified, without complications Status: Chronic Plan: Patient with history of Crohn's disease. She is currently not on maintenance medication. Microbiology: * Hemoccult negative. Medications: * Continue prednisone 40 mg PO daily. * Continue famotidine 20 mg IV push q12h. Consults: * GI: IR consult for possible drainage of intra-abdominal abscess. Pepcid. Steroids. Pain meds per attending. Anti-medics. Zosyn. Supportive care. Further recommendations to follow. (4) Atelectasis ICD Codes: J98.11 - Atelectasis Status: Acute Plan: Patient denies chest pain, cough, URI symptoms. Likely atelectasis CT on 12/31 with suspicion for pneumonia. Encouraged incentive spirometry Imaging: * CT Abdomen/Pelvis 12/31: Approximately 3 cm abscess in the right lower quadrant adjacent to several loops of thickened bowel is relatively stable in size since December 19. There is some surrounding inflammatory change. No free air or significant free fluid. Increase in bibasilar lung consolidation could represent superimposed pneumonia. * CXR 01/01: Patchy consolidations bilaterally (5) Hypokalemia ICD Codes: E87.6 - Hypokalemia Status: Resolved Plan: Resolved as of 12/30. On admission, Potassium of 3.2. Medications: * NS + KCl 20mew at 190ml/hr. * K-Lyte Cl Eff 25mew PO ONCE. (6) Nutrition, metabolism, and development symptoms ICD Codes: R63.8 - Other symptoms and signs concerning food and fluid intake Plan: Diet: * Regular as tolerated Fluids: * NS + 20meq KCl 60 mls/hr. Electrolytes: * Monitor and replete as necessary. * Hypocalcemia - Started Calcium Carbonate 500mg BID DVT prophylaxis: * Heparin 5,000 units SQ q8hr. See the residents documentation for details. I saw and evaluated the patient regarding the alba portions of this evaluation and agree with the residents findings and plans as written. Parts of this note were created using Cloak voice recognition software program. While efforts were made to correct any mistakes made by this software, some mistakes, errors, and omissions may remain in the final note that were not caught when the note was originally created. Plan of care was discussed and agreed upon with the patient as specifically documented in the above note. An opportunity to ask questions with explanation was provided. Patient voiced understanding on all information reviewed and discussed. (Jaord Plascencia MD) Luiz Arita MD R2 Jan 02, 2018 09:42 Jarod Plascencia MD Jan 04, 2018 11:34
--- NOTE | 2018-01-02 10:04 | HHI.IDPN ---
Subjective Subjective Remarks s/p drainage placement in RUQ by IR Dory w/o org's , + WBC co abdominal pain no fever, blood clx are negative Antibiotics zosyn Past Medical History Ted's osbaldo Allergies: Coded Allergies: No Known Allergies (Verified Adverse Reaction, Unknown, 12/29/17) Objective . Vital Signs Date Time Temp Pulse Resp B/P (MAP) Pulse Ox O2 Delivery O2 Flow Rate FiO2 01/02/18 00:00 97.9 50 16 128/70 (89) 96 01/01/18 20:00 97.7 55 16 130/73 (92) 97 01/01/18 16:00 97.8 63 18 110/67 (81) 96 01/01/18 13:45 58 18 138/74 (95) 94 01/01/18 13:15 98.7 60 17 135/87 (103) 92 . Laboratory Tests Test 01/01/18 08:12 01/02/18 06:27 White Blood Count 13.5 TH/MM3 13.5 TH/MM3 Red Blood Count 3.51 MIL/MM3 3.52 MIL/MM3 Hemoglobin 9.4 GM/DL 9.4 GM/DL Hematocrit 28.3 % 28.2 % Mean Corpuscular Volume 80.5 FL 80.1 FL Mean Corpuscular Hemoglobin 26.7 PG 26.7 PG Mean Corpuscular Hemoglobin Concent 33.1 % 33.4 % Red Cell Distribution Width 15.4 % 15.2 % Platelet Count 380 TH/MM3 360 TH/MM3 Mean Platelet Volume 8.0 FL 8.3 FL Neutrophils (%) (Auto) 75.5 % Lymphocytes (%) (Auto) 17.6 % Monocytes (%) (Auto) 5.6 % Eosinophils (%) (Auto) 0.7 % Basophils (%) (Auto) 0.6 % Neutrophils # (Auto) 10.2 TH/MM3 Lymphocytes # (Auto) 2.4 TH/MM3 Monocytes # (Auto) 0.8 TH/MM3 Eosinophils # (Auto) 0.1 TH/MM3 Basophils # (Auto) 0.1 TH/MM3 CBC Comment DIFF FINAL Differential Comment Laboratory Tests Test 01/01/18 08:12 01/02/18 06:27 Blood Urea Nitrogen 6 MG/DL 6 MG/DL Creatinine 0.86 MG/DL 0.80 MG/DL Random Glucose 76 MG/DL 89 MG/DL Calcium Level 7.5 MG/DL 7.4 MG/DL Sodium Level 144 MEQ/L 141 MEQ/L Potassium Level 3.8 MEQ/L 3.8 MEQ/L Chloride Level 111 MEQ/L 109 MEQ/L Carbon Dioxide Level 22.8 MEQ/L 24.0 MEQ/L Anion Gap 10 MEQ/L 8 MEQ/L Estimat Glomerular Filtration Rate 72 ML/MIN 78 ML/MIN Total Protein 5.7 GM/DL Protein Corrected Calcium 8.2 MG/DL Microbiology Date/Time Source Procedure Growth Status 01/01/18 12:45 Fluid Peritoneal Fluid Gram Stain - Final Resulted 01/01/18 12:45 Fluid Peritoneal Fluid Body Fluid Culture Pending Resulted Imaging Last Impressions Chest X-Ray 01/01/18 0000 Signed Impressions: CONCLUSION: Patchy areas of parenchymal consolidation involving the lung bases bilateral ly. Abscess Drainage CT 01/01/18 0000 Signed Impressions: CONCLUSION: 1. Uncomplicated CT guided drainage with placement of 8 Danish locking pigtail drain. Abdomen/Pelvis CT 12/31/17 0000 Signed Impressions: CONCLUSION: 1. Approximately 3 cm abscess in the right lower quadrant adjacent to several loops of thickened bowel is relatively stable in size since December 19. There is so me surrounding inflammatory change. No free air or significant free fluid. 2. Increase in bibasilar lung consolidation could represent superimposed pneum onia. Physical Exam CONSTITUTIONAL/GENERAL: This is an adequately nourished patient, in no apparent distress. TUBES/LINES/DRAINS: SKIN: No jaundice, rashes, or lesions. Skin temperature appropriate. Not diaphoretic. EYES: Pupils equal and round and reactive. Extraocular motions intact. No scleral icterus. No injection or drainage. Fundi not examined. CARDIOVASCULAR: Regular rate and rhythm without murmurs, gallops, or rubs. No JVD. Peripheral pulses symmetric. RESPIRATORY/CHEST: Symmetric, unlabored respirations. Clear to auscultation. Breath sounds equal bilaterally. No wheezes, rales, or rhonchi. GASTROINTESTINAL: Abdomen soft, very tender diffusely especially in RLQ, nondistended.Drain in place No hepato-splenomegaly, or palpable masses. No guarding. Bowel sounds present. GENITOURINARY: Without palpable bladder distension. MUSCULOSKELETAL: Extremities without clubbing, cyanosis, or edema. No joint tenderness or effusion noted. No calf tenderness. No mottling or clubbing. NEUROLOGICAL: Awake and alert. Motor and sensory grossly within normal limits. Follows commands. Clear speech. Moves all extremities. PSYCHIATRIC: No obvious anxiety/depression. no apparent hallucinations or other psychotic thought process. Assessment & Plan Remarks Ted's osbaldo Intraabdominal abscess sp IR guided drainage Severe pain today: Leukocytosis: better cont zosyn fu WBC f/u clinically fu clx; anticipate transition to po abx upon dc unless MDRO with no oral options dw residents team Terese Mitchell MD Jan 02, 2018 10:04
[2018-01-02] MEDS: CALCIUM CARBONATE 500 MG CHEWABLE TAB CHEW SCH ×2 (10:55→21:26)
[2018-01-02 12:00] VITALS: BP 121/66; PULSE 63; RESP 18; TEMP 97.8; O2SAT 96
--- NOTE | 2018-01-02 13:05 | HHI.GIFU ---
Subjective Remarks Pt is resting in bed Family at bedside States some soreness around drain site Denies nausea, vomiting, abdominal pain Tolerating PO (Tania Layton) Objective Vitals I&O Vital Signs Date Time Temp Pulse Resp B/P (MAP) Pulse Ox O2 Delivery O2 Flow Rate FiO2 01/02/18 00:00 97.9 50 16 128/70 (89) 96 01/01/18 20:00 97.7 55 16 130/73 (92) 97 01/01/18 16:00 97.8 63 18 110/67 (81) 96 01/01/18 13:45 58 18 138/74 (95) 94 01/01/18 13:15 98.7 60 17 135/87 (103) 92 I/O 01/01/18 01/01/18 01/01/18 01/02/18 01/02/18 01/02/18 07:00 15:00 23:00 07:00 15:00 23:00 Intake Total 1000 ml 463 ml 300 ml 100 ml 250 ml Output Total 5 ml Balance 1000 ml 463 ml 295 ml 100 ml 250 ml IV Total 1000 ml 463 ml 300 ml 100 ml 250 ml Output Drainage Total 5 ml # Voids 4 2 Laboratory Laboratory Tests Test 01/02/18 06:27 White Blood Count 13.5 Red Blood Count 3.52 Hemoglobin 9.4 Hematocrit 28.2 Mean Corpuscular Volume 80.1 Mean Corpuscular Hemoglobin 26.7 Mean Corpuscular Hemoglobin Concent 33.4 Red Cell Distribution Width 15.2 Platelet Count 360 Mean Platelet Volume 8.3 Blood Urea Nitrogen 6 Creatinine 0.80 Random Glucose 89 Total Protein 5.7 Calcium Level 7.4 Sodium Level 141 Potassium Level 3.8 Chloride Level 109 Carbon Dioxide Level 24.0 Anion Gap 8 Estimat Glomerular Filtration Rate 78 Protein Corrected Calcium 8.2 Date/Time Source Procedure Growth Status 12/29/17 19:55 Blood Peripheral Aerobic Blood Culture - Preliminary NO GROWTH IN 4 DAYS Resulted 12/29/17 19:55 Blood Peripheral Anaerobic Blood Culture - Preliminary NO GROWTH IN 4 DAYS Resulted 01/01/18 12:45 Fluid Peritoneal Fluid Gram Stain - Final Resulted 01/01/18 12:45 Fluid Peritoneal Fluid Body Fluid Culture Pending Resulted 12/30/17 08:06 Stool Stool Stool Occult Blood (ÁLVARO) - Final HEMOCCULT NEGATIVE Complete Imaging Last Impressions Chest X-Ray 01/01/18 0000 Signed Impressions: CONCLUSION: Patchy areas of parenchymal consolidation involving the lung bases bilateral ly. Abscess Drainage CT 01/01/18 0000 Signed Impressions: CONCLUSION: 1. Uncomplicated CT guided drainage with placement of 8 Macedonian locking pigtail drain. Abdomen/Pelvis CT 12/31/17 0000 Signed Impressions: CONCLUSION: 1. Approximately 3 cm abscess in the right lower quadrant adjacent to several loops of thickened bowel is relatively stable in size since December 19. There is so me surrounding inflammatory change. No free air or significant free fluid. 2. Increase in bibasilar lung consolidation could represent superimposed pneum onia. Physical Exam HEENT: Normocephalic; atraumatic CHEST: Even/unlabored CARDIAC: RRR ABDOMEN: Obese, soft, tenderness around drain site, bowel sounds active EXTREMITIES: No clubbing, cyanosis, or edema. SKIN: Normal; no rash; no jaundice. [employer]: Alert and oriented times three. (Tania Layton) Assessment and Plan Plan Assessment: - Crohns disease- Diagnosed at 25 years old, S/P partial small bowel and partial colon resection at 27 years old. Has been on multiple medications for Crohns over the years specifically mentioned Pentasa, found it difficult to comply with taking multiple pills a day. On Humira 6-7 years ago for 7 months with good relief of symptoms, unfortunately lost her insurance and was unable to continue treatment Last colonoscopy 7 years ago, states inflammation at the anastomosis site. CT abdomen and pelvis W IV contrast (12/19) Focal abscess is almost 3.1 cm in size adjacent to loops of bowel right lower quadrant with haziness of the adjacent mesenteric fat not present on the prior exam from 2016 and appears to be outside of the loops of bowel. Small bowel follow through --> Status post small bowel and colonic resection with no gross extravasation identified. If further evaluation is clinically indicated then a repeat pelvic CT with oral contrast would be the most sensitive detection method. Pt reports the pain became unbearable in her abdomen and she was unable to walk so she was sent back to the ER. Repeat CT reveals abscess is 3 cm, stable in size since previous exam on December 19. IR did drain abscess and placed accordion drain. Pt was seen outpatient by our service after discharge, recommended biologics when acute infection resolved. Hepatitis B negative and TB negative done on 12/21/17 Pt was also seen by colorectal during previous admission, Dr. Martinez, last note stated no surgery recommended due to previous surgery and risk for short gut syndrome (01/02) Pt reports some soreness around drain site, but overall improving pain. Denies nausea, vomiting, abdominal pain. Remains Zosyn. Plan: Monitor accordion drain output from abscess Continue Zosyn Supportive care Biologics to be started outpatient when infection resolves GI will sign off, please reconsult as needed Have pt follow up with GI after DC Pt has been seen and examined by myself and Dr. Mcgregor and this note is written on his behalf (Tania Layton) Physician Comments Agree with the plan as above. Nothing to add at this time. Please notify us if needed. Will need out patient follow up for possible restarting biological agents. (Elvia Mcgregor MD) Tania Layton Jan 02, 2018 13:05 Elvia Mcgregor MD Jan 02, 2018 23:13
[2018-01-02 16:00] VITALS: BP 128/67; PULSE 58; RESP 16; TEMP 97.8; O2SAT 93
[2018-01-02 20:00] VITALS: BP 137/87; PULSE 62; RESP 16; TEMP 97.7; O2SAT 97
[2018-01-02] MEDS: FAMOTIDINE 20 MG TAB PO SCH (21:26)
[2018-01-02] MEDS ORDERED: PHARMACY ORDERED LAB ONE (22:45)
[2018-01-03] VITALS: BP 117/59; PULSE 52; RESP 16; TEMP 98; O2SAT 99
[2018-01-03] MEDS: PIPERACIL-TAZO 4.5 GM PREMIX 100 ML IV SCH ×4 (02:07→22:05)
[2018-01-03] MEDS: NS + KCL 20 MEQ INJ 1,000 ML IV SCH ×3 (02:10→14:09)
[2018-01-03] MEDS: HEPARIN SODIUM - SQ 10,000 UNITS/ML VIAL SQ SCH ×3 (05:30→22:14)
[2018-01-03] MEDS: SODIUM CHLORIDE 0.9% 10 ML VIAL IRRIGATION SCH ×3 (05:48→22:00)
[2018-01-03 08:00] VITALS: BP 137/79; PULSE 51; RESP 18; TEMP 98; O2SAT 94
[2018-01-03] MEDS: predniSONE 20 MG TAB PO SCH (08:01)
[2018-01-03] MEDS: CALCIUM CARBONATE 500 MG CHEWABLE TAB CHEW SCH ×2 (08:01→22:05)
[2018-01-03] MEDS: FAMOTIDINE 20 MG TAB PO SCH ×2 (08:01→22:04)
[2018-01-03] MEDS: SODIUM CHLORIDE 0.9% FLUSH 10 ML FLUSH IV FLUSH SCH ×2 (08:01→22:05)
[2018-01-03 12:00] VITALS: BP 117/62; PULSE 64; RESP 18; TEMP 98.7; O2SAT 97
[2018-01-03 13:17] LABS: HEMATOCRIT 32.7 % (35.0-46.0); HEMOGLOBIN 10.7 GM/DL (11.6-15.3); MEAN CELL VOLUME 81.1 FL (80.0-100.0); MEAN CORPUSCULAR HEMOGLOBIN 26.6 PG (27.0-34.0); MEAN CORPUSCULAR HGB CONC 32.8 % (32.0-36.0); MEAN PLATELET VOLUME 8.6 FL (7.0-11.0); PLATELET COUNT 413 TH/MM3 (150-450); RED BLOOD COUNT 4.03 MIL/MM3 (4.00-5.30); RED CELL DISTRIBUTION WIDTH 15.3 % (11.6-17.2); WHITE BLOOD COUNT 19.9 TH/MM3 (4.0-11.0)
[2018-01-03 13:32] LABS: BICARBONATE 23.1 MEQ/L (21.0-32.0); CALCIUM 8.3 MG/DL (8.5-10.1); CREATININE 1.03 MG/DL (0.50-1.00)
[2018-01-03] MEDS: ACETAMINOPHEN/HYDROcodone 325 MG/7.5 MG TAB PO PRN ×2 (14:07→22:04)
[2018-01-03 16:00] VITALS: BP 140/63; PULSE 59; RESP 18; TEMP 97.4; O2SAT 96
[2018-01-03] MEDS ORDERED: FLUCONAZOLE 400 MG PREMIX BAG 400 ML IV SCH (17:15)
--- NOTE | 2018-01-03 17:15 | HHI.FPPN ---
Subjective Remarks Patient was seen and evaluated this morning. Her pain is better controlled today. Patient denies chest pain, heart palpitations, shortness of breath, nausea/vomiting, diarrhea and constipation. She is passing gas and having bowel movements. All questions were answered. (Delmy Benson MD R1) Objective Vitals Vital Signs Date Time Temp Pulse Resp B/P (MAP) Pulse Ox O2 Delivery O2 Flow Rate FiO2 01/03/18 16:00 97.4 59 18 140/63 (88) 96 01/03/18 12:00 98.7 64 18 117/62 (80) 97 01/03/18 08:00 98.0 51 18 137/79 (98) 94 01/03/18 00:00 98.0 52 16 117/59 (78) 99 01/02/18 20:00 97.7 62 16 137/87 (104) 97 I/O 01/02/18 01/02/18 01/02/18 01/03/18 01/03/18 01/03/18 07:00 15:00 23:00 07:00 15:00 23:00 Intake Total 100 ml 250 ml 940 ml 1100 ml 1100 ml Balance 100 ml 250 ml 940 ml 1100 ml 1100 ml Intake Oral 840 ml IV Total 100 ml 250 ml 100 ml 1100 ml 1100 ml # Voids 2 6 2 # Bowel Movements 1 (Delmy Benson MD R1) Result Diagram: 01/03/18 1210 01/03/18 1210 Imaging Last Impressions Chest X-Ray 01/01/18 0000 Signed Impressions: CONCLUSION: Patchy areas of parenchymal consolidation involving the lung bases bilateral ly. Abscess Drainage CT 01/01/18 0000 Signed Impressions: CONCLUSION: 1. Uncomplicated CT guided drainage with placement of 8 English locking pigtail drain. Abdomen/Pelvis CT 12/31/17 0000 Signed Impressions: CONCLUSION: 1. Approximately 3 cm abscess in the right lower quadrant adjacent to several loops of thickened bowel is relatively stable in size since December 19. There is so me surrounding inflammatory change. No free air or significant free fluid. 2. Increase in bibasilar lung consolidation could represent superimposed pneum onia. Objective Remarks GENERAL: This is a well-nourished, well-developed patient, in no apparent distress. SKIN: No rashes, ecchymoses or lesions. Cool and dry. HEAD: Atraumatic. Normocephalic. EYES: Pupils equal round. Extraocular motions intact. No scleral icterus. No injection or drainage. ENT: Nose without bleeding, purulent drainage or septal hematoma. Airway patent. NECK: Trachea midline. No JVD or lymphadenopathy. Supple. CARDIOVASCULAR: Regular rate and rhythm without murmurs, gallops, or rubs. RESPIRATORY: Breath sounds equal bilaterally. Bibasilar crackles appreciated. No wheezes, rales, or rhonchi. GASTROINTESTINAL: Positive bowel sounds. Abdomen soft, non-distended. Moderately tender to palpation, especially in RUQ near the umbilicus. Mass noted in same area. Accordion drain in placed; clean, dry, no active bleeding at site. [place] with serosanguineous fluid <50cc without purulence. MUSCULOSKELETAL: Extremities without clubbing, cyanosis, or edema. No calf tenderness. NEUROLOGICAL: Awake and alert. Oriented x3 Procedures Drainage of intra-abdominal abscess on 01/01. Medications and IVs Current Medications Medications (Trade) Dose Ordered Sig/Kindra Route Start Time Stop Time Status Last Admin (NS Flush) 2 ml UNSCH PRN IV FLUSH 12/29/17 22:15 (NS Flush) 2 ml BID IV FLUSH 12/29/17 22:15 01/02/18 08:49 (Zofran Odt) 4 mg Q6H PRN PO 12/29/17 22:15 (Narcan Inj) 0.4 mg UNSCH PRN IV PUSH 12/29/17 22:15 (Deltasone) 40 mg DAILY PO 12/29/17 22:45 01/03/18 08:01 ([place] 5-325 Mg) 1 tab Q4H PRN PO 12/29/17 23:00 ([place] 7.5-325 Mg) 1 tab Q4H PRN PO 12/29/17 23:00 01/03/18 14:07 (Morphine Inj) 4 mg Q3H PRN IV PUSH 12/29/17 23:00 12/31/17 11:58 Piperacillin Sod/ Tazobactam Sod 100 ml @ 200 mls/hr Q6H IV 12/30/17 02:50 01/03/18 14:07 Potassium Chloride/Sodium Chloride 1,000 ml @ 125 mls/hr Q8H IV 12/29/17 23:15 01/03/18 14:09 (Tylenol) 650 mg Q4H PRN PO 12/30/17 13:15 (Heparin Inj) 5,000 units Q8H SQ 12/30/17 13:30 01/03/18 14:00 (NS Inj) 10 ml Q8HR IRRIGATION 01/01/18 14:00 01/03/18 05:48 (Tums Chew) 500 mg Q12HR CHEW 01/02/18 10:00 01/03/18 08:01 (Pepcid) 20 mg BID PO 01/02/18 21:00 01/03/18 08:01 (Delmy Benson MD R1) Urinary Catheter: No (Delmy Benson MD R1) Vascular Central Line Catheter: No (Delmy Benson MD R1) A/P Assessment and Plan Patient is a 42 year old female with a past medical history significant of Crohn 's Disease, admitted for sepsis secondary to worsening intraabdominal abscess. Discharge Planning Pending clinical improvement. (Delmy Benson MD R1) Problem List: (1) Intra-abdominal abscess ICD Codes: K65.1 - Peritoneal abscess Status: Acute Plan: Per ED report, patient had [facility] scan done at [facility] showing a growing abdominal abscess measuring 5.73.3. CT scan on 12-18-17 demonstrated right lower quadrant abscess, measuring 3.1 cm. Per IR and CRS, small abscess was not amenable to drainage or surgery. 01/03: Patient reports better pain control today. She is eating, passing gas and has had bowel movements. Labs on admission: * WBC 21.2. * Lactic acid 1.7 -> 2.7 -> 1.2. Labs 01/03: * WBC 19.9. Microbiology: * Hemoccult negative. * Blood cultures x2: no growth to date. * Body Fluid: Sheryl Albicans. Imaging: * CT Abdomen/Pelvis 12/31: Approximately 3 cm abscess in the right lower quadrant adjacent to several loops of thickened bowel is relatively stable in size since December 19. There is some surrounding inflammatory change. No free air or significant free fluid. Increase in bibasilar lung consolidation could represent superimposed pneumonia. Medications: * Patient received 1x dose of Zosyn in the ED. * Continue Zosyn 4.5 g IV q6hr. * Fluconazole 800mg IV ONCE. * Fluconazole 400mg IV q24hr. * Tylenol 650mg PO PRN pain 1-2. * [place] 5mg PO q4hr PRN pain 3-5. * [place] 7.5 mg PO q4hr PRN pain 6-10. * Morphine 4mg IV q3h PRN for breakthrough pain. Consults: * GI: Signed off. Crohn's management as outpatient. * General surgery: Signed off. No surgery at this time. * ID: fu WBC. f/u clinically. IR drainage. * IR: Drainage of abscess on 01/01/[address] with accord[address] drain in place. (2) Sepsis ICD Codes: A41.9 - Sepsis, unspecified organism Status: Resolved Plan: Resolved as of 12/30. On admission, patient met sepsis criteria due to tachycardia and leukocytosis with known source of infection. * See plan above. . (3) Crohns disease ICD Codes: K50.90 - Crohn's disease, unspecified, without complications Status: Chronic Plan: Patient with history of Crohn's disease. She is currently not on maintenance medication. Microbiology: * Hemoccult negative. Medications: * Continue prednisone 40 mg PO daily. * Continue famotidine 20 mg IV push q12h. Consults: * GI: Signed off. Crohn's management as outpatient. (4) Atelectasis ICD Codes: J98.11 - Atelectasis Status: Acute Plan: Patient denies chest pain, cough, URI symptoms. CT on 12/31 with suspicion for pneumonia. Clinically, atelectasis more likely. 01/03: Patient with sneezing today. Repeat CXR. Imaging: * CT Abdomen/Pelvis 12/31: Approximately 3 cm abscess in the right lower quadrant adjacent to several loops of thickened bowel is relatively stable in size since December 19. There is some surrounding inflammatory change. No free air or significant free fluid. Increase in bibasilar lung consolidation could represent superimposed pneumonia. * CXR 01/01: Patchy consolidations bilaterally. * CXR 01/03: Pending. Orders: * Incentive spirometry. (5) Hypokalemia ICD Codes: E87.6 - Hypokalemia Status: Resolved Plan: Resolved as of 12/30. On admission, Potassium of 3.2. Medications: * NS + KCl 20meq at 60 ml/hr. * K-Lyte Cl Eff 25mew PO ONCE. (6) Nutrition, metabolism, and development symptoms ICD Codes: R63.8 - Other symptoms and signs concerning food and fluid intake Plan: Diet: * Regular as tolerated. Fluids: * NS + 20meq KCl 60 mls/hr. Electrolytes: * Monitor and replete as necessary. * Hypocalcemia - Started Calcium Carbonate 500mg BID. DVT prophylaxis: * Heparin 5,000 units SQ q8hr. (Delmy Benson MD R1) Problem List: (1) Intra-abdominal abscess ICD Codes: K65.1 - Peritoneal abscess Status: Acute Plan: Per ED report, patient had CT scan done at [facility] showing a growing abdominal abscess measuring 5.73.3. CT scan on 12-18-17 demonstrated right lower quadrant abscess, measuring 3.1 cm. Per IR and CRS, small abscess was not amenable to drainage or surgery. 01/03: Patient reports better pain control today. She is eating, passing gas and has had bowel movements. Labs on admission: * WBC 21.2. * Lactic acid 1.7 -> 2.7 -> 1.2. Labs 01/03: * WBC 19.9. Microbiology: * Hemoccult negative. * Blood cultures x2: no growth to date. * Body Fluid: Sheryl Albicans. Imaging: * CT Abdomen/Pelvis 12/31: Approximately 3 cm abscess in the right lower quadrant adjacent to several loops of thickened bowel is relatively stable in size since December 19. There is some surrounding inflammatory change. No free air or significant free fluid. Increase in bibasilar lung consolidation could represent superimposed pneumonia. Medications: * Patient received 1x dose of Zosyn in the ED. * Continue Zosyn 4.5 g IV q6hr. * Fluconazole 800mg IV ONCE. * Fluconazole 400mg IV q24hr. * Tylenol 650mg PO PRN pain 1-2. * [place] 5mg PO q4hr PRN pain 3-5. * [place] 7.5 mg PO q4hr PRN pain 6-10. * Morphine 4mg IV q3h PRN for breakthrough pain. Consults: * GI: Signed off. Crohn's management as outpatient. * General surgery: Signed off. No surgery at this time. * ID: fu WBC. f/u clinically. IR drainage. * IR: Drainage of abscess on 01/01/18 with [address] drain in place. (2) Sepsis ICD Codes: A41.9 - Sepsis, unspecified organism Status: Resolved Plan: Resolved as of 12/30. On admission, patient met sepsis criteria due to tachycardia and leukocytosis with known source of infection. * See plan above. . (3) Crohns disease ICD Codes: K50.90 - Crohn's disease, unspecified, without complications Status: Chronic Plan: Patient with history of Crohn's disease. She is currently not on maintenance medication. Microbiology: * Hemoccult negative. Medications: * Continue prednisone 40 mg PO daily. * Continue famotidine 20 mg IV push q12h. Consults: * GI: Signed off. Crohn's management as outpatient. (4) Atelectasis ICD Codes: J98.11 - Atelectasis Status: Acute Plan: Patient denies chest pain, cough, URI symptoms. CT on 12/31 with suspicion for pneumonia. Clinically, atelectasis more likely. 01/03: Patient with sneezing today. Repeat CXR. Imaging: * CT Abdomen/Pelvis 12/31: Approximately 3 cm abscess in the right lower quadrant adjacent to several loops of thickened bowel is relatively stable in size since December 19. There is some surrounding inflammatory change. No free air or significant free fluid. Increase in bibasilar lung consolidation could represent superimposed pneumonia. * CXR 01/01: Patchy consolidations bilaterally. * CXR 01/03: Pending. Orders: * Incentive spirometry. (5) Hypokalemia ICD Codes: E87.6 - Hypokalemia Status: Resolved Plan: Resolved as of 12/30. On admission, Potassium of 3.2. Medications: * NS + KCl 20meq at 60 ml/hr. * K-Lyte Cl Eff 25mew PO ONCE. (6) Nutrition, metabolism, and development symptoms ICD Codes: R63.8 - Other symptoms and signs concerning food and fluid intake Plan: Diet: * Regular as tolerated. Fluids: * NS + 20meq KCl 60 mls/hr. Electrolytes: * Monitor and replete as necessary. * Hypocalcemia - Started Calcium Carbonate 500mg BID. DVT prophylaxis: * Heparin 5,000 units SQ q8hr. See the residents documentation for details. I saw and evaluated the patient regarding the alba portions of this evaluation and agree with the residents findings and plans as written. Parts of this note were created using [employer] voice recognition software program. While efforts were made to correct any mistakes made by this software, some mistakes, errors, and omissions may remain in the final note that were not caught when the note was originally created. Plan of care was discussed and agreed upon with the patient as specifically documented in the above note. An opportunity to ask questions with explanation was provided. Patient voiced understanding on all information reviewed and discussed. (Jarod Plascencia MD) Delmy Benson MD R1 Jan 03, 2018 17:15 Jarod Plascencia MD Jan 04, 2018 12:10
[2018-01-03] MEDS ORDERED: FLUCONAZOLE 400 MG PREMIX BAG 400 ML IV ONE (17:45)
[2018-01-03] MEDS ORDERED: FLUCONAZOLE 400 MG PREMIX BAG 200 ML IV SCH (18:00)
--- NOTE | 2018-01-03 18:35 | RADRPT ---
EXAM DATE: 01/03/2018 6:33 PM EDT AGE/SEX: 42 years / Female INDICATIONS: Cough CLINICAL DATA: This is the patient's subsequent encounter. Patient reports that signs and symptoms h ave been present for 2 weeks and indicates a pain score of 6/10. MEDICAL/SURGICAL HISTORY: Gastroesophageal reflux disease. Crohn's disease. Colon resection. Appendectomy. Cholecystectomy. COMPARISON: [facility] [place], CHEST PA & LAT, 01/01/2018. . FINDINGS: Persistent mild bilateral perihilar and basilar infiltrates. No significant effusion. Cardiac contour s are unchanged. Thoracic skeleton is intact. CONCLUSION: Persistent infiltrates Electronically signed by: Dre Suresh MD 01/03/2018 6:34 PM EDT
[2018-01-03 20:00] VITALS: BP 131/61; PULSE 55; RESP 16; TEMP 97.9; O2SAT 97
[2018-01-04] VITALS: BP 135/62; PULSE 59; RESP 16; TEMP 98.1; O2SAT 98
[2018-01-04] MEDS: NS + KCL 20 MEQ INJ 1,000 ML IV SCH (01:17)
[2018-01-04] MEDS: ACETAMINOPHEN/HYDROcodone 325 MG/7.5 MG TAB PO PRN ×4 (02:05→21:37)
[2018-01-04] MEDS: PIPERACIL-TAZO 4.5 GM PREMIX 100 ML IV SCH ×3 (03:48→15:56)
[2018-01-04 04:00] VITALS: BP 130/65; PULSE 53; RESP 16; TEMP 98.7; O2SAT 94
[2018-01-04] MEDS: SODIUM CHLORIDE 0.9% 10 ML VIAL IRRIGATION SCH ×3 (06:00→21:38)
[2018-01-04] MEDS: HEPARIN SODIUM - SQ 10,000 UNITS/ML VIAL SQ SCH ×3 (06:07→21:38)
[2018-01-04 06:23] LABS: BASOPHIL # 0.1 TH/MM3 (0-0.2); BASOPHIL % 0.4 % (0.0-2.0); EOSINOPHIL # 0.2 TH/MM3 (0-0.4); HEMATOCRIT 29.4 % (35.0-46.0); HEMOGLOBIN 9.8 GM/DL (11.6-15.3); LYMPHOCYTE # 3.1 TH/MM3 (1.0-4.8); MEAN CELL VOLUME 80.1 FL (80.0-100.0); MEAN CORPUSCULAR HEMOGLOBIN 26.7 PG (27.0-34.0); MEAN CORPUSCULAR HGB CONC 33.3 % (32.0-36.0); MEAN PLATELET VOLUME 8.1 FL (7.0-11.0); MONO % 5.9 % (0.0-8.0); MONOCYTE # 1.1 TH/MM3 (0-0.9); NEUT % 75.7 % (16.0-70.0); PLATELET COUNT 397 TH/MM3 (150-450); RED BLOOD COUNT 3.67 MIL/MM3 (4.00-5.30); WHITE BLOOD COUNT 18.4 TH/MM3 (4.0-11.0)
[2018-01-04 06:35] LABS: ALBUMIN 2.2 GM/DL (3.4-5.0); ALT (GPT) 14 U/L (10-53); AST (GOT) 8 U/L (15-37); BICARBONATE 26.1 MEQ/L (21.0-32.0); BLOOD UREA NITROGEN 10 MG/DL (7-18); CALCIUM 8.1 MG/DL (8.5-10.1); CHLORIDE 104 MEQ/L (98-107); CREATININE 0.95 MG/DL (0.50-1.00); GLOMERULAR FILTRATION RATE 64 ML/MIN (>89); GLUCOSE,RANDOM 68 MG/DL (74-106); SODIUM (NA) 141 MEQ/L (136-145)
[2018-01-04 06:36] LABS: ALKALINE PHOSPHATASE 63 U/L (45-117); TOTAL BILIRUBIN ADULT 0.2 MG/DL (0.2-1.0); TOTAL PROTEIN 5.8 GM/DL (6.4-8.2)
[2018-01-04] MEDS: predniSONE 20 MG TAB PO SCH (07:53)
[2018-01-04] MEDS: CALCIUM CARBONATE 500 MG CHEWABLE TAB CHEW SCH ×2 (07:54→21:37)
[2018-01-04] MEDS: FAMOTIDINE 20 MG TAB PO SCH ×2 (07:54→21:36)
[2018-01-04] MEDS: SODIUM CHLORIDE 0.9% FLUSH 10 ML FLUSH IV FLUSH SCH ×2 (07:54→21:37)
[2018-01-04 08:00] VITALS: BP 141/75; PULSE 52; RESP 18; TEMP 98.5; O2SAT 95
--- NOTE | 2018-01-04 10:58 | HHI.FPPN ---
Subjective Remarks Patient was seen and evaluated this morning. She reports feeling better overall. She complains of some lower back pain. Patient denies chest and abdominal pain, heart palpitations, shortness of breath, nausea/vomiting, diarrhea and constipation. She denies cough or URI symptoms. Per patient, she was seen by IR yesterday. Plan for CT Abdomen today. All questions were answered. (Delmy Benson MD R1) Objective Vitals Vital Signs Date Time Temp Pulse Resp B/P (MAP) Pulse Ox O2 Delivery O2 Flow Rate FiO2 01/04/18 08:00 98.5 52 18 141/75 (97) 95 01/04/18 04:00 98.7 53 16 130/65 (86) 94 01/04/18 03:05 19 01/04/18 00:00 98.1 59 16 135/62 (86) 98 01/03/18 20:00 97.9 55 16 131/61 (84) 97 01/03/18 16:00 97.4 59 18 140/63 (88) 96 01/03/18 12:00 98.7 64 18 117/62 (80) 97 I/O 01/03/18 01/03/18 01/03/18 01/04/18 01/04/18 01/04/18 07:00 15:00 23:00 07:00 15:00 23:00 Intake Total 1100 ml 1100 ml 1200 ml 480 ml Output Total 25 ml 20 ml Balance 1100 ml 1100 ml 1175 ml 460 ml Intake Oral 1200 ml 480 ml IV Total 1100 ml 1100 ml Output Drainage Total 25 ml 20 ml # Voids 2 4 5 # Bowel Movements 1 0 (Delmy Benson MD R1) Result Diagram: 01/04/18 0538 01/04/18 0538 Imaging Last Impressions Chest X-Ray 01/03/18 0000 Signed Impressions: CONCLUSION: Persistent infiltrates Abscess Drainage CT 01/01/18 0000 Signed Impressions: CONCLUSION: 1. Uncomplicated CT guided drainage with placement of 8 Niuean locking pigtail drain. Abdomen/Pelvis CT 12/31/17 0000 Signed Impressions: CONCLUSION: 1. Approximately 3 cm abscess in the right lower quadrant adjacent to several loops of thickened bowel is relatively stable in size since December 19. There is so me surrounding inflammatory change. No free air or significant free fluid. 2. Increase in bibasilar lung consolidation could represent superimposed pneum onia. Objective Remarks GENERAL: This is a well-nourished, well-developed patient, in no apparent distress. SKIN: No rashes, ecchymoses or lesions. Cool and dry. HEAD: Atraumatic. Normocephalic. EYES: Pupils equal round. Extraocular motions intact. No scleral icterus. No injection or drainage. ENT: Nose without bleeding, purulent drainage or septal hematoma. Airway patent. NECK: Trachea midline. No JVD or lymphadenopathy. Supple. CARDIOVASCULAR: Regular rate and rhythm without murmurs, gallops, or rubs. RESPIRATORY: Breath sounds equal bilaterally. Bibasilar crackles appreciated. No wheezes, rales, or rhonchi. GASTROINTESTINAL: Positive bowel sounds. Abdomen soft, non-distended. Moderately tender to palpation, especially in RUQ near the umbilicus. Mass noted in same area. Accordion drain in placed; clean, dry, no active bleeding at site. Sunray with serosanguineous fluid without purulence; 45cc output recorded over last 24hrs. MUSCULOSKELETAL: Extremities without clubbing, cyanosis, or edema. No calf tenderness. NEUROLOGICAL: Awake and alert. Oriented x3 Procedures Drainage of intra-abdominal abscess on 01/01. Medications and IVs Current Medications Medications (Trade) Dose Ordered Sig/Kindra Route Start Time Stop Time Status Last Admin (NS Flush) 2 ml UNSCH PRN IV FLUSH 12/29/17 22:15 (NS Flush) 2 ml BID IV FLUSH 12/29/17 22:15 01/03/18 22:05 (Zofran Odt) 4 mg Q6H PRN PO 12/29/17 22:15 (Narcan Inj) 0.4 mg UNSCH PRN IV PUSH 12/29/17 22:15 (Deltasone) 40 mg DAILY PO 12/29/17 22:45 01/04/18 07:53 ([place] 5-325 Mg) 1 tab Q4H PRN PO 12/29/17 23:00 ([place] 7.5-325 Mg) 1 tab Q4H PRN PO 12/29/17 23:00 01/04/18 06:07 (Morphine Inj) 4 mg Q3H PRN IV PUSH 12/29/17 23:00 12/31/17 11:58 Piperacillin Sod/ Tazobactam Sod 100 ml @ 200 mls/hr Q6H IV 12/30/17 02:50 01/04/18 07:53 Potassium Chloride/Sodium Chloride 1,000 ml @ 60 mls/hr [id number] IV 12/29/17 23:15 01/04/18 01:17 (Tylenol) 650 mg Q4H PRN PO 12/30/17 13:15 (Heparin Inj) 5,000 units Q8H SQ 12/30/17 13:30 01/04/18 06:07 (NS Inj) 10 ml Q8HR IRRIGATION 01/01/18 14:00 01/04/18 06:00 (Tums Chew) 500 mg Q12HR CHEW 01/02/18 10:00 01/04/18 07:54 (Pepcid) 20 mg BID PO 01/02/18 21:00 01/04/18 07:54 Fluconazole/ Sodium Chloride 200 ml @ 100 mls/hr Q24H IV 01/04/18 18:00 (Delmy Benson MD R1) Urinary Catheter: No (Delmy Benson MD R1) Vascular Central Line Catheter: No (Delmy Benson MD R1) A/P Assessment and Plan Patient is a 42 year old female with a past medical history significant of Crohn 's Disease, admitted for sepsis secondary to worsening intraabdominal abscess. Discharge Planning Pending clinical improvement. (Delmy Benson MD R1) Problem List: (1) Intra-abdominal abscess ICD Codes: K65.1 - Peritoneal abscess Status: Acute Plan: Per ED report, [facility] showing a growing abdominal abscess measuring 5.73.3. CT scan on 12-18-17 demonstrated right lower quadrant abscess, measuring 3.1 cm. Per IR and CRS, small abscess was not amenable to drainage or surgery. 01/04: Patient reports better pain control today. She is eating, passing gas and continues to have bowel movements. Labs on admission: * WBC 21.2. * Lactic acid 1.7 -> 2.7 -> 1.2. Labs 01/04: * WBC 18.4. Microbiology: * Hemoccult negative. * Blood cultures x2: no growth to date. * Body Fluid: Sheryl Albicans. Imaging: * CT Abdomen/Pelvis 12/31: Approximately 3 cm abscess in the right lower quadrant adjacent to several loops of thickened bowel is relatively stable in size since December 19. There is some surrounding inflammatory change. No free air or significant free fluid. Increase in bibasilar lung consolidation could represent superimposed pneumonia. Medications: * Patient received 1x dose of Zosyn in the ED. * Continue Zosyn 4.5 g IV q6hr. * Fluconazole 800mg IV ONCE yesterday. * Fluconazole 400mg IV q24hr. * Tylenol 650mg PO PRN pain 1-2. * [place] 5mg PO q4hr PRN pain 3-5. * [place] 7.5 mg PO q4hr PRN pain 6-10. * Morphine 4mg IV q3h PRN for breakthrough pain. Consults: * GI: Signed off. Crohn's management as outpatient. * General surgery: Signed off. No surgery at this time. * ID: fu WBC. f/u clinically. IR drainage. * IR: Drainage of abscess on 01/01/[address] with accord[address] drain in place. (2) Sepsis ICD Codes: A41.9 - Sepsis, unspecified organism Status: Resolved Plan: Resolved as of 12/30. On admission, patient met sepsis criteria due to tachycardia and leukocytosis with known source of infection. * See plan above. (3) Crohns disease ICD Codes: K50.90 - Crohn's disease, unspecified, without complications Status: Chronic Plan: Patient with history of Crohn's disease. She is currently not on maintenance medication. Microbiology: * Hemoccult negative. Medications: * Continue prednisone 40 mg PO daily. * Continue famotidine 20 mg IV push q12h. Consults: * GI: Signed off. Crohn's management as outpatient. (4) Atelectasis ICD Codes: J98.11 - Atelectasis Status: Acute Plan: Patient denies chest pain, cough, URI symptoms. CT on 12/31 with suspicion for pneumonia. Clinically, atelectasis more likely. 01/04: Patient without chest pain, shortness of breath or URI symptoms. Afebrile. PE findings suggest atelectasis. Imaging: * CT Abdomen/Pelvis 12/31: Approximately 3 cm abscess in the right lower quadrant adjacent to several loops of thickened bowel is relatively stable in size since December 19. There is some surrounding inflammatory change. No free air or significant free fluid. Increase in bibasilar lung consolidation could represent superimposed pneumonia. * CXR 01/01: Patchy consolidations bilaterally. * CXR 01/03: Persistent infiltrates. Orders: * Incentive spirometry. (5) Hypokalemia ICD Codes: E87.6 - Hypokalemia Status: Resolved Plan: Resolved as of 12/30. On admission, Potassium of 3.2. Medications: * NS + KCl 20meq at 60 ml/hr. * K-Lyte Cl Eff 25mew PO ONCE. (6) Nutrition, metabolism, and development symptoms ICD Codes: R63.8 - Other symptoms and signs concerning food and fluid intake Plan: Diet: * Regular as tolerated. Fluids: * NS + 20meq KCl 60 mls/hr. Electrolytes: * Monitor and replete as necessary. * Hypocalcemia - Started Calcium Carbonate 500mg BID. DVT prophylaxis: * Heparin 5,000 units SQ q8hr. (Delmy Benson MD R1) Problem List: (1) Intra-abdominal abscess ICD Codes: K65.1 - Peritoneal abscess Status: Acute Plan: Per ED report, patient had [facility] scan done at [facility] showing a growing abdominal abscess measuring 5.73.3. CT scan on 12-18-17 demonstrated right lower quadrant abscess, measuring 3.1 cm. Per IR and CRS, small abscess was not amenable to drainage or surgery. 01/04: Patient reports better pain control today. She is eating, passing gas and continues to have bowel movements. Labs on admission: * WBC 21.2. * Lactic acid 1.7 -> 2.7 -> 1.2. Labs 01/04: * WBC 18.4. Microbiology: * Hemoccult negative. * Blood cultures x2: no growth to date. * Body Fluid: Sheryl Albicans. Imaging: * CT Abdomen/Pelvis 12/31: Approximately 3 cm abscess in the right lower quadrant adjacent to several loops of thickened bowel is relatively stable in size since December 19. There is some surrounding inflammatory change. No free air or significant free fluid. Increase in bibasilar lung consolidation could represent superimposed pneumonia. Medications: * Patient received 1x dose of Zosyn in the ED. * Continue Zosyn 4.5 g IV q6hr. * Fluconazole 800mg IV ONCE yesterday. * Fluconazole 400mg IV q24hr. * Tylenol 650mg PO PRN pain 1-2. * [place] 5mg PO q4hr PRN pain 3-5. * [place] 7.5 mg PO q4hr PRN pain 6-10. * Morphine 4mg IV q3h PRN for breakthrough pain. Consults: * GI: Signed off. Crohn's management as outpatient. * General surgery: Signed off. No surgery at this time. * ID: fu WBC. f/u clinically. IR drainage. * IR: Drainage of abscess on 01/01/[address] drain in place. (2) Sepsis ICD Codes: A41.9 - Sepsis, unspecified organism Status: Resolved Plan: Resolved as of 12/30. On admission, patient met sepsis criteria due to tachycardia and leukocytosis with known source of infection. * See plan above. (3) Crohns disease ICD Codes: K50.90 - Crohn's disease, unspecified, without complications Status: Chronic Plan: Patient with history of Crohn's disease. She is currently not on maintenance medication. Microbiology: * Hemoccult negative. Medications: * Continue prednisone 40 mg PO daily. * Continue famotidine 20 mg IV push q12h. Consults: * GI: Signed off. Crohn's management as outpatient. (4) Atelectasis ICD Codes: J98.11 - Atelectasis Status: Acute Plan: Patient denies chest pain, cough, URI symptoms. CT on 12/31 with suspicion for pneumonia. Clinically, atelectasis more likely. 01/04: Patient without chest pain, shortness of breath or URI symptoms. Afebrile. PE findings suggest atelectasis. Imaging: * CT Abdomen/Pelvis 12/31: Approximately 3 cm abscess in the right lower quadrant adjacent to several loops of thickened bowel is relatively stable in size since December 19. There is some surrounding inflammatory change. No free air or significant free fluid. Increase in bibasilar lung consolidation could represent superimposed pneumonia. * CXR 01/01: Patchy consolidations bilaterally. * CXR 01/03: Persistent infiltrates. Orders: * Incentive spirometry. (5) Hypokalemia ICD Codes: E87.6 - Hypokalemia Status: Resolved Plan: Resolved as of 12/30. On admission, Potassium of 3.2. Medications: * NS + KCl 20meq at 60 ml/hr. * K-Lyte Cl Eff 25mew PO ONCE. (6) Nutrition, metabolism, and development symptoms ICD Codes: R63.8 - Other symptoms and signs concerning food and fluid intake Plan: Diet: * Regular as tolerated. Fluids: * NS + 20meq KCl 60 mls/hr. Electrolytes: * Monitor and replete as necessary. * Hypocalcemia - Started Calcium Carbonate 500mg BID. DVT prophylaxis: * Heparin 5,000 units SQ q8hr. See the residents documentation for details. I saw and evaluated the patient regarding the alba portions of this evaluation and agree with the residents findings and plans as written. Parts of this note were created using [employer] voice recognition software program. While efforts were made to correct any mistakes made by this software, some mistakes, errors, and omissions may remain in the final note that were not caught when the note was originally created. Plan of care was discussed and agreed upon with the patient as specifically documented in the above note. An opportunity to ask questions with explanation was provided. Patient voiced understanding on all information reviewed and discussed. (Jarod Plascencia MD) Delmy Benson MD R1 Jan 04, 2018 10:58 Jarod Plascencia MD Jan 04, 2018 12:21
[2018-01-04 12:00] VITALS: BP 115/76; PULSE 61; RESP 17; TEMP 97.8; O2SAT 96
[2018-01-04 16:00] VITALS: BP 122/66; PULSE 59; RESP 18; TEMP 97.8; O2SAT 97
[2018-01-04] MEDS: FLUCONAZOLE 400 MG PREMIX BAG 200 ML IV SCH (17:46)
--- NOTE | 2018-01-04 18:32 | HHI.IDPN ---
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 Vital Signs Date Time Temp Pulse Resp B/P (MAP) Pulse Ox O2 Delivery O2 Flow Rate FiO2 01/04/18 16:00 97.8 59 18 122/66 (84) 97 01/04/18 12:00 97.8 61 17 115/76 (89) 96 01/04/18 08:00 98.5 52 18 141/75 (97) 95 01/04/18 04:00 98.7 53 16 130/65 (86) 94 01/04/18 03:05 19 01/04/18 00:00 98.1 59 16 135/62 (86) 98 01/03/18 20:00 97.9 55 16 131/61 (84) 97 01/04/18 01/04/18 01/05/18 15:00 23:00 07:00 Intake Total 500 ml Balance 500 ml Intake Oral 500 ml # Voids 10 # Bowel Movements 1 . Laboratory Tests Test 01/03/18 12:10 01/04/18 05:38 White Blood Count 19.9 TH/MM3 18.4 TH/MM3 Red Blood Count 4.03 MIL/MM3 3.67 MIL/MM3 Hemoglobin 10.7 GM/DL 9.8 GM/DL Hematocrit 32.7 % 29.4 % Mean Corpuscular Volume 81.1 FL 80.1 FL Mean Corpuscular Hemoglobin 26.6 PG 26.7 PG Mean Corpuscular Hemoglobin Concent 32.8 % 33.3 % Red Cell Distribution Width 15.3 % 15.0 % Platelet Count 413 TH/MM3 397 TH/MM3 Mean Platelet Volume 8.6 FL 8.1 FL Neutrophils (%) (Auto) 75.7 % Lymphocytes (%) (Auto) 17.0 % Monocytes (%) (Auto) 5.9 % Eosinophils (%) (Auto) 1.0 % Basophils (%) (Auto) 0.4 % Neutrophils # (Auto) 14.0 TH/MM3 Lymphocytes # (Auto) 3.1 TH/MM3 Monocytes # (Auto) 1.1 TH/MM3 Eosinophils # (Auto) 0.2 TH/MM3 Basophils # (Auto) 0.1 TH/MM3 CBC Comment DIFF FINAL Differential Comment Laboratory Tests Test 01/03/18 12:10 01/04/18 05:38 Blood Urea Nitrogen 6 MG/DL 10 MG/DL Creatinine 1.03 MG/DL 0.95 MG/DL Random Glucose 106 MG/DL 68 MG/DL Calcium Level 8.3 MG/DL 8.1 MG/DL Sodium Level 141 MEQ/L 141 MEQ/L Potassium Level 3.8 MEQ/L 3.8 MEQ/L Chloride Level 107 MEQ/L 104 MEQ/L Carbon Dioxide Level 23.1 MEQ/L 26.1 MEQ/L Anion Gap 11 MEQ/L 11 MEQ/L Estimat Glomerular Filtration Rate 58 ML/MIN 64 ML/MIN Total Protein 5.8 GM/DL Albumin 2.2 GM/DL Alkaline Phosphatase 63 U/L Aspartate Amino Transf (AST/SGOT) 8 U/L Alanine Aminotransferase (ALT/SGPT) 14 U/L Total Bilirubin 0.2 MG/DL Imaging Last Impressions Chest X-Ray 01/03/18 0000 Signed Impressions: CONCLUSION: Persistent infiltrates Abscess Drainage CT 01/01/18 0000 Signed Impressions: CONCLUSION: 1. Uncomplicated CT guided drainage with placement of 8 Danish locking pigtail drain. Abdomen/Pelvis CT 12/31/17 0000 Signed Impressions: CONCLUSION: 1. Approximately 3 cm abscess in the right lower quadrant adjacent to several loops of thickened bowel is relatively stable in size since December 19. There is so me surrounding inflammatory change. No free air or significant free fluid. 2. Increase in bibasilar lung consolidation could represent superimposed pneum onia. Physical Exam CONSTITUTIONAL/GENERAL: This is an adequately nourished patient, in no apparent distress. TUBES/LINES/DRAINS: SKIN: No jaundice, rashes, or lesions. Skin temperature appropriate. Not diaphoretic. EYES: Pupils equal and round and reactive. Extraocular motions intact. No scleral icterus. No injection or drainage. Fundi not examined. CARDIOVASCULAR: Regular rate and rhythm without murmurs, gallops, or rubs. No JVD. Peripheral pulses symmetric. RESPIRATORY/CHEST: Symmetric, unlabored respirations. Clear to auscultation. Breath sounds equal bilaterally. No wheezes, rales, or rhonchi. GASTROINTESTINAL: Abdomen soft, less tender, nondistended.Drain in place with purulent drainage No hepato-splenomegaly, or palpable masses. No guarding. Bowel sounds present. MUSCULOSKELETAL: Extremities without clubbing, cyanosis, or edema. No joint tenderness or effusion noted. No calf tenderness. No mottling or clubbing. NEUROLOGICAL: Awake and alert. Motor and sensory grossly within normal limits. Follows commands. Clear speech. Moves all extremities. PSYCHIATRIC: No obvious anxiety/depression. no apparent hallucinations or other psychotic thought process. Assessment & Plan Remarks Ted's osbaldo Intraabdominal abscess sp IR guided drainage Severe pain today: Leukocytosis: better dc zosyn cont fluconazol fu WBC f/u clinically fu clx; anticipate transition to po flucoazole dw residents team Terese Mitchell MD Jan 04, 2018 18:32
[2018-01-04 20:00] VITALS: BP 140/84; PULSE 55; RESP 18; TEMP 98.6; O2SAT 97
[2018-01-05] VITALS: BP 135/87; PULSE 54; RESP 18; TEMP 98.6; O2SAT 97
[2018-01-05] MEDS: ACETAMINOPHEN/HYDROcodone 325 MG/7.5 MG TAB PO PRN ×4 (06:00→21:56)
[2018-01-05] MEDS: SODIUM CHLORIDE 0.9% 10 ML VIAL IRRIGATION SCH ×3 (06:01→22:00)
[2018-01-05] MEDS: HEPARIN SODIUM - SQ 10,000 UNITS/ML VIAL SQ SCH ×3 (06:03→21:59)
[2018-01-05 08:00] VITALS: BP 144/76; PULSE 54; RESP 17; TEMP 98.9; O2SAT 94
[2018-01-05] MEDS: SODIUM CHLORIDE 0.9% FLUSH 10 ML FLUSH IV FLUSH SCH ×2 (09:00→22:02)
--- NOTE | 2018-01-05 09:15 | HHI.FPPN ---
Subjective Remarks Patient seen and examined this morning by medical team. No acute events overnight per nursing staff. Patient states that abdominal during continues to produce "bowel green" fluid, however was "much less" over the last 24 hours. She continues to have focal abdominal pain in the right upper quadrant with palpation, but states that her baseline pain has increased since admission. She states that now she is able to walk without pain which is a great improvement. She otherwise has no acute complaints and denies any fevers, chills, shortness of breath, chest pain, NVD, abdominal pain, or calf tenderness. (Luiz Arita MD R2) Objective Vitals Vital Signs Date Time Temp Pulse Resp B/P (MAP) Pulse Ox O2 Delivery O2 Flow Rate FiO2 01/05/18 08:00 98.9 54 17 144/76 (98) 94 01/05/18 00:00 98.6 54 18 135/87 (103) 97 01/04/18 20:00 98.6 55 18 140/84 (102) 97 01/04/18 16:00 97.8 59 18 122/66 (84) 97 01/04/18 12:00 97.8 61 17 115/76 (89) 96 I/O 01/04/18 01/04/18 01/04/18 01/05/18 01/05/18 01/05/18 07:00 15:00 23:00 07:00 15:00 23:00 Intake Total 480 ml 500 ml 240 ml Output Total 20 ml 0 ml Balance 460 ml 500 ml 240 ml 0 ml Intake Oral 480 ml 500 ml 240 ml Output Drainage Total 20 ml 0 ml # Voids 5 10 3 # Bowel Movements 0 1 0 (Luiz Arita MD R2) Result Diagram: 01/04/1838 01/04/18 05 Objective Remarks GENERAL: Well-nourished, well-developed female lying in bed in no acute distress watching TV. SKIN: Warm and dry. No rashes, ecchymoses or lesions. HEENT: Atraumatic, normocephalic with EOMI. No visible LAD or JVD appreciated. CARDIOVASCULAR: Regular rate and rhythm without murmurs, gallops, or rubs. 2+ pulses in all 4 extremities. RESPIRATORY: Clear to auscultation bilaterally with no CRW appreciated. Improved from prior exam. No increased work of breathing at this time. GASTROINTESTINAL: Positive bowel sounds. Abdomen soft, non-distended. Moderately tender to palpation, focally in RUQ near the umbilicus. Mass noted in same area. Accordion drain in placed; clean, dry, no active bleeding at site. No erythema, edema, or other signs of possible infection. [place] with thin, green colored fluid measuring approximately 10 cc without blood or maxim purulence appreciated. MUSCULOSKELETAL: Extremities without clubbing, cyanosis, or edema. No calf tenderness. Ambulating well per patient report. NEUROLOGICAL: Awake and alert. Oriented x3 normal speech and judgment. Procedures Drainage of intra-abdominal abscess on 01/01. (Luiz Arita MD R2) A/P Assessment and Plan Patient is a 42 year old female with a past medical history significant of Crohn 's Disease, admitted for sepsis secondary to worsening intraabdominal abscess. Discharge Planning Pending clinical improvement. (Luiz Arita MD R2) Problem List: (1) Intra-abdominal abscess ICD Codes: K65.1 - Peritoneal abscess Status: Acute Plan: Per ED report, patient had CT scan done at [facility] showing a growing abdominal abscess measuring 5.73.3. CT scan on 12-18-17 demonstrated right lower quadrant abscess, measuring 3.1 cm. Per IR and CRS, small abscess was not amenable to drainage or surgery. 01/04: Patient reports better pain control today. She is eating, passing gas and continues to have bowel movements. Labs on admission: * WBC 21.2. * Lactic acid 1.7 -> 2.7 -> 1.2 Microbiology: * Hemoccult negative. * Blood cultures x2: no growth to date. * Body Fluid: Sheryl Albicans. Imaging: * CT Abdomen/Pelvis 12/31: Approximately 3 cm abscess in the right lower quadrant adjacent to several loops of thickened bowel is relatively stable in size since December 19. There is some surrounding inflammatory change. No free air or significant free fluid. Increase in bibasilar lung consolidation could represent superimposed pneumonia. Medications: * Patient received 1x dose of Zosyn in the ED. * Continue Zosyn, discontinue * Fluconazole 800mg IV ONCE * Fluconazole 400mg IV q24hr. * Tylenol 650mg PO PRN pain 1-2. * [place] 5mg PO q4hr PRN pain 3-5. * [place] 7.5 mg PO q4hr PRN pain 6-10. * Morphine 4mg IV q3h PRN for breakthrough pain. Consults: * GI: Signed off. Crohn's management as outpatient. * General surgery: Signed off. No surgery at this time. * ID: Discontinue Zosyn at this time. Agree with starting fluconazole. * IR: Drainage of abscess on 01/01/18 with accord[address] drain in place. Plans for reevaluation 01/05 for possible drainage removal (2) Sepsis ICD Codes: A41.9 - Sepsis, unspecified organism Status: Resolved Plan: Resolved as of 12/30. On admission, patient met sepsis criteria due to tachycardia and leukocytosis with known source of infection. * See plan above. (3) Crohns disease ICD Codes: K50.90 - Crohn's disease, unspecified, without complications Status: Chronic Plan: Patient with history of Crohn's disease. She is currently not on maintenance medication. Microbiology: * Hemoccult negative. Medications: * Continue prednisone 40 mg PO daily. * Continue famotidine 20 mg IV push q12h. Consults: * GI: Signed off. Crohn's management as outpatient. (4) Atelectasis ICD Codes: J98.11 - Atelectasis Status: Acute Plan: Patient denies chest pain, cough, URI symptoms. CT on 12/31 with suspicion for pneumonia. Clinically, atelectasis more likely. 01/04: Patient without chest pain, shortness of breath or URI symptoms. Afebrile. PE findings suggest atelectasis. Imaging: * CT Abdomen/Pelvis 12/31: Approximately 3 cm abscess in the right lower quadrant adjacent to several loops of thickened bowel is relatively stable in size since December 19. There is some surrounding inflammatory change. No free air or significant free fluid. Increase in bibasilar lung consolidation could represent superimposed pneumonia. * CXR 01/01: Patchy consolidations bilaterally. * CXR 01/03: Persistent infiltrates. Orders: * Incentive spirometry. (5) Hypokalemia ICD Codes: E87.6 - Hypokalemia Status: Resolved Plan: Resolved as of 12/30. On admission, Potassium of 3.2. Medications: * NS + KCl 20meq at 60 ml/hr. * K-Lyte Cl Eff 25mew PO ONCE. (6) Nutrition, metabolism, and development symptoms ICD Codes: R63.8 - Other symptoms and signs concerning food and fluid intake Plan: Diet: * Regular as tolerated. Fluids: * NS + 20meq KCl 60 mls/hr. Electrolytes: * Monitor and replete as necessary. * Hypocalcemia - Started Calcium Carbonate 500mg BID. DVT prophylaxis: * Heparin 5,000 units SQ q8hr. (Luiz Arita MD R2) Problem List: (1) Intra-abdominal abscess ICD Codes: K65.1 - Peritoneal abscess Status: Acute Plan: Per ED report, patient had CT scan done at [facility] showing a growing abdominal abscess measuring 5.73.3. CT scan on 12-18-17 demonstrated right lower quadrant abscess, measuring 3.1 cm. Per IR and CRS, small abscess was not amenable to drainage or surgery. 01/04: Patient reports better pain control today. She is eating, passing gas and continues to have bowel movements. Labs on admission: * WBC 21.2. * Lactic acid 1.7 -> 2.7 -> 1.2 Microbiology: * Hemoccult negative. * Blood cultures x2: no growth to date. * Body Fluid: Sheryl Albicans. Imaging: * CT Abdomen/Pelvis 12/31: Approximately 3 cm abscess in the right lower quadrant adjacent to several loops of thickened bowel is relatively stable in size since December 19. There is some surrounding inflammatory change. No free air or significant free fluid. Increase in bibasilar lung consolidation could represent superimposed pneumonia. Medications: * Patient received 1x dose of Zosyn in the ED. * Continue Zosyn, discontinue * Fluconazole 800mg IV ONCE * Fluconazole 400mg IV q24hr. * Tylenol 650mg PO PRN pain 1-2. * [place] 5mg PO q4hr PRN pain 3-5. * [place] 7.5 mg PO q4hr PRN pain 6-10. * Morphine 4mg IV q3h PRN for breakthrough pain. Consults: * GI: Signed off. Crohn's management as outpatient. * General surgery: Signed off. No surgery at this time. * ID: Discontinue Zosyn at this time. Agree with starting fluconazole. * IR: Drainage of abscess on 01/01/18 with accord[address] drain in place. Plans for reevaluation 01/05 for possible drainage removal (2) Sepsis ICD Codes: A41.9 - Sepsis, unspecified organism Status: Resolved Plan: Resolved as of 12/30. On admission, patient met sepsis criteria due to tachycardia and leukocytosis with known source of infection. * See plan above. (3) Crohns disease ICD Codes: K50.90 - Crohn's disease, unspecified, without complications Status: Chronic Plan: Patient with history of Crohn's disease. She is currently not on maintenance medication. Microbiology: * Hemoccult negative. Medications: * Continue prednisone 40 mg PO daily. * Continue famotidine 20 mg IV push q12h. Consults: * GI: Signed off. Crohn's management as outpatient. (4) Atelectasis ICD Codes: J98.11 - Atelectasis Status: Acute Plan: Patient denies chest pain, cough, URI symptoms. CT on 12/31 with suspicion for pneumonia. Clinically, atelectasis more likely. 01/04: Patient without chest pain, shortness of breath or URI symptoms. Afebrile. PE findings suggest atelectasis. Imaging: * CT Abdomen/Pelvis 12/31: Approximately 3 cm abscess in the right lower quadrant adjacent to several loops of thickened bowel is relatively stable in size since December 19. There is some surrounding inflammatory change. No free air or significant free fluid. Increase in bibasilar lung consolidation could represent superimposed pneumonia. * CXR 01/01: Patchy consolidations bilaterally. * CXR 01/03: Persistent infiltrates. Orders: * Incentive spirometry. (5) Hypokalemia ICD Codes: E87.6 - Hypokalemia Status: Resolved Plan: Resolved as of 12/30. On admission, Potassium of 3.2. Medications: * NS + KCl 20meq at 60 ml/hr. * K-Lyte Cl Eff 25mew PO ONCE. (6) Nutrition, metabolism, and development symptoms ICD Codes: R63.8 - Other symptoms and signs concerning food and fluid intake Plan: Diet: * Regular as tolerated. Fluids: * NS + 20meq KCl 60 mls/hr. Electrolytes: * Monitor and replete as necessary. * Hypocalcemia - Started Calcium Carbonate 500mg BID. DVT prophylaxis: * Heparin 5,000 units SQ q8hr. See the residents documentation for details. I saw and evaluated the patient regarding the alba portions of this evaluation and agree with the residents findings and plans as written. Parts of this note were created using dragon voice recognition software program. While efforts were made to correct any mistakes made by this software, some mistakes, errors, and omissions may remain in the final note that were not caught when the note was originally created. Plan of care was discussed and agreed upon with the patient as specifically documented in the above note. An opportunity to ask questions with explanation was provided. Patient voiced understanding on all information reviewed and discussed. (Jarod Plascencia MD) Luiz Arita MD R2 Jan 05, 2018 09:15 Jarod Plascencia MD Jan 08, 2018 14:02
[2018-01-05 09:57] LABS: AUTOMATED NEUTROPHIL # 13.4 TH/MM3 (1.8-7.7); BASOPHIL # 0.1 TH/MM3 (0-0.2); BASOPHIL % 0.5 % (0.0-2.0); EOSINOPHIL # 0.2 TH/MM3 (0-0.4); EOSINOPHIL % 0.9 % (0.0-4.0); HEMATOCRIT 32.6 % (35.0-46.0); HEMOGLOBIN 11.5 GM/DL (11.6-15.3); LYMPH % 17.3 % (9.0-44.0); LYMPHOCYTE # 3.1 TH/MM3 (1.0-4.8); MEAN CELL VOLUME 80.2 FL (80.0-100.0); MEAN CORPUSCULAR HEMOGLOBIN 28.2 PG (27.0-34.0); MEAN CORPUSCULAR HGB CONC 35.2 % (32.0-36.0); MEAN PLATELET VOLUME 7.8 FL (7.0-11.0); MONO % 5.6 % (0.0-8.0); NEUT % 75.7 % (16.0-70.0); PLATELET COUNT 432 TH/MM3 (150-450); RED BLOOD COUNT 4.07 MIL/MM3 (4.00-5.30); RED CELL DISTRIBUTION WIDTH 15.2 % (11.6-17.2); WHITE BLOOD COUNT 17.7 TH/MM3 (4.0-11.0)
[2018-01-05] MEDS: predniSONE 20 MG TAB PO SCH (10:20)
[2018-01-05] MEDS: FAMOTIDINE 20 MG TAB PO SCH ×2 (10:20→21:57)
[2018-01-05] MEDS: CALCIUM CARBONATE 500 MG CHEWABLE TAB CHEW SCH ×2 (10:20→21:57)
[2018-01-05 10:43] LABS: ALBUMIN 2.7 GM/DL (3.4-5.0); AST (GOT) 6 U/L (15-37); BICARBONATE 28.9 MEQ/L (21.0-32.0); BLOOD UREA NITROGEN 11 MG/DL (7-18); CHLORIDE 101 MEQ/L (98-107); CREATININE 1.01 MG/DL (0.50-1.00); GLOMERULAR FILTRATION RATE 60 ML/MIN (>89); SODIUM (NA) 140 MEQ/L (136-145)
[2018-01-05 10:58] LABS: ALKALINE PHOSPHATASE 67 U/L (45-117); ALT (GPT) 15 U/L (10-53); CALCIUM 8.9 MG/DL (8.5-10.1); GLUCOSE,RANDOM 121 MG/DL (74-106); TOTAL BILIRUBIN ADULT 0.3 MG/DL (0.2-1.0); TOTAL PROTEIN 6.8 GM/DL (6.4-8.2)
[2018-01-05 12:00] VITALS: BP 140/68; PULSE 64; RESP 17; TEMP 97.3; O2SAT 95
--- NOTE | 2018-01-05 12:38 | HHI.PR ---
Addendum to Inpatient Note Additional Information transition to PO Fluconazole 400 mg daily for at least two weeks or longer if symptomatic Repeat CT A/P if her smx come back F/u with GI as o/p Terese Mitchell MD Jan 05, 2018 12:38
[2018-01-05] MEDS: NS + KCL 20 MEQ INJ 1,000 ML IV SCH ×2 (13:00→19:12)
[2018-01-05] MEDS: MORPHINE SULFATE 4 MG/ML INJ IV PUSH PRN (13:45)
--- NOTE | 2018-01-05 16:05 | RADRPT ---
EXAM DATE: 01/05/2018 3:03 PM EDT AGE/SEX: 42 years / Female INDICATIONS: Abscess. CLINICAL DATA: This is the patient's initial encounter. Patient reports that signs and symptoms have been present for 1 day and indicates a pain score of 4/10. MEDICAL/SURGICAL HISTORY: Cirrhosis. Gastroesophageal reflux disease. Cholecystectomy. Append ectomy. Colon resection. RADIATION DOSE: 14.51 CTDI (mGy) COMPARISON: [facility] – [place] ABDOMEN & PELVIS W CONTRAST, 12/31/2017. . TECHNIQUE: Multiple contiguous axial images were obtained through the abdomen. Images were obtained using multiple row detector helical technique. Using dose reduction techniques, radiation dose was ke pt as low as reasonably achievable to obtain optimal diagnostic quality images. FINDINGS: Lower Lungs: Slight interval improvement in basilar consolidative changes. Liver: Unremarkable for noncontrast appearance. Gallbladder surgically absent Spleen: Homogeneous density without enlargement. Pancreas: Unremarkable without mass or calcification. Kidneys: Normal in size and shape. No evidence of mass or hydronephrosis. Adrenal Glands: Unremarkable. Aorta: The aorta and proximal iliac vessels are grossly unremarkable without aneurysmal dilation. Bowel/Mesentery: Interval decrease in right lower quadrant mesenteric inflammatory change. Drainage catheter in place with no significant residual fluid density around the catheter loop. Abdominal Wall: Intact. Retroperitoneum: No evidence of adenopathy in the retrocrural, para-aortic, or deep pelvic regions. Bladder: Contours are smooth. Reproductive Organs: No abnormal masses or calcifications seen. Inguinal: The inguinal region is unremarkable without evidence of adenopathy. Bony Structures: Unremarkable. CONCLUSION: No significant residual fluid around abscess drainage catheter in the right lower quadrant of the abd omen. Electronically signed by: Dre Suresh MD 01/05/2018 4:04 PM EDT
[2018-01-05] MEDS: FLUCONAZOLE 400 MG PREMIX BAG 200 ML IV SCH (18:01)
[2018-01-05 20:00] VITALS: BP 128/63; PULSE 64; RESP 18; TEMP 98; O2SAT 96
[2018-01-06] VITALS: BP 134/76; PULSE 54; RESP 18; TEMP 97.9; O2SAT 96
[2018-01-06 05:30] LABS: HEMATOCRIT 35.6 % (35.0-46.0); HEMOGLOBIN 11.7 GM/DL (11.6-15.3); MEAN CELL VOLUME 80.7 FL (80.0-100.0); MEAN CORPUSCULAR HEMOGLOBIN 26.5 PG (27.0-34.0); MEAN CORPUSCULAR HGB CONC 32.9 % (32.0-36.0); MEAN PLATELET VOLUME 8.1 FL (7.0-11.0); PLATELET COUNT 432 TH/MM3 (150-450); RED BLOOD COUNT 4.41 MIL/MM3 (4.00-5.30); RED CELL DISTRIBUTION WIDTH 15.8 % (11.6-17.2); WHITE BLOOD COUNT 19.2 TH/MM3 (4.0-11.0)
[2018-01-06] MEDS: HEPARIN SODIUM - SQ 10,000 UNITS/ML VIAL SQ SCH ×2 (05:30→13:28)
[2018-01-06] MEDS: SODIUM CHLORIDE 0.9% 10 ML VIAL IRRIGATION SCH (06:00)
[2018-01-06 06:03] LABS: ALBUMIN 2.7 GM/DL (3.4-5.0); ALKALINE PHOSPHATASE 66 U/L (45-117); ALT (GPT) 16 U/L (10-53); AST (GOT) 7 U/L (15-37); BICARBONATE 29.7 MEQ/L (21.0-32.0); BLOOD UREA NITROGEN 11 MG/DL (7-18); CALCIUM 8.8 MG/DL (8.5-10.1); CHLORIDE 100 MEQ/L (98-107); GLOMERULAR FILTRATION RATE 68 ML/MIN (>89); GLUCOSE,RANDOM 76 MG/DL (74-106); SODIUM (NA) 139 MEQ/L (136-145); TOTAL BILIRUBIN ADULT 0.2 MG/DL (0.2-1.0); TOTAL PROTEIN 6.9 GM/DL (6.4-8.2)
[2018-01-06 08:00] VITALS: BP 141/75; PULSE 64; RESP 18; TEMP 97.8; O2SAT 98
[2018-01-06] MEDS ORDERED: HYDR-3516 PO (08:06)
[2018-01-06] MEDS ORDERED: FAMO20TA2 PO (08:06)
[2018-01-06] MEDS ORDERED: DIFL200T PO (08:06)
[2018-01-06] MEDS ORDERED: PRED20 PO (08:23)
--- NOTE | 2018-01-06 08:25 | HHI.DCPOC ---
Discharge Care Plan Diagnosis: (1) Intra-abdominal abscess (2) Crohns disease (3) Hypokalemia (4) Atelectasis Goals to Promote Your Health * To prevent worsening of your condition and complications * To maintain your health at the optimal level Directions to Meet Your Goals Take your medications as prescribed Follow your dietary instruction Follow activity as directed Keep your appointments as scheduled Take your immunizations and boosters as scheduled If your symptoms worsen call your PCP, if no PCP go to Urgent Care Center or Emergency Room Smoking is Dangerous to Your Health. Avoid second hand smoke Call the 24-hour hour crisis hotline for domestic abuse at Delmy Benson MD R1 Jan 06, 2018 08:24
[2018-01-06] MEDS: predniSONE 20 MG TAB PO SCH (08:58)
[2018-01-06] MEDS: CALCIUM CARBONATE 500 MG CHEWABLE TAB CHEW SCH (08:58)
[2018-01-06] MEDS: SODIUM CHLORIDE 0.9% FLUSH 10 ML FLUSH IV FLUSH SCH (08:58)
[2018-01-06] MEDS: FAMOTIDINE 20 MG TAB PO SCH (08:58)
[2018-01-06] MEDS ORDERED: FLUCONAZOLE 200 MG TAB PO SCH (13:00)
--- NOTE | 2018-01-06 17:27 | HHI.FPPN ---
Subjective Remarks Patient was seen and evaluated this morning. She is feeling significantly better and is eager to go home. Patient denies chest pain, heart palpitations, shortness of breath, nausea/vomiting, diarrhea and constipation. All questions were answered. (Delmy Benson MD R1) Objective Vitals Vital Signs Date Time Temp Pulse Resp B/P (MAP) Pulse Ox O2 Delivery O2 Flow Rate FiO2 01/06/18 08:00 97.8 64 18 141/75 (97) 98 01/06/18 00:00 97.9 54 18 134/76 (95) 96 01/05/18 20:00 98.0 64 18 128/63 (84) 96 I/O 01/05/18 01/05/18 01/05/18 01/06/18 01/06/18 01/06/18 07:00 15:00 23:00 07:00 15:00 23:00 Intake Total 240 ml 1140 ml Output Total 0 ml Balance 240 ml 0 ml 1140 ml Intake Oral 240 ml 900 ml IV Total 240 ml Output Drainage Total 0 ml # Voids 3 4 # Bowel Movements 0 1 (Delmy Benson MD R1) Result Diagram: 01/06/18 0358 01/06/18 0358 Imaging Last Impressions Abdomen/Pelvis CT 01/05/18 0000 Signed Impressions: CONCLUSION: No significant residual fluid around abscess drainage catheter in the right low er quadrant of the abdomen. Chest X-Ray 01/03/18 0000 Signed Impressions: CONCLUSION: Persistent infiltrates Abscess Drainage CT 01/01/18 0000 Signed Impressions: CONCLUSION: 1. Uncomplicated CT guided drainage with placement of 8 Polish locking pigtail drain. Objective Remarks GENERAL: This is a well-nourished, well-developed patient, in no apparent distress. SKIN: No rashes, ecchymoses or lesions. Cool and dry. HEAD: Atraumatic. Normocephalic. EYES: Pupils equal round. Extraocular motions intact. No scleral icterus. No injection or drainage. ENT: Nose without bleeding, purulent drainage or septal hematoma. Airway patent. NECK: Trachea midline. No JVD or lymphadenopathy. Supple. CARDIOVASCULAR: Regular rate and rhythm without murmurs, gallops, or rubs. RESPIRATORY: Breath sounds equal bilaterally. Clear to auscultation. No wheezes , rales, or rhonchi. GASTROINTESTINAL: Positive bowel sounds. Abdomen soft, non-tender, non- distended. Bandage to right of/inferior to umbilicus. MUSCULOSKELETAL: Extremities without clubbing, cyanosis, or edema. No calf tenderness. NEUROLOGICAL: Awake and alert. Oriented x3 Procedures Drainage of intra-abdominal abscess on 01/01. (Delmy Benson MD R1) Urinary Catheter: No (Delmy Benson MD R1) Vascular Central Line Catheter: No (Delmy Benson MD R1) A/P Assessment and Plan Patient is a 42 year old female with a past medical history significant of Crohn 's Disease, admitted for sepsis secondary to worsening intraabdominal abscess. Discharge Planning Today. (Delmy Benson MD R1) Attending Attestation Patient seen and examined. Case reviewed and discussed with the resident team. Agree with plan of care as discussed with me and documented in the resident note. she is happy to go home (Melina Wren MD) Problem List: (1) Intra-abdominal abscess ICD Codes: K65.1 - Peritoneal abscess Status: Acute Plan: Per ED report, patient had CT scan done at [facility] showing a growing abdominal abscess measuring 5.73.3. CT scan on 12-18-17 demonstrated right lower quadrant abscess, measuring 3.1 cm. Per IR and CRS, small abscess was not amenable to drainage or surgery. 01/06: Patient reports better pain control today. She is eating, passing gas and continues to have bowel movements. Labs on admission: * WBC 21.2. * Lactic acid 1.7 -> 2.7 -> 1.2 Microbiology: * Hemoccult negative. * Blood cultures x2: no growth to date. * Body Fluid: Sheryl Albicans. Sensitivities available. Imaging: * CT Abdomen/Pelvis 12/31: Approximately 3 cm abscess in the right lower quadrant adjacent to several loops of thickened bowel is relatively stable in size since December 19. There is some surrounding inflammatory change. No free air or significant free fluid. Increase in bibasilar lung consolidation could represent superimposed pneumonia. * CT Abdomen/Pelvis 01/05: No significant residual fluid around abscess drainage catheter in the right lower quadrant of the abdomen. Medications: * Patient received 1x dose of Zosyn in the ED. * Continue Zosyn, discontinue * Fluconazole 800mg IV ONCE * Fluconazole 400mg IV q24hr. * Tylenol 650mg PO PRN pain 1-2. * [place] 5mg PO q4hr PRN pain 3-5. * [place] 7.5 mg PO q4hr PRN pain 6-10. * Morphine 4mg IV q3h PRN for breakthrough pain. * To be discharged on Fluconazole 400mg PO q24hr x10 weeks. Consults: * GI: Signed off. Crohn's management as outpatient. * General surgery: Signed off. No surgery at this time. * ID: Discontinue Zosyn at this time. Agree with fluconazole. * IR: Drain removed 01/05. (2) Sepsis ICD Codes: A41.9 - Sepsis, unspecified organism Status: Resolved Plan: Resolved as of 12/30. On admission, patient met sepsis criteria due to tachycardia and leukocytosis with known source of infection. * See plan above. (3) Crohns disease ICD Codes: K50.90 - Crohn's disease, unspecified, without complications Status: Chronic Plan: Patient with history of Crohn's disease. She is currently not on maintenance medication. Microbiology: * Hemoccult negative. Medications: * Continue prednisone 40 mg PO daily. * Continue famotidine 20 mg IV push q12h. Consults: * GI: Signed off. Crohn's management as outpatient. (4) Atelectasis ICD Codes: J98.11 - Atelectasis Status: Acute Plan: Patient denies chest pain, cough, URI symptoms. CT on 12/31 with suspicion for pneumonia. Clinically, atelectasis more likely. 01/06: Patient without chest pain, shortness of breath or URI symptoms. Afebrile. PE findings suggest atelectasis. Imaging: * CT Abdomen/Pelvis 12/31: Approximately 3 cm abscess in the right lower quadrant adjacent to several loops of thickened bowel is relatively stable in size since December 19. There is some surrounding inflammatory change. No free air or significant free fluid. Increase in bibasilar lung consolidation could represent superimposed pneumonia. * CXR 01/01: Patchy consolidations bilaterally. * CXR 01/03: Persistent infiltrates. Orders: * Incentive spirometry. (5) Hypokalemia ICD Codes: E87.6 - Hypokalemia Status: Resolved Plan: Resolved as of 12/30. On admission, Potassium of 3.2. Medications: * NS + KCl 20meq at 60 ml/hr. * K-Lyte Cl Eff 25mew PO ONCE. (6) Nutrition, metabolism, and development symptoms ICD Codes: R63.8 - Other symptoms and signs concerning food and fluid intake Plan: Diet: * Regular as tolerated. Fluids: * Tolerating PO. Electrolytes: * Monitor and replete as necessary. DVT prophylaxis: * Heparin 5,000 units SQ q8hr. (Delmy Benson MD R1) Delmy Benson MD R1 Jan 06, 2018 17:27 Melina Wren MD Jan 07, 2018 15:53
== END 2018-01-06 13:38 | disposition home or self-care (01) | DRG 871 ==
LOC: NEPE 18:25 → NEDA 21:07 → N07A 22:40
PROVIDERS: ADMIT Family Medicine; ATTEND Family Medicine
PROC: 0W9F30Z Drainage of Abdominal Wall with Drainage Device, Percutaneous Approach (ICD-10-PCS; principal; 2018-01-01)
DX: A41.9 Sepsis, unspecified organism (principal); K65.1 Peritoneal abscess; K50.90 Crohn's disease, unspecified, without complications; J18.9 Pneumonia, unspecified organism; E83.51 Hypocalcemia; J98.11 Atelectasis; E87.6 Hypokalemia; F41.9 Anxiety disorder, unspecified; K21.9 Gastro-esophageal reflux disease without esophagitis; J44.9 Chronic obstructive pulmonary disease, unspecified; R63.4 Abnormal weight loss; R63.8 Other symptoms and signs concerning food and fluid intake; F12.90 Cannabis use, unspecified, uncomplicated; F17.210 Nicotine dependence, cigarettes, uncomplicated; E66.3 Overweight; Z68.32 Body mass index [BMI] 32.0-32.9, adult; Z83.3 Family history of diabetes mellitus; Z90.49 Acquired absence of other specified parts of digestive tract; Z91.19 Patient's noncompliance with other medical treatment and regimen; M54.5 Low back pain
CPT/HCPCS: 71046; 74176; 74177; 75989; 80048; 80053; 81001; 82272; 83605; 83690; 83735; 84132; 84155; 85025; 85027; 85610; 85652; 85730; 86850; 86900; 86901; 87040; 87070; 87205; 94150; 96374; 96375; 99151; 99153; C1729; C1769; J1450; J1644; J2250; J2270; J2543; J3010; J3480; J7512; Q9967